=== PATIENT | female | born 1965 | race Caucasian/White ===

== ENCOUNTER → 2020-01-20 08:54 | Outpatient (BNVA) | payer MEDICARE, SELFPAY | PROVIDERS: Family Provider Internal Medicine; PCP Internal Medicine; Visit Provider Anesthesiology Pain Medicine | DX: M96.1 Postlaminectomy syndrome, not elsewhere classified (principal); M54.5 Low back pain; Z79.891 Long term (current) use of opiate analgesic | CPT/HCPCS: 64483; 64484; J1040; J2001; J3490 ==

== ENCOUNTER → 2020-02-03 09:48 | Outpatient (BNVA) | payer MEDICARE, SELFPAY | PROVIDERS: Family Provider Internal Medicine; PCP Internal Medicine; Visit Provider Anesthesiology Pain Medicine | DX: M54.5 Low back pain (principal); M54.9 Dorsalgia, unspecified; M96.1 Postlaminectomy syndrome, not elsewhere classified; M54.2 Cervicalgia; Z79.891 Long term (current) use of opiate analgesic | CPT/HCPCS: 99214 ==

== ENCOUNTER 2020-02-10 08:45 | Outpatient (CLI) | payer MEDICARE, SELFPAY ==
--- NOTE | 2020-02-10 09:00 | IR_ITS ---
WS: [id number] CERVICAL AND LUMBAR MYELOGRAMs HISTORY: Neck pain COMPARISON: 11/21/2017 FLUOROSCOPY TIME: 1.1 minutes. Procedure, risks and complications were explained to the patient. Risks including bleeding, infection , headaches, allergic reaction and seizures. Consent has been obtained. With the patient in prone position the skin over the lumbar region is cleansed with ChloraPrep and an esthetized with lidocaine. 22-gauge spinal needle is inserted into the thecal sac at the appropriate level determined by fluoroscopy. Omnipaque 300; 12 ml is injected slowly under fluoroscopy with no co mplications. Needle bevel is perpendicular to the longitudinal fibers of the dura. Stylet is reinsert ed prior to removal of the needle. Patient tolerated the procedure well. Patient will proceed to CT f or further evaluation. Good injection into the thecal sac. Posterior lumbar fusion from L4 to S1 bilaterally. No fractures. Disc spacer at L4-5 is unchanged. Large laminectomy defects are present at the L4-5 level. No fractur es are identified. Incomplete bone grafting material at the L4-5 level. There is very mild narrowing of the thecal sac at the L3-4 disc level. With flexion and extension no instability. Extensive anterior cervical fusion with interbody spacers from C3 through C7. Complete fusion across the disc spaces at C3-4, C4-5 and C5-6. The C6-7 disc space is poorly visualized radiographically. Po sterior alignment remains normal. During flexion C2 is anteriorly by 3.4 mm. IR/IR myelogram spine cervic/lumb IMPRESSION: 1. Uncomplicated cervical and lumbar myelograms. 2. Anterior cervical fusion is intact from C3 to C7 with complete ankylosis ac ross the disc spaces C3-4, C4-5 and C5-6. 3. Mild flexion instability of C2. 4. Prior posterior lumbar fusion from L4 to S1 with large L4-5 laminectomy def ects. No complications. 5. No lumbar spine instability.
[2020-02-10] MEDS: iohexol 300 mg/mL 50 mL Btl INTRATHECA (10:13)
--- NOTE | 2020-02-10 11:00 | CT_ITS ---
WS: [id number] CT CERVICAL MYELOGRAM HISTORY: Neck pain Technique: All CT scans at [facility] use at least one of these dose optimization techniq ues: automated exposure control; mA and/or kV adjustment per patient size (includes targeted exams wh ere dose is matched to clinical indication); or iterative reconstruction. DLP: 1469.42 mGycm COMPARISON: 06/25/2016 and 08/10/2013 Good opacification of thecal sac with contrast. Prior anterior cervical fusion extends from C3 through C7. Complete fusion across the C3-4, C4-5 and C5-6 disc levels. Incomplete fusion at C6-7. Moderate disc space narrowing at C7-T1 with endplate ost eophytes. Craniocervical junction is normal. The entire central canal mildly narrowed. C1-C2: Mild facet arthropathy with RIGHT foraminal osteophytes and only mild RIGHT foraminal narrowin g. C2-C3: Mild osteophytic ridging without stenosis. C3-C4: Mild osteophytic ridging without stenosis. C4-C5: Mild osteophytic ridging without stenosis. C5-C6: Mild osteophytic ridging without stenosis. C6-C7: Mild osteophytic ridging. Very mild narrowing of the LEFT foramen. No significant disc protrusion at C7-T1 identified. There is a very small RIGHT paracentral disc prot rusion. Lung apices are clear. Paraspinal soft tissues are negative. CT/CT cervical spine w con [id number] IMPRESSION: 1. Prior anterior cervical fusion from C3 through C7 is intact with no evidenc e for loosening or fracture. 2. Complete fusion across the C3-4, C4-5 and C5-6 disc spacers with incomplete fusion at the C6-7 level. 3. No significant stenosis centrally or focal disc protrusions with cord conta ct.
--- NOTE | 2020-02-10 11:30 | CT_ITS ---
WS: [id number] CT MYELOGRAM LUMBAR SPINE HISTORY: Low back pain TECHNIQUE: Contiguous 2.5 mm axial imaging performed from T12 through the mid sacral level. Bone and soft tissue windows reviewed. Sagittal and coronal reformats are submitted and reviewed. DLP: 1804.[address] scans at [facility] use at least one of these dose optimization techniques: automat ed exposure control; mA and/or kV adjustment per patient size (includes targeted exams where dose is matched to clinical indication); or iterative reconstruction. COMPARISON: 07/06/2019 Status post prior posterior lumbar fusion from L4 to S1. Vertical rods and pedicle screws appear to b e intact. No lucency or acute fracture. Large laminectomy defects are noted from L3 to L5. Moderate d isc space narrowing at L4-5 with interbody spacer. No fractures. L1-L2: L2-L3: Mild asymmetric disc bulging, asymmetric to the LEFT but no contact on the exiting nerve roots . L3-L4: Moderate diffuse disc bulging which is slightly asymmetric to the RIGHT. Ligamentum flavum hyp ertrophy and facet arthropathy. Very mild encroachment and narrowing of the central canal with disc c ontact on the L3 nerve root in the RIGHT foramen. L4-L5: Large posterior laminectomy defect. Thecal sac is widely patent with mild clumping of the nerv e roots in the periphery. No foraminal stenosis. L5-S1: Large posterior laminectomy defects with mild clumping of the nerve roots. Broad-based disc bu lging centrally. Very slight contact on the posterior L5 nerve root in the foramen but no displacemen t. Mild bilateral foraminal narrowing. Visualized sacrum is normal. No bone destruction. Moderate atherosclerosis within the visualized abdominal aorta. CT/CT lumbar spine w con [id number] IMPRESSION: 1. Status post posterior lumbar fusion from L3 to S1 bilaterally with no hardw are fracture or evidence for loosening. 2. Bilateral large laminectomy defects are noted from L3 to L5. 3. Mild disc protrusion is new with mild contact on the RIGHT L3 nerve root. M ild narrowing of the RIGHT L3-4 foramen. 4. Mild bilateral foraminal narrowing at L5-S1 with no change. 5. Mild arachnoiditis.
== END 2020-02-10 08:46 | disposition home or self-care (01) ==
LOC: RADWPI 08:51
PROVIDERS: Family Provider Internal Medicine; PCP Internal Medicine; Visit Provider Licensed Practical Nurse
DX: M54.2 Cervicalgia (principal); Z98.1 Arthrodesis status; M43.27 Fusion of spine, lumbosacral region; M51.26 Other intervertebral disc displacement, lumbar region; G03.9 Meningitis, unspecified; M48.07 Spinal stenosis, lumbosacral region; M43.22 Fusion of spine, cervical region
CPT/HCPCS: 62305; 72040; 72120; 72126; 72132; Q9967

== ENCOUNTER → 2020-03-04 13:30 | Outpatient (BNVA) | payer MEDICARE, SELFPAY | PROVIDERS: Family Provider Internal Medicine; PCP Internal Medicine; Visit Provider Anesthesiology Pain Medicine | DX: M54.41 Lumbago with sciatica, right side (principal); M54.9 Dorsalgia, unspecified; M96.1 Postlaminectomy syndrome, not elsewhere classified; M54.2 Cervicalgia; Z79.891 Long term (current) use of opiate analgesic | CPT/HCPCS: 64483; 64484; 99214; J1040; J2001; J3490 ==

== ENCOUNTER 2020-03-10 11:48 | Outpatient (CLI) | payer MEDICARE, SELFPAY ==
--- NOTE | 2020-03-10 11:56 | MM_ITS ---
WS: [id number] BILATERAL DIGITAL SCREENING MAMMOGRAPHY WITH CAD CLINICAL INFORMATION: SCREENING HISTORY: Screening mammogram. No current complaints. COMPARISON: June 19, 2010 TECHNIQUE: Bilateral CC and MLO views. FINDINGS: Scattered fibroglandular densities bilaterally. No suspicious focal mass, asymmetry, calcifications, or architectural distortion. No evidence of malignancy. Stable dense parenchymal tissue subareolar bi laterally. MM/[place] [id number] IMPRESSION: BI-RADS: 2-Benign FOLLOW UP: 1 Year Follow-up Recommend return to annual screening mammography.
== END 2020-03-10 11:49 | disposition home or self-care (01) ==
LOC: RADSHAW 11:54
PROVIDERS: PCP Internal Medicine; Visit Provider Internal Medicine
DX: Z12.31 Encounter for screening mammogram for malignant neoplasm of breast (principal)
CPT/HCPCS: 77067

== ENCOUNTER → 2020-03-17 13:42 | Outpatient (BNVA) | payer MEDICARE, SELFPAY | PROVIDERS: Family Provider Internal Medicine; PCP Internal Medicine; Visit Provider Anesthesiology Pain Medicine | DX: M54.41 Lumbago with sciatica, right side (principal); M54.9 Dorsalgia, unspecified; M54.2 Cervicalgia; M96.1 Postlaminectomy syndrome, not elsewhere classified | CPT/HCPCS: 99213 ==

== ENCOUNTER → 2020-03-28 13:50 | Outpatient (BNVA) | payer MEDICARE, SELFPAY | PROVIDERS: Family Provider Internal Medicine; PCP Internal Medicine; Visit Provider Anesthesiology Pain Medicine | DX: M54.41 Lumbago with sciatica, right side (principal); M96.1 Postlaminectomy syndrome, not elsewhere classified; M54.9 Dorsalgia, unspecified | CPT/HCPCS: 64483; 64484; J1040; J3490 ==

== ENCOUNTER → 2020-05-13 09:37 | Outpatient (BNVA) | payer MEDICARE, SELFPAY | PROVIDERS: Family Provider Internal Medicine; PCP Internal Medicine; Visit Provider Anesthesiology Pain Medicine | DX: M54.41 Lumbago with sciatica, right side (principal); M54.9 Dorsalgia, unspecified; M96.1 Postlaminectomy syndrome, not elsewhere classified; M54.2 Cervicalgia; Z79.891 Long term (current) use of opiate analgesic | CPT/HCPCS: 99213 ==

== ENCOUNTER → 2020-06-06 10:27 | Outpatient (BNVA) | payer MEDICARE, SELFPAY | PROVIDERS: Family Provider Internal Medicine; PCP Internal Medicine; Visit Provider Licensed Practical Nurse | DX: M96.1 Postlaminectomy syndrome, not elsewhere classified (principal) | CPT/HCPCS: 99213 ==

== ENCOUNTER 2020-06-17 13:27 | Outpatient (CLI) | payer MEDICARE, SELFPAY ==
--- NOTE | 2020-06-17 13:43 | MR_ITS ---
WS: [id number] MRI LUMBAR SPINE WITH AND WITHOUT CONTRAST. HISTORY: LOW BACK PAIN COMPARISON: 02/10/2020 CT lumbar spine and prior MRI 09/18/2017 TECHNIQUE: Sagittal and axial multisequence imaging is submitted. Sagittal and axial T1 fat sat seque nces post-ProHance 17 cc IV. Prior fusion hardware in the cervical spine. Mild straightening of the normal lumbar alignment. Pedicle screws and vertical rods extend from L4 to S1 bilaterally. Mild disc desiccation at L4-5 and L5-S1 with a disc spacer at L4-5. No marrow edema or acute fracture. The remaining discs are well maintained. Conus terminates normally at L2. L1-L2: No stenosis. Very mild facet arthritis. L2-L3: No stenosis. Mild facet joint arthritis. L3-L4: Mild annular disc bulging. Very shallow RIGHT foraminal soft tissue protrusion. No contact on the nerve root. Minimal narrowing of the foramen. L4-L5: Widely patent thecal sac with a large posterior laminectomy defect. Nerve roots are becoming c lumped within the thecal sac. There is very mild encroachment into the foramen by osteophytes. No sev ere stenosis. L5-S1: Large posterior laminectomy defect. No stenosis. Clumping of the nerve roots in the periphery of the thecal sac. No stenosis or recurrent disc herniation. On the postcontrast imaging there is no discitis or osteomyelitis. On the postcontrast imaging there is enhancement in the RIGHT L3-4 foramen surrounding the area of the described disc protrusion. There is no enhancement of the disc protrusion. No disc contact on the nerve root. Additional mild enhance ment in the foramen and surrounding the facet joints of L3-4, L4-5 and L5-S1 MR/MR lumbar spine wo/w con [id number] IMPRESSION: 1. Status post posterior lumbar fusion from L4 to S1. No complications are teresita dent. 2. Very tiny new RIGHT foraminal disc protrusion at L3-4 with no significant c ontact on the nerve root. 3. Mild enhancement surrounding the facet joints of L3-4 through L5-S1. 4. Arachnoiditis.
--- NOTE | 2020-06-17 16:00 | XR_ITS ---
WS: [id number] LATERAL LUMBAR SPINE: 3 view. Lateral radiographs are performed in upright neutral, flexion and extension to the patient's toleranc e. HISTORY: Low back pain COMPARISON: 09/08/2018 Prior posterior lumbar fusion with vertical rods and pedicle screws from L4 to S1. Hardware is intact . No lucency around the screws. Mild increase in the lumbar lordosis. Mild narrowing of the disc spaces at L4-5 and L5-S1. With flexi on and extension there is very little movement of the vertebral bodies. No instability. Mild atherosclerosis aorta. XR/XR lumbar spine f/e only [id number] IMPRESSION: 1. Prior L4-S1 lumbar fusion is stable. 2. No lumbar spine instability.
== END 2020-06-17 13:28 | disposition home or self-care (01) ==
LOC: RADWPI 13:33
PROVIDERS: Family Provider Internal Medicine; PCP Internal Medicine; Visit Provider Licensed Practical Nurse
DX: M43.26 Fusion of spine, lumbar region (principal); G03.9 Meningitis, unspecified; M43.27 Fusion of spine, lumbosacral region; M51.26 Other intervertebral disc displacement, lumbar region
CPT/HCPCS: 72120; 72158; A9579

== ENCOUNTER → 2020-06-22 08:47 | Outpatient (BNVA) | payer MEDICARE, SELFPAY | PROVIDERS: Family Provider Internal Medicine; PCP Internal Medicine; Visit Provider Licensed Practical Nurse | DX: M96.1 Postlaminectomy syndrome, not elsewhere classified (principal) | CPT/HCPCS: 99214 ==

== ENCOUNTER → 2020-07-07 10:48 | Outpatient (BNVA) | payer MEDICARE, SELFPAY | PROVIDERS: Family Provider Internal Medicine; PCP Internal Medicine; Visit Provider Anesthesiology Pain Medicine | DX: G89.29 Other chronic pain (principal); M54.9 Dorsalgia, unspecified; M96.1 Postlaminectomy syndrome, not elsewhere classified; M54.2 Cervicalgia; M79.609 Pain in unspecified limb; Z79.891 Long term (current) use of opiate analgesic | CPT/HCPCS: 99213; 99214 ==

== ENCOUNTER → 2020-07-11 13:54 | Outpatient (BNVA) | payer MEDICARE, SELFPAY | PROVIDERS: Family Provider Internal Medicine; PCP Internal Medicine; Visit Provider Anesthesiology Pain Medicine | DX: M47.816 Spondylosis without myelopathy or radiculopathy, lumbar region (principal); M54.9 Dorsalgia, unspecified; Z79.891 Long term (current) use of opiate analgesic | CPT/HCPCS: 64493; 64494; 64495; J1040; J3490 ==

== ENCOUNTER → 2020-08-08 09:12 | Outpatient (BNVA) | payer MEDICARE, SELFPAY | PROVIDERS: Family Provider Internal Medicine; PCP Internal Medicine; Visit Provider Anesthesiology Pain Medicine | DX: M54.41 Lumbago with sciatica, right side (principal); M79.604 Pain in right leg; M96.1 Postlaminectomy syndrome, not elsewhere classified; M54.9 Dorsalgia, unspecified; M54.2 Cervicalgia; Z79.891 Long term (current) use of opiate analgesic | CPT/HCPCS: 99213; 99214 ==

== ENCOUNTER → 2020-09-05 09:20 | Outpatient (BNVA) | payer MEDICARE, SELFPAY | PROVIDERS: Family Provider Internal Medicine; PCP Internal Medicine; Visit Provider Anesthesiology Pain Medicine | DX: M54.41 Lumbago with sciatica, right side (principal); M54.9 Dorsalgia, unspecified; M96.1 Postlaminectomy syndrome, not elsewhere classified; M54.2 Cervicalgia; Z79.891 Long term (current) use of opiate analgesic | CPT/HCPCS: 99213 ==

== ENCOUNTER → 2020-10-13 09:14 | Outpatient (BNVA) | payer MEDICARE, SELFPAY | PROVIDERS: Family Provider Internal Medicine; PCP Internal Medicine; Visit Provider Anesthesiology Pain Medicine | DX: M96.1 Postlaminectomy syndrome, not elsewhere classified (principal); M54.9 Dorsalgia, unspecified; M54.2 Cervicalgia; R51.9 Headache, unspecified; Z79.891 Long term (current) use of opiate analgesic | CPT/HCPCS: 99214 ==

== ENCOUNTER → 2020-11-23 08:14 | Outpatient (BNVA) | payer MEDICARE, SELFPAY | PROVIDERS: Family Provider Internal Medicine; PCP Internal Medicine; Visit Provider Anesthesiology Pain Medicine | DX: G89.29 Other chronic pain (principal); M54.41 Lumbago with sciatica, right side; M96.1 Postlaminectomy syndrome, not elsewhere classified; M54.9 Dorsalgia, unspecified; M25.561 Pain in right knee; M54.2 Cervicalgia; Z79.891 Long term (current) use of opiate analgesic | CPT/HCPCS: 20610; 99214; J1030; J3490 ==

== ENCOUNTER → 2020-11-28 13:53 | Outpatient (BNVA) | payer MEDICARE, SELFPAY | PROVIDERS: Family Provider Internal Medicine; PCP Internal Medicine; Visit Provider Anesthesiology Pain Medicine | DX: M54.16 Radiculopathy, lumbar region (principal); M96.1 Postlaminectomy syndrome, not elsewhere classified; M54.9 Dorsalgia, unspecified; Z79.891 Long term (current) use of opiate analgesic | CPT/HCPCS: 64483; 64484; J1030; J1100; J3490 ==

== ENCOUNTER → 2020-12-22 10:15 | Outpatient (BNVA) | payer MEDICARE, SELFPAY | PROVIDERS: Family Provider Internal Medicine; PCP Internal Medicine; Visit Provider Anesthesiology Pain Medicine | DX: M54.9 Dorsalgia, unspecified (principal); M96.1 Postlaminectomy syndrome, not elsewhere classified; M19.90 Unspecified osteoarthritis, unspecified site; M54.2 Cervicalgia; M25.561 Pain in right knee; Z79.891 Long term (current) use of opiate analgesic | CPT/HCPCS: 99215 ==

== ENCOUNTER → 2021-01-23 08:04 | Outpatient (BNVA) | payer MEDICARE, SELFPAY | PROVIDERS: Family Provider Internal Medicine; PCP Internal Medicine; Referring Provider Anesthesiology Pain Medicine; Visit Provider Specialist | DX: M25.562 Pain in left knee (principal); M25.561 Pain in right knee | CPT/HCPCS: 73560; 73565 ==

== ENCOUNTER 2021-02-03 07:21 | Outpatient (RCR) | payer MEDICARE, SELFPAY | END 2021-02-20 23:59 | disposition home or self-care (01) | LOC: SPT 07:21 | PROVIDERS: Family Provider Internal Medicine; PCP Internal Medicine; Referring Provider Specialist; Visit Provider Specialist | DX: M17.11 Unilateral primary osteoarthritis, right knee (principal) | CPT/HCPCS: 97110; 97161 ==

== ENCOUNTER 2021-02-17 17:01 | Emergency (ER) | payer MEDICARE, SELFPAY ==
[2021-02-17 17:27] VITALS: BP 162/97; PULSE 63; RESP 18; TEMP 36.6; O2SAT 97; BMI 27.4
--- NOTE | 2021-02-17 17:38 | XRR_ITS ---
PROCEDURE INFORMATION: Exam: XR Chest Exam date and time: 02/17/2021 6:05 PM Age: 55 years old Clinical indication: Prior surgery; Surgery type: Spine; Patient HX: Palpatations xtoday, ex smoker TECHNIQUE: Imaging protocol: XR of the chest. Views: 1 view. COMPARISON: CR Chest 1 [place] [id number] 08/08/2018 4:51 AM FINDINGS: Lungs: Visualized portions of the lungs are clear. Pleural spaces: Unremarkable. No pleural effusion. No pneumothorax. Heart/Mediastinum: Heart is within normal limits of size. Bones/joints: There are postsurgical changes in the cervical spine unchanged from previous. XR/XR chest 1V portable [id number] IMPRESSION: No acute infiltrate.
[2021-02-17 18:22] LABS: Basophils % 0.8 %; Eosinophils # 0.1 10^3/uL (0.0-0.8); Eosinophils % 2.5 %; Hematocrit 40.9 % (37.0-47.0); Hemoglobin 13.5 g/dL (11.5-15.3); Lymphocytes # 2.1 10^3/uL (0.8-4.8); Lymphocytes % 39.5 %; Mean Corpuscular Hemoglobin 30.1 pg (28.0-34.0); Mean Corpuscular Volume 91.1 fL (81-99); Mean Platelet Volume 10.9 fL (7.4-10.4); Monocytes # 0.6 10^3/uL (0.2-0.9); Monocytes % 10.6 %; Neutrophils # 2.45 10^3/uL (1.8-7.7); Neutrophils % 46.4 %; Nucleated Red Blood Cells % 0 %; Platelet Count 323 10^3/cmm (130-400); Red Blood Count 4.49 10^6/uL (4.1-5.3); Red Cell Distribution Width 12.9 % (12.1-15.1); White Blood Count 5.3 10^3/uL (4.0-10.0)
[2021-02-17 18:57] LABS: Troponin(5th) Baseline 6 ng/L (0-10)
[2021-02-17 19:07] LABS: Alanine Aminotransferase 10 U/L (0-33); Albumin Level 4.1 g/dL (3.5-5.2); Alkaline Phosphatase 53 IU/L (35-105); Anion Gap 13.1 (5-19); Aspartate Amino Transferase 17 U/L (0-32); Blood Urea Nitrogen 10 mg/dL (6-20); Carbon Dioxide 27 mmol/L (22-29); Chloride 99 mmol/L (98-107); Globulin 2.3 g/dL (1.3-4.6); Glomerular Filtration Rate 87.5 mL/min (90-130); Glucose 94 mg/dL (65-115); NT Pro B Type Natriuretic Pept 168 pg/mL (0-125); Osmolality Calculated 279 mOsm/kg (285-295); Potassium 4.1 mmol/L (3.5-5.1); Sodium 135 mmol/L (136-145); Thyroid Stimulating Hormone 0.89 uIU/mL (0.27-4.20); Total Bilirubin 0.3 mg/dL (0.15-1.2); Total Protein 6.4 g/dL (6.6-8.7)
[2021-02-17 19:12] VITALS: BP 143/99; PULSE 51; RESP 21; O2SAT 99
--- NOTE | 2021-02-17 19:26 | W.ED.ARRPALP ---
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 She states that this started about 2 hours ago. She has had an episode of this in the past and was evaluated in the emergency department and at that time was told she had atrial fibrillation. She was then discharged to follow-up with a guard dance hall but she spontaneously cardioverted. She is not on any medications for A. fib. She complains of generalized weakness. No chest pain, no difficulty breathing. complaint: palpitations Onset (ago): hour(s) (2) Duration: constant Severity: moderate Context: occurred during rest Associated symptoms: Deny anxiety, cough, diaphoresis, muscle cramps, nausea, paresthesias, pre-syncope, sense of impending doom, short of breath, syncope or vomiting Review of Systems General: Reports: 10 or more systems reviewed and unremarkable except in HPI and below Const: Denies: diaphoresis Card: Denies: syncope or pre-syncope GI: Denies: nausea or vomiting Musc: Denies: muscle cramps Psych: Denies: anxiety PFSH ED PFSH: Medical History Cervical post-laminectomy syndrome 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 History of decompression of ulnar nerve (~2009) History of lumbar spinal fusion History of lumbar surgery (04/14/15) Dr. Espinosa, Right L5-S1 laminotomy/foraminotomy/partial facetectomy, reexploration. Family History Mother Heart disease Hypertension Kidney disease Sister Hypertension Social History Smoking and tobacco status: former smoker Second hand smoke exposure: No Alcohol intake: never Household members: spouse Marital status: Current occupational status: disabled History of recent travel: No Physical Exam Const: COMMON NORMALS: no acute distress, average body habitus, patient oriented x3, no limitations, healthy appearing, alert and well nourished HENMT: COMMON NORMALS: normocephalic, atraumatic and moist oral mucous membranes HEAD & SCALP: normocephalic and atraumatic Neck/C-Spine: COMMON NORMALS: no meningeal signs and no JVD Chest: COMMONS NORMALS: normal inspection of the chest and normal palpation of entire chest wall Resp: COMMON NORMALS: normal respiratory effort, No retractions, No use of accessory muscles, clear to auscultation bilaterally and percussion normal AUSCULTATION: clear to auscultation bilaterally PERCUSSION: percussion normal Cardio: COMMON NORMALS: no JVD, regular rate, regular rhythm, S1 normal heart sound present, S2 normal heart sound present, No gallops present (Cardio), No clicks present (Cardio), No murmurs present (Cardio), No rub (Cardio) and Peripheral pulses 2+ throughout RATE: regular rate RHYTHM: regular rhythm HEART SOUNDS: S1 normal heart sound present and S2 normal heart sound present PERIPHERAL PULSES: Peripheral pulses 2+ throughout GI: COMMON NORMALS: Normal to inspection, nondistended, normoactive bowel sounds present, Soft to palpation, non-tender, No hepatosplenomegaly present, no masses and no bruits PALPATION: Yes Soft to palpation and Yes No hepatosplenomegaly present Extremity: COMMON NORMALS: normal to inspection, full ROM, capillary refill normal, no calf tenderness and no pedal edema Neuro: COMMON NORMALS: patient oriented x3 SENSORIUM/ORIENTATION: Yes alert MENINGEAL SIGNS: Yes no meningeal signs Course Reevaluation(s): Reevaluation #1: Discussed her lab and imaging findings with her. Negative for acute findings. Explained that she may benefit from a Holter or an event monitor. We will set her up for 1. She voiced understanding and is in agreement with this plan. She will not be discharged home with any new medications. Time: 19:26 Vital Signs: Vital signs: Vital Signs Temperature 97.8 F 02/17/21 17:27 Pulse Rate 51 L 02/17/21 19:37 Respiratory Rate 20 H 02/17/21 19:37 Blood Pressure 160/95 02/17/21 19:37 Pulse Oximetry 96 02/17/21 19:37 MDM - Arrhythmia/Palpitations MDM Narrative: Medical decision making narrative: 55-year-old female patient who presents to the emergency department with palpitations. Evaluation in the emergency department is unremarkable. She is discharged home with orders for an event monitor. She is to follow-up with her primary care provider. Lab Data: Labs: Lab Results 02/17/21 02/17/21 02/17/21 Range/Units 18:07 18:07 18:07 WBC 5.3 (4.0-10.0) 10^3/ uL RBC 4.49 (4.1-5.3) 10^6/u L Hgb 13.5 (11.5-15.3) g/dL Hct 40.9 (37.0-47.0) % MCV 91.1 (81-99) fL MCH 30.1 (28.0-34.0) pg MCHC 33.0 (30.0-36.0) g/dL RDW 12.9 (12.1-15.1) % Plt Count 323 (130-400) 10^3/c mm MPV 10.9 H (7.4-10.4) fL Neut % (Auto) 46.4 % Lymph % (Auto) 39.5 % Saline % (Auto) 10.6 % Eos % (Auto) 2.5 % Baso % (Auto) 0.8 % Neut # (Auto) 2.45 (1.8-7.7) 10^3/u L Lymph # (Auto) 2.1 (0.8-4.8) 10^3/u L Saline # (Auto) 0.6 (0.2-0.9) 10^3/u L Eos # (Auto) 0.1 (0.0-0.8) 10^3/u L Baso # (Auto) 0.0 (0.0-0.1) 10^3/u L Nucleated RBC % (a uto) 0 % Nucleated RBCs # 0.0 /100WBC Sodium 135 L (136-145) mmol/L Potassium 4.1 (3.5-5.1) mmol/L Chloride 99 (98-107) mmol/L Carbon Dioxide 27 (22-29) mmol/L Anion Gap 13.1 (5-19) BUN 10 (6-20) mg/dL Creatinine 0.7 (0.5-0.9) mg/dL GFR Calculation 87.5 L (90-130) mL/min Glucose 94 (65-115) mg/dL Calculated Osmolal ity 279 L (285-295) mOsm/k g Calcium 9.0 (8.5-10.5) mg/dL Total Bilirubin 0.3 (0.15-1.2) mg/dL AST 17 (0-32) U/L ALT 10 (0-33) U/L Alkaline Phosphata se 53 (35-105) IU/L Troponin T Baselin e 6 (0-10) ng/L NT-Pro-B Natriuret Pep 168 H (0-125) pg/mL Total Protein 6.4 L (6.6-8.7) g/dL Albumin 4.1 (3.5-5.2) g/dL Globulin 2.3 (1.3-4.6) g/dL TSH 0.89 (0.27-4.20) uIU/ mL Imaging Data^: CXR: Attestation: I personally reviewed and interpreted this imaging study as follows: Radiologist's impression: [address] [id number] ReportSigned Patient: [facility] [place] #: [id number]: 1965Acct#:[id number]/Sex: 55 / FADM Date: 02/17/21Loc: ERRoom/Bed:Attending Dr: Ordering Provider/Ordering MD: Vinh Hussein MD, [facility] [place] Date of Service: 02/17/21 Procedure(s): XR chest 1V portable [id number] Accession Number(s): [id number] Report Number: [id number] PROCEDURE INFORMATION: Exam: XR Chest Exam date and time: 02/17/2021 6:05 PM Age: 55 years old Clinical indication: Prior surgery; Surgery type: Spine; Patient HX: Palpatations xtoday, ex smoker TECHNIQUE: Imaging protocol: XR of the chest. Views: 1 view. COMPARISON: CR Chest 1 [place] [id number] 08/08/2018 4:51 AM FINDINGS: Lungs: Visualized portions of the lungs are clear. Pleural spaces: Unremarkable. No pleural effusion. No pneumothorax. Heart/Mediastinum: Heart is within normal limits of size. Bones/joints: There are postsurgical changes in the cervical spine unchanged from previous. XR/XR chest 1V portable [id number] IMPRESSION: No acute infiltrate. Dictated By:Mykel Rubin By:Mykel Rubin Date/Time:02/17/211846DD/ 44 EKG Data^: EKG 1: Attestation: I personally reviewed and interpreted this EKG as follows: EKG interpretation date: 02/17/21 EKG interpretation time: 18:16 Prior EKG tracings: not available for review Interpretation: Sinus bradycardia. Heart rate [address] changes. Other EKG comments: Chest X-Ray 02/17/21 17:38 IMPRESSION: No acute infiltrate. Discharge Plan Discharge Patient Disposition: Home Clinical Impression: Palpitations Condition: Stable Prescriptions: Continued lisinopril 5 mg tablet 5 mg PO DAILY@0900 RF: 0 albuterol sulfate 90 mcg/actuation aerosol powdr breath activated 2 inh INHALATION Q6H PRN (Reason: Shortness Of Breath) RF: 0 citalopram [Celexa] 20 mg tablet 20 mg PO DAILY@0900 RF: 0 atorvastatin 20 mg tablet 20 mg PO DAILY@2200 RF: 0 methylprednisolone acetate [Depo-Medrol] 40 mg/mL suspension 40 mg INTRA-ZANA ONCE Qty: 1 RF: 0 magnesium oxide 500 mg tablet 500 mg PO DAILY@0900 RF: 0 gabapentin 600 mg tablet 600 mg PO Q6H PRN (Reason: chronic pain) 30 Days Qty: 120 RF: 0 furosemide 40 mg Tablet 40 mg PO DAILY PRN (Reason: Weight Gain) RF: 0 ibuprofen 200 mg Tablet 200 - 400 mg PO Q6H PRN (Reason: Pain) RF: 0 Symbicort 2 puff inhalation BID RF: 0 potassium 1 tab PO DAILY PRN (Reason: WITH LASIX) RF: 0 meloxicam 15 mg tablet 15 mg PO DAILY@0900 RF: 0 Discharge Orders: Discharge ED (Routine); Ordered 02/17/21 Ordered By: Vinh Hussein Referrals: Matias Nunez DO [Primary Care Provider] - 1-3 days Discharge Diet: Usual diet Discharge Activity: Increase activity as tolerated Patient Instructions: Palpitations (ED) Activity Restrictions/Additional Instructions: Return for any new or worsening symptoms. Follow-up with your primary care provider within 3 days. You will be contacted by case management to schedule you for an event monitor to monitor your heart rate when you are feeling this way. Continue home medications. Coding Level of Care Code ED Disk Recordist for Barber Henning
[2021-02-17 19:37] VITALS: BP 160/95; PULSE 51; RESP 20; O2SAT 96
--- NOTE | 2021-02-17 23:38 | ECG_ITS ---
[facility] Test Date: 2021-02-17 Pat Name: Janel Mesa Department: Room: Gender: Female Child Life Assistant: : 1965 Requested By: Vinh Hussein I Order Number: [id number] Cruz MD: Christine Bhatia M.D. Measurements Intervals [place] Rate: 49 P: 67 WV: 149 QRS: 69 QRSD: 86 T: 55 QT: 416 QTc: 379 Interpretive Statements SINUS BRADYCARDIA SEPTAL MYOCARDIAL INFARCTION , OF INDETERMINATE AGE [40+ ms Q WAVE IN V1/V2] Compared to ECG 08/08/2018 10:18:31 Myocardial infarct finding now present Sinus rhythm no longer present Electronically Signed On 02-18-2021 9:51:30 CDT by Christine Bhatia M.D. [id number]
--- NOTE | 2021-02-21 15:26 | DCPLANNER ---
district sales manager had message to schedule an out patient 21 day event monitor for patient. district sales manager faxed signed order for a 21 day event monitor to [facility]. Clinic will call patient with appointment information. district sales manager will call patient for appointment information.
--- NOTE | 2021-03-02 08:21 | DCPLANNER ---
Patient has a follow up appointment scheduled for , March 02, 2021 at 11:00 with [facility] for a 21 day event monitor. Clinic will call patient with appointment information.
--- NOTE | 2021-03-03 10:50 | DCPLANNER ---
Patient had a follow up appointment for patient with [facility] on 03.02.21 for a 21 day event monitor - patient did attend appointment.
== END 2021-02-17 19:37 | disposition home or self-care (01) ==
PROVIDERS: Emergency Provider Family Medicine; PCP Internal Medicine
DX: R00.2 Palpitations (principal); Z87.891 Personal history of nicotine dependence
CPT/HCPCS: 71045; 80053; 83880; 84443; 84484; 85025; 93005; 99283

== ENCOUNTER 2021-02-21 06:00 | Outpatient (RCR) | payer MEDICARE, SELFPAY | END 2021-03-07 14:14 | disposition home or self-care (01) | LOC: SPT 06:00 | PROVIDERS: Family Provider Internal Medicine; PCP Internal Medicine; Referring Provider Specialist; Visit Provider Specialist | DX: M17.11 Unilateral primary osteoarthritis, right knee (principal) | CPT/HCPCS: 97110 ==

== ENCOUNTER 2021-02-26 11:16 | Emergency (ER) | payer MEDICARE, SELFPAY ==
--- NOTE | 2021-02-26 11:20 | ECG_ITS ---
[facility] Test Date: 2021-02-26 Pat Name: Janel Mesa Department: Room: Gender: Female Magnetic Resonance Technologist: : 1965 Requested By: Amol Ward Order Number: [id number] Cruz MD: Petar Baird M.D. Measurements Intervals [place] Rate: 52 P: 35 IN: 142 QRS: 60 QRSD: 85 T: 40 QT: 420 QTc: 391 Interpretive Statements SINUS BRADYCARDIA SEPTAL MYOCARDIAL INFARCTION [40+ ms Q WAVE IN V1/V2], PROBABLY OLD WARNING: DATA QUALITY MAY AFFECT INTERPRETATION Compared to ECG 02/17/2021 18:16:39 No significant changes Electronically Signed On 02-26-2021 22:14:00 CDT by Petar Baird M.D. [id number] f
--- NOTE | 2021-02-26 11:20 | XRR_ITS ---
PROCEDURE INFORMATION: Exam: XR Chest Exam date and time: 02/26/2021 11:31 AM Age: 55 years old Clinical indication: Cough TECHNIQUE: Imaging protocol: XR of the chest. Views: 1 view. COMPARISON: CR (CHEST, ) 02/17/2021 6:05 PM FINDINGS: Lungs: Hyperinflation, without acute airspace disease. Pleural spaces: No pleural effusion. Heart/Mediastinum: No cardiomegaly. Bones/joints: Cervical spine fusion. When correlating with the previous study, no significant interval changes are present. XR/XR chest 1V portable [id number] IMPRESSION: Hyperinflation, without acute airspace or pleural disease.
--- NOTE | 2021-02-26 11:25 | ED_ITS ---
HPI - General Adult General: Chief complaint: Chest Pain Stated complaint: WEAKNESS; CHEST PAIN Time Seen by Provider: 02/26/21 11:18 History of Present Illness: HPI narrative: This patient is a 55-year-old female who presents to the emergency department complaint of dizziness and not feeling well. [facility] and she had a low heart rate in the 40s and was complained of dizziness. EMS reports that they gave patient 0.5 mg of atropine and then increased her rate to around the mid 60s. Subsequently the heart rate did reduce back down to the middle 50s the patient's dizziness resolved. Patient states that she has been on gabapentin 600 mg 3 times daily for a long time but subsequently was switched to 600 mg every 6 hours few months ago. Patient states 40 of Lasix and lisinopril. Patient was here 1 week ago in the emergency department for evaluation for palpitations and at that time had a negative evaluation At that time did discuss at length with patient about her low heart rate and she was going to be set up for an event monitor as an outpatient with cardiology. Patient states that has not been set up yet. Patient denies any significant chest pain at this time. Will do medical evaluation treat as needed Onset (ago): week(s) Severity: similar to prior episodes Pain Consistency: constant Associated symptoms: Reports palpitations; Deny chest pain, dyspnea, headache(s), nausea, rash or vomiting Review of Systems General: Reports: 10 or more systems reviewed and unremarkable except in HPI and below Const: Denies: fever(s), chills, body aches or fatigue Eyes: Denies: change in vision or blurry vision ENMT: Denies: throat pain, hoarseness or mouth pain Card: Reports: palpitations; Denies: chest pain, irregular heart rhythm, edema, swelling of feet/ankles or lightheadedness Resp: Denies: dyspnea, productive cough, non-productive cough, wheezing or pain on inspiration GI: Denies: abdominal pain, nausea or vomiting : Denies: flank pain, difficulty voiding, dysuria, urinary frequency, urinary urgency or urinary hesitancy Musc: Denies: neck pain, back pain, extremity pain, extremity swelling, joint pain, joint swelling, joint redness, joint warmth or limited range of motion Skin/Breast: Denies: rash, pruritus, erythema or skin tenderness Neuro: Reports: dizziness; Denies: headache(s), numbness in extremities or weakness in extremities Psych: Denies: anxiety or depression PFSH ED PFSH: Medical History Cervical post-laminectomy 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 History of decompression of ulnar nerve (~2009) History of lumbar spinal fusion History of lumbar surgery (04/14/15) Dr. Espinosa, Right L5-S1 laminotomy/foraminotomy/partial facetectomy, reexploration. Family History Mother Heart disease Hypertension Kidney disease Sister Hypertension Social History Smoking and tobacco status: former smoker Second hand smoke exposure: No Alcohol intake: never Household members: spouse Marital status: Current occupational status: disabled History of recent travel: No Physical Exam Const: COMMON NORMALS: no acute distress, average body habitus, patient oriented x3, no limitations, healthy appearing, alert and well nourished HENMT: COMMON NORMALS: normocephalic, atraumatic, hearing grossly normal bilaterally, external ears normal, EAC's normal, TM's normal bilaterally, Normal external nose present, Normal nasal mucous membranes and turbinates present, moist oral mucous membranes, oropharynx normal, dentition normal and gingiva normal HEAD & SCALP: normocephalic and atraumatic NOSE: Normal external nose present and Normal nasal mucous membranes and turbinates present EXTERNAL EAR: Yes external ears normal EXTERNAL AUDITORY CANAL: EAC's normal TYMPANIC MEMBRANE: TM's normal bilaterally Neck/C-Spine: COMMON NORMALS: full ROM, no lymphadenopathy, supple, no meningeal signs, no JVD, Thyroid normal and No carotid bruits THYROID: Thyroid normal Chest: COMMONS NORMALS: normal inspection of the chest, normal palpation of entire chest wall, normal inspection of the breasts and normal palpation of the breasts Breast/axilla inspection: Yes normal inspection of the breasts BREAST/AXILLA PALPATION: Yes normal palpation of the breasts Resp: COMMON NORMALS: normal respiratory effort, No retractions, No use of accessory muscles, clear to auscultation bilaterally and percussion normal AUSCULTATION: clear to auscultation bilaterally PERCUSSION: percussion normal Cardio: COMMON NORMALS: no JVD, regular rhythm, S1 normal heart sound present, S2 normal heart sound present, No gallops present (Cardio), No clicks present (Cardio), No murmurs present (Cardio), No rub (Cardio) and Peripheral pulses 2+ throughout RATE: bradycardic RHYTHM: regular rhythm HEART SOUNDS: S1 normal heart sound present and S2 normal heart sound present PERIPHERAL PULSES: Peripheral pulses 2+ throughout GI: COMMON NORMALS: Normal to inspection, nondistended, normoactive bowel sounds present, Soft to palpation, non-tender, No hepatosplenomegaly present, no masses and no bruits PALPATION: Yes Soft to palpation and Yes No hepatosplenomegaly present : COMMON NORMALS: Yes no CVA tenderness, Yes normal external appearance, Yes normal appearance of the vagina, Yes normal appearance of the cervix, Yes normal bimanual exam, Yes No adnexal tenderness and Yes no masses BLADDER/KIDNEY EXAM: Yes no CVA tenderness BIMANUAL EXAM - VAGINA & UTERUS: Yes normal bimanual exam Back/Pelvis: COMMON NORMALS: no CVA tenderness, thoracic and lumbar spine normal to inspection, no thoracic nor lumbar tenderness, thoraco-lumbar ROM normal and straight leg raise negative bilaterally Extremity: COMMON NORMALS: normal to inspection, full ROM, capillary refill normal, no joint enlargement, no clubbing, cyanosis or edema, no calf tenderness and no pedal edema Neuro: COMMON NORMALS: patient oriented x3 SENSORIUM/ORIENTATION: Yes alert MENINGEAL SIGNS: Yes no meningeal signs Course Reevaluation(s): Reevaluation #1: Patient doing well with no complaints. Patient ambulates to the bathroom without difficulty with no complaints of dizziness. Patient's heart rate has been running around 50 during observation. Still waiting on labs we will continue to monitor patient Time: 13:02 Consultations: Consultation #1: I did discuss at length with Dr. Baird. He states he will follow the patient up as an outpatient. He record request that the patient be scheduled for an outpatient exercise stress test. And an outpatient Holter monitor. He will see patient in the clinic. Patient is to schedule an appointment. We will have case management make arrangements for testing. Time: 13:23 Vital Signs: Vital signs: Vital Signs Temperature 98.4 F 02/26/21 11:27 Pulse Rate 48 L 02/26/21 13:17 Respiratory Rate 18 02/26/21 13:17 Blood Pressure 123/68 02/26/21 13:17 Pulse Oximetry 99 02/26/21 13:17 MDM - General Adult MDM Narrative: Medical decision making narrative: This patient is a 55-year-old female who presents to the emergency department complaint of dizziness and not feeling well. EMS [facility] and she had a low heart rate in the 40s and was complained of dizziness. EMS reports that they gave patient 0.5 mg of atropine and then increased her rate to around the mid 60s. Subsequently the heart rate did reduce back down to the middle 50s the patient's dizziness resolved. Patient states that she has been on gabapentin 600 mg 3 times daily for a long time but subsequently was switched to 600 mg every 6 hours few months ago. Patient states 40 of Lasix and lisinopril. Patient was here 1 week ago in the emergency department for evaluation for palpitations and at that time had a negative evaluation DrAminata At that time did discuss at length with patient about her low heart rate and she was going to be set up for an event monitor as an outpatient with cardiology. Patient states that has not been set up yet. Patient denies any significant chest pain at this time. Patient doing well with no complaints. Patient ambulates to the bathroom without difficulty with no complaints of dizziness. Patient's heart rate has been running around 50 during observation. Still waiting on labs we will continue to monitor patient I did discuss at length with Dr. Baird. He states he will follow the patient up as an outpatient. He record request that the patient be scheduled for an outpatient exercise stress test. And an outpatient Holter monitor. He will see patient in the clinic. Patient is to schedule an appointment. We will have case management make arrangements for testing. Medical Records: Attestation: I reviewed the patient's medical records. Lab Data: Attestation: I reviewed the patient's lab results. Labs: Lab Results 02/26/21 02/26/2121 Range/Units 11:36 11:36 11:36 WBC 4.8 (4.0-10.0) 10^3/ uL RBC 4.32 (4.1-5.3) 10^6/u L Hgb 13.1 (11.5-15.3) g/dL Hct 41.1 (37.0-47.0) % MCV 95.1 (81-99) fL MCH 30.3 (28.0-34.0) pg MCHC 31.9 (30.0-36.0) g/dL RDW 13.0 (12.1-15.1) % Plt Count 235 (130-400) 10^3/c mm MPV 12.1 H (7.4-10.4) fL Neut % (Auto) 54.2 % Lymph % (Auto) 35.7 % [place] % (Auto) 7.9 % Eos % (Auto) 1.0 % Baso % (Auto) 1.0 % Neut # (Auto) 2.61 (1.8-7.7) 10^3/u L Lymph # (Auto) 1.7 (0.8-4.8) 10^3/u L [place] # (Auto) 0.4 (0.2-0.9) 10^3/u L Eos # (Auto) 0.1 (0.0-0.8) 10^3/u L Baso # (Auto) 0.1 (0.0-0.1) 10^3/u L Nucleated RBC % (a uto) 0 % Nucleated RBCs # 0.0 /100WBC PT 12.80 (12.1-14.9) SECO NDS INR 0.93 (0.8-1.2) APTT 27.8 (23.9-36.7) SECO NDS Sodium 134 L (136-145) mmol/L Potassium 3.8 (3.5-5.1) mmol/L Chloride 96 L (98-107) mmol/L Carbon Dioxide 23 (22-29) mmol/L Anion Gap 18.8 (5-19) BUN 9 (6-20) mg/dL Creatinine 0.7 (0.5-0.9) mg/dL GFR Calculation 87.5 L (90-130) mL/min Glucose 93 (65-115) mg/dL Calculated Osmolal ity 276 L (285-295) mOsm/k g Calcium 8.7 (8.5-10.5) mg/dL Total Bilirubin 0.3 (0.15-1.2) mg/dL AST 14 (0-32) U/L ALT 11 (0-33) U/L Alkaline Phosphata se 61 (35-105) IU/L Troponin T Baselin e (0-10) ng/L NT-Pro-B Natriuret Pep 140 H (0-125) pg/mL Total Protein 6.9 (6.6-8.7) g/dL Albumin 4.6 (3.5-5.2) g/dL Globulin 2.3 (1.3-4.6) g/dL Urine Color (Yellow) Urine Appearance (CLEAR) Urine pH (5-7) Ur Specific Gravit y (1.005-1.030) Urine Protein (Negative) Urine Glucose (UA) (Normal) Urine Ketones (Negative) Urine Blood (Negative) Urine Nitrate (Negative) Urine Bilirubin (Negative) Urine Urobilinogen (Negative) mg/dL Ur Leukocyte Estella ase (Negative) 02/26/21 02/26/21 Range/Units 11:36 13:05 WBC (4.0-10.0) 10^3/ uL RBC (4.1-5.3) 10^6/u L Hgb (11.5-15.3) g/dL Hct (37.0-47.0) % MCV (81-99) fL MCH (28.0-34.0) pg MCHC (30.0-36.0) g/dL RDW (12.1-15.1) % Plt Count (130-400) 10^3/c mm MPV (7.4-10.4) fL Neut % (Auto) % Lymph % (Auto) % [place] % (Auto) % Eos % (Auto) % Baso % (Auto) % Neut # (Auto) (1.8-7.7) 10^3/u L Lymph # (Auto) (0.8-4.8) 10^3/u L [place] # (Auto) (0.2-0.9) 10^3/u L Eos # (Auto) (0.0-0.8) 10^3/u L Baso # (Auto) (0.0-0.1) 10^3/u L Nucleated RBC % (a uto) % Nucleated RBCs # /100WBC PT (12.1-14.9) SECO NDS INR (0.8-1.2) APTT (23.9-36.7) SECO NDS Sodium (136-145) mmol/L Potassium (3.5-5.1) mmol/L Chloride (98-107) mmol/L Carbon Dioxide (22-29) mmol/L Anion Gap (5-19) BUN (6-20) mg/dL Creatinine (0.5-0.9) mg/dL GFR Calculation (90-130) mL/min Glucose (65-115) mg/dL Calculated Osmolal ity (285-295) mOsm/k g Calcium (8.5-10.5) mg/dL Total Bilirubin (0.15-1.2) mg/dL AST (0-32) U/L ALT (0-33) U/L Alkaline Phosphata se (35-105) IU/L Troponin T Baselin e 6 (0-10) ng/L NT-Pro-B Natriuret Pep (0-125) pg/mL Total Protein (6.6-8.7) g/dL Albumin (3.5-5.2) g/dL Globulin (1.3-4.6) g/dL Urine Color Colorless (Yellow) Urine Appearance Clear (CLEAR) Urine pH 5 (5-7) Ur Specific Gravit y 1.005 (1.005-1.030) Urine Protein Neg (Negative) Urine Glucose (UA) Norm (Normal) Urine Ketones Negative (Negative) Urine Blood Neg (Negative) Urine Nitrate Negative (Negative) Urine Bilirubin Neg (Negative) Urine Urobilinogen Norm (Negative) mg/dL Ur Leukocyte Estella ase Negative (Negative) Imaging Data^: CXR: Attestation: I personally reviewed and interpreted this imaging study as follows: Radiologist's impression: IMPRESSION: Hyperinflation, without acute airspace or pleural disease. EKG Data^: EKG 1: Attestation: I personally reviewed and interpreted this EKG as follows: EKG interpretation date: 02/26/21 EKG interpretation time: 11:40 Prior EKG tracings: available for review Interpretation: Sinus bradycardia with nonspecific EKG changes heart rate 52. Computer generated interpretation: Chest X-Ray 02/26/21 11:20 IMPRESSION: Hyperinflation, without acute airspace or pleural disease. Discharge Plan Discharge Patient Disposition: Home Clinical Impression: Bradycardia, sinus, Dizziness Condition: Stable Prescriptions: No Action lisinopril 5 mg tablet 5 mg PO DAILY@0900 RF: 0 albuterol sulfate 90 mcg/actuation aerosol powdr breath activated 2 inh INHALATION Q6H PRN (Reason: Shortness Of Breath) RF: 0 citalopram [Celexa] 20 mg tablet 20 mg PO DAILY@0900 RF: 0 atorvastatin 20 mg tablet 20 mg PO DAILY@2200 RF: 0 magnesium oxide 500 mg tablet 500 mg PO DAILY@0900 RF: 0 gabapentin 600 mg tablet 600 mg PO Q6H PRN (Reason: chronic pain) 30 Days Qty: 120 RF: 0 furosemide 40 mg Tablet 40 mg PO DAILY PRN (Reason: Weight Gain) RF: 0 ibuprofen 200 mg Tablet 200 - 400 mg PO Q6H PRN (Reason: Pain) RF: 0 Symbicort 2 puff inhalation BID RF: 0 potassium 1 tab PO DAILY PRN (Reason: WITH LASIX) RF: 0 meloxicam 15 mg tablet 15 mg PO DAILY@0900 RF: 0 Discharge Orders: Discharge ED (Routine); Ordered 02/26/21 Ordered By: Amol Ward Referrals: Matias Nunez DO [Primary Care Provider] - Petar Baird M.D [Physician] - Discharge Diet: Advance as tolerated Discharge Activity: Increase activity as tolerated Patient Instructions: Opioid Safety Activity Restrictions/Additional Instructions: Be careful going from lying to sitting to standing position. Understanding run the risk for falls if you get profoundly dizzy. Follow-up with cardiology Dr. Baird as an outpatient. We will have case management schedule an exercise stress test to make arrangements for you to get your Holter monitor as instructed. Reduce your gabapentin from 600 mg 4 times a day down to 3 times a day. This medication can cause low blood pressure and bradycardic heart rhythm. If symptoms fail to improve or worsen return to the emergency department. Coding Level of Care Code ED Property Administrator for Barber Fwd Exam Comprehensive
[2021-02-26 11:27] VITALS: BP 131/74; PULSE 60; RESP 18; TEMP 36.9; O2SAT 99; BMI 26.9
[2021-02-26 11:54] LABS: Basophils # 0.1 10^3/uL (0.0-0.1); Eosinophils # 0.1 10^3/uL (0.0-0.8); Hematocrit 41.1 % (37.0-47.0); Hemoglobin 13.1 g/dL (11.5-15.3); Lymphocytes # 1.7 10^3/uL (0.8-4.8); Lymphocytes % 35.7 %; Mean Corpuscular HGB Conc 31.9 g/dL (30.0-36.0); Mean Corpuscular Hemoglobin 30.3 pg (28.0-34.0); Mean Corpuscular Volume 95.1 fL (81-99); Mean Platelet Volume 12.1 fL (7.4-10.4); Monocytes # 0.4 10^3/uL (0.2-0.9); Monocytes % 7.9 %; Neutrophils # 2.61 10^3/uL (1.8-7.7); Neutrophils % 54.2 %; Nucleated Red Blood Cells % 0 %; Platelet Count 235 10^3/cmm (130-400); Red Blood Count 4.32 10^6/uL (4.1-5.3); White Blood Count 4.8 10^3/uL (4.0-10.0)
[2021-02-26 11:57] LABS: INR 0.93 (0.8-1.2)
[2021-02-26 11:58] LABS: Partial Thromboplastin Time 27.8 SECONDS (23.9-36.7)
[2021-02-26 12:04] LABS: Troponin(5th) Baseline 6 ng/L (0-10)
[2021-02-26 12:12] LABS: Alanine Aminotransferase 11 U/L (0-33); Albumin Level 4.6 g/dL (3.5-5.2); Alkaline Phosphatase 61 IU/L (35-105); Anion Gap 18.8 (5-19); Aspartate Amino Transferase 14 U/L (0-32); Blood Urea Nitrogen 9 mg/dL (6-20); Calcium 8.7 mg/dL (8.5-10.5); Carbon Dioxide 23 mmol/L (22-29); Chloride 96 mmol/L (98-107); Globulin 2.3 g/dL (1.3-4.6); Glomerular Filtration Rate 87.5 mL/min (90-130); Glucose 93 mg/dL (65-115); NT Pro B Type Natriuretic Pept 140 pg/mL (0-125); Osmolality Calculated 276 mOsm/kg (285-295); Potassium 3.8 mmol/L (3.5-5.1); Sodium 134 mmol/L (136-145); Total Bilirubin 0.3 mg/dL (0.15-1.2); Total Protein 6.9 g/dL (6.6-8.7)
[2021-02-26 13:09] LABS: Add Urine Microscopic? NO; Charge for UA Resulting for Rev
[2021-02-26 13:16] LABS: Bilirubin Urine Neg (Negative); Blood Urine Neg (Negative); Glucose Urine UA Norm (Normal); Ketones Urine Negative (Negative); Leukocyte Esterase Urine Negative (Negative); Nitrate Urine Negative (Negative); Protein Urine Neg (Negative); Specific Gravity, Urine 1.005 (1.005-1.030); Urine Appearance Clear (CLEAR); Urine Color Colorless (Yellow); Urobilinogen Urine Norm (Negative); pH Urine 5 (5-7)
[2021-02-26 13:17] VITALS: BP 123/68; PULSE 48; RESP 18; O2SAT 99
--- NOTE | 2021-02-26 13:21 | ECG_ITS ---
[facility] Test Date: 2021-02-26 Pat Name: Janel Mesa Department: Room: Gender: Female Call Worker: : 1965 Requested By: Amol Ward Order Number: [id number] Arroyo MD: Petar Baird M.D. Measurements Intervals [place] Rate: 52 P: 35 IA: 142 QRS: 60 QRSD: 85 T: 40 QT: 420 QTc: 391 Interpretive Statements SINUS BRADYCARDIA SEPTAL MYOCARDIAL INFARCTION [40+ ms Q WAVE IN V1/V2], PROBABLY OLD Compared to ECG 02/17/2021 18:16:39 No significant changes Electronically Signed On 02-26-2021 22:15:31 CDT by Petar Baird M.D. [id number] f
[2021-02-26 13:44] LABS: Amphetamines Screen Urine Negative (Negative); Barbiturates Screen Urine Negative (Negative); Benzodiazepines Screen Urine Negative (Negative); Cocaine Screen Urine Negative (Negative); Opiate Screen Urine Positive (Negative); PCP Screen Urine Negative (Negative); THC Screen Urine Positive (Negative)
[2021-02-26 13:45] VITALS: BP 104/63; PULSE 49; RESP 18; O2SAT 99
--- NOTE | 2021-02-26 13:52 | PC.NURSE ---
1 liter of fluids given by ems
--- NOTE | 2021-03-01 14:02 | DCPLANNER ---
building rental manager had message to schedule an out patient stress test and a holter monitor. building rental manager faxed signed order to centralized scheduling for the out patient stress test. building rental manager faxed signed order [facility] for the 48 hour halter monitor. building rental manager will call for appointment information.
--- NOTE | 2021-03-03 10:54 | DCPLANNER ---
insurance agency sales manager worked with patient on a previous visit, and had ordered a 21 day event monitor for patient. Patient had an appointment for that on 03.02.21 at [facility] and attended that appointment. At this visit, the ER physician had ordered a 48 hour halter monitor, after seeing patient had an appointment for the 21 day event monitor, physician wanted to cancel the halter monitor. insurance agency sales manager called [facility] and cancelled the 48 hour halter monitor.
--- NOTE | 2021-03-09 11:44 | DCPLANNER ---
Patient has a follow up appointment scheduled for Saturday, February at 1:00 for an outpatient stress test.
--- NOTE | 2021-04-20 07:21 | DCPLANNER ---
Patient had an outpatient stress test scheduled for 03.20.21 - patient did attend.
== END 2021-02-26 13:55 | disposition home or self-care (01) ==
PROVIDERS: Emergency Provider Emergency Medicine; PCP Internal Medicine
DX: R42 Dizziness and giddiness (principal); R00.1 Bradycardia, unspecified; Z79.899 Other long term (current) drug therapy
CPT/HCPCS: 71045; 80053; 80306; 81003; 83880; 84484; 85025; 85610; 85730; 93005; 99283

== ENCOUNTER 2021-02-27 16:21 | Outpatient (CLI) | payer MEDICARE, SELFPAY ==
--- NOTE | 2021-02-27 16:45 | MR_ITS ---
WS: [id number] MRI RIGHT KNEE HISTORY: M17.11 - Unilateral primary osteoarthritis, right knee COMPARISON: Radiograph 01/23/2021 Anterior cruciate ligament: Intact. Posterior cruciate ligament: Intact. Medial collateral ligament: Intact. Posterior lateral corner structures: Intact. Medial menisci: Intact. Normal signal, size and shape. Lateral meniscus: Intact. Normal signal, size and shape. Extensor mechanism: Distal quadriceps tendon and patellar tendons are intact. Fluid and soft tissue: Very small suprapatellar joint effusion. No Lassiter's cyst. Osseous and articular structures: Patellofemoral compartment: Normal. Medial compartment: Very minimal narrowing of the medial compartment. There are small superficial def ects along the weightbearing surface of the femoral condyle and tibial plateau. No subchondral edema. There is a small subchondral cyst at the base of the tibial spine. Lateral compartment: Very mild superficial fissuring of the cartilage. Full thickness cartilaginous d efect with subchondral edema involving the posterior, nonweightbearing surface lateral femoral condyl e. MR/MR knee RT wo con* [id number] IMPRESSION: 1. Mild medial compartment narrowing with small superficial cartilaginous defe cts and fissuring. No subchondral edema. 2. No meniscal tear. 3. Very small joint effusion. 4. Focal osteochondral defect, nonweightbearing surface posterior lateral femo ral condyle.
== END 2021-02-27 16:22 | disposition home or self-care (01) ==
LOC: RADSHAW 16:23
PROVIDERS: PCP Internal Medicine; Visit Provider Specialist
DX: M17.11 Unilateral primary osteoarthritis, right knee (principal); M25.461 Effusion, right knee
CPT/HCPCS: 73721

== ENCOUNTER 2021-03-20 07:23 | Outpatient (CLI) | payer MEDICARE, SELFPAY ==
--- NOTE | 2021-03-20 07:31 | ECG_ITS ---
[facility] Test Date: 2021-03-20 Pat Name: Janel Mesa Department: Room: Gender: Female Lock Installer: Sheila Tellez : 1965 Requested By: Matias Zelaya Order Number: [id number] Cruz MD: Petar Baird M.D. Interpretive Statements NAME OF STUDY: TREADMILL STRESS TEST INDICATION: [Chest Pain, ] EXERCISE DATA: The patient was exercised by Willem protocol. Baseline heart rate was 61 beats per minute. Baseline blood pressure was 111/69 millimeters of mercury. Target heart rate was 141 beats per minute. Maximum heart rate achieved was 147, which was 104% of the target heart rate. Maximum blood pressure was 208/73 millimeters of mercury. Total exercise time was 9 minutes and 19 seconds. Maximum METs achieved was 13.5, maximum VO2 was 47.3. The reason for ending the test was completion of the protocol. The patient complained of shortness of breath during the stress test, which then resolved at the end of the test. ELECTROCARDIOGRAM: BASELINE: Showed sinus rhythm, normal axis, no significant ST-T changes at the baseline noted. [] EXERCISE: At the peak exercise level, [] No significant ST-T changes suggestive of ischemia noted. [] RECOVERY: During the recovery period, heart rate dropped appropriately. No significant ST-T changes in the recovery suggestive of ischemia noted. [] CONCLUSION: 1. Exercise capacity excellent. 2. Heart rate response was appropriate. 3. Blood pressure response was appropriate. 4. Symptoms not suggestive of ischemia. 5. Stress test was not suggestive of ischemia. Electronically Signed On 04-18-2021 15:24:03 CDT by Petar Baird M.D. [id number]
[2021-03-20 07:32] VITALS: BMI 26.9
[2021-03-20 07:50] VITALS: BP 168/68; PULSE 90
== END 2021-03-20 07:24 | disposition home or self-care (01) ==
LOC: CDL 07:27
PROVIDERS: PCP Internal Medicine; Visit Provider Emergency Medicine
DX: R07.9 Chest pain, unspecified (principal)
CPT/HCPCS: 93017

== ENCOUNTER 2021-05-01 08:48 | Outpatient (CLI) | payer MEDICARE, SELFPAY ==
--- NOTE | 2021-05-01 09:01 | IR_ITS ---
WS: [id number] LUMBAR MYELOGRAM HISTORY: DEGENERATIVE DISC DISEASE, LUMBAR COMPARISON: None available. FLUOROSCOPY TIME: 0.6 minutes. Procedure, risks and complications were explained to the patient. Risks including bleeding, infection , headaches, allergic reaction and seizures. Consent has been obtained. With the patient in prone position the skin over the lumbar region is cleansed with ChloraPrep and an esthetized with lidocaine. 22-gauge spinal needle is inserted into the thecal sac at the appropriate level determined by fluoroscopy. Omnipaque 240; 12 ml is injected slowly under fluoroscopy with no co mplications. Needle bevel is perpendicular to the longitudinal fibers of the dura. Stylet is reinsert ed prior to removal of the needle. Patient tolerated the procedure well. Patient will proceed to CT f or further evaluation. Posterior lumbar fusion from L4 to S1. Hardware is intact. No lucency around the pedicle screws. Thec al sac is widely patent with very slight narrowing at L3-4. Large posterior laminectomy defects at L4 and L5. No fractures. Mild atherosclerosis aorta. IR/[place] [id number] IMPRESSION: 1. Uncomplicated lumbar myelogram. Please refer to following report of the lum bar spine CT. 2. Prior posterior fusion from L4 to S1 is intact. No loosening or fracture. 3. Very mild narrowing at the thecal sac at L3-4.
--- NOTE | 2021-05-01 09:01 | CT_ITS ---
WS: [id number] CT MYELOGRAM LUMBAR SPINE HISTORY: DEGENERATIVE DISC DISEASE, LUMBAR TECHNIQUE: Contiguous 2.5 mm axial imaging performed from T12 through the mid sacral level. Bone and soft tissue windows reviewed. Sagittal and coronal reformats are submitted and reviewed. DLP: 1970.[address] scans at [facility] use at least one of these dose optimization techniques: automat ed exposure control; mA and/or kV adjustment per patient size (includes targeted exams where dose is matched to clinical indication); or iterative reconstruction. COMPARISON: 02/10/2020, MRI 06/17/2020. Good opacification of the thecal sac. Posterior lumbar fusion extends from L4 to S1 bilaterally. Inte rbody spacer at L4-5 with mild disc space narrowing. Hardware is intact. No loosening around the hard robb. No fractures. L1-L2: Normal. L2-L3: Mild facet joint arthritis. No disc protrusions. L3-L4: Moderate annular disc bulging contacting the ventral thecal sac with mild deformity. Mild liga mentum flavum hypertrophy and facet arthritis. Mild central and LEFT foraminal stenosis. Moderate christiano nosis with increased soft tissue in the RIGHT foramen. Suspect there is probably a disc protrusion in the RIGHT foramen contacting the L3 nerve root. Similar to the MRI. L4-L5: Mild annular disc bulging. Mild bilateral foraminal stenosis. Large posterior laminectomy defe ct. L5-S1: Broad-based disc bulging contacting the ventral thecal sac. There is a shallow LEFT paracentra l disc protrusion but no displacement of the S1 nerve root. Mild foraminal stenosis. Large posterior laminectomy defect. Atherosclerosis aorta. RIGHT adnexal cyst measures 4.1 x 3.0 cm. This can be further evaluated by ult abel if clinically thought necessary. CT/CT lumbar spine w con [id number] IMPRESSION: 1. Status post posterior lumbar fusion from L4 to S1 bilaterally with no compl ications. 2. Increased soft tissue in the RIGHT foramen at L3-4 with at least moderate s tenosis. Suspect a focal disc protrusion contacting the L3 nerve root. Very sim ilar to the MRI of 06/17/2020. 3. LEFT paracentral disc protrusion at L5-S1 with no contact on the nerve root s. 4. Mild central LEFT foraminal stenosis at L3-4.
[2021-05-01] MEDS: iohexol 240 mg/mL 50 mL Btl INTRATHECA (09:56)
== END 2021-05-01 08:49 | disposition home or self-care (01) ==
PROVIDERS: PCP Internal Medicine; Visit Provider General Practice
DX: M51.36 Other intervertebral disc degeneration, lumbar region (principal); M43.27 Fusion of spine, lumbosacral region
CPT/HCPCS: 62304; 72132; Q9966

== ENCOUNTER 2021-06-29 14:06 | Outpatient (CLI) | payer MEDICARE, SELFPAY ==
--- NOTE | 2021-06-29 14:12 | MM_ITS ---
WS: [id number] BILATERAL DIGITAL SCREENING MAMMOGRAPHY WITH CAD CLINICAL INFORMATION: SCREENING HISTORY: Screening mammogram. No current complaints. COMPARISON: March 10, 2020 TECHNIQUE: Bilateral CC and MLO views. FINDINGS: Scattered fibroglandular densities bilaterally. No suspicious focal mass, asymmetry, calcifications, or architectural distortion. No evidence of malignancy. MM/[place] [id number] IMPRESSION: BI-RADS: 1-Negative FOLLOW UP: 1 Year Follow-up Recommend return to annual screening mammography.
--- NOTE | 2021-06-29 14:46 | XR_ITS ---
WS: [id number] DEXA (DUAL ENERGY X-RAY ABSORPTIOMETRY) Bone mineral density was performed using a [employer] machine. HISTORY: POST MENOPAUSAL COMPARISON: None available. Left forearm BMD: 0.887 g/cm2. T score: 0.1 Z score: 0.4 Total hip BMD: Left: 1.062 g/cm2. T score: 0.4 Z score: 0.9 Right: 1.074 g/cm2. T score: 0.5 Z score: 1.0 10 year probability of a major osteoporotic fracture is 5%. XR/XR DEXA axial skeleton* [id number] IMPRESSION: NORMAL BONE MINERAL DENSITY based upon the WHO classification for females.
== END 2021-06-29 14:07 | disposition home or self-care (01) ==
PROVIDERS: PCP Internal Medicine; Visit Provider Physician Assistant
DX: Z12.31 Encounter for screening mammogram for malignant neoplasm of breast (principal); Z78.0 Asymptomatic menopausal state
CPT/HCPCS: 77067; 77080

== ENCOUNTER 2021-11-21 13:34 | Observation (INO) | payer MEDICARE, SELFPAY ==
[2021-11-21] VITALS (10 sets, daily range): BP systolic 90–143; BP diastolic 56–94; PULSE 62–93; RESP 16–22; TEMP 36.4–37.3; O2SAT 95–100; BMI 27.4
--- NOTE | 2021-11-21 14:09 | CT_ITS ---
WS: [id number] CT ABDOMEN PELVIS TECHNIQUE: Contrast-enhanced CT of the abdomen and pelvis with coronal and sagittal reformatted image s. CLINICAL INFORMATION: abd pain COMPARISON: CT abdomen pelvis 9 DLP: 1337.[address] scans at [facility] use at least one of these dose optimization techniques: automated e xposure control; mA and/or kV adjustment per patient size (includes targeted exams where dose is matc hed to clinical indication); or iterative reconstruction. FINDINGS: Recent colonoscopy with polypectomies. No evidence of free air or perforation. Mild induration and th ickening involving the colon more prominent at the hepatic flexure suspicious for mild colitis post colonoscopy. Distended transverse colon with air-fluid levels. Small amount of free fluid in the pelv is. Sigmoid diverticulosis. No evidence of acute diverticulitis. Additional area of mild wall thicken ing and mucosal enhancement in the LEFT lower quadrant descending colon likely in the areas of prior polypectomies No evidence of small bowel obstruction. Diffuse fatty infiltration of the liver. Normal gallbladder. Normal portal vein and splenic vein. Normal spleen. Submucosal enhancement involving the stomach and duodenal compatible with gastroduodenitis. Small esophageal hiatal hernia. Lung bases are well aerate d. Celiac and SMA are patent. Normal spleen. Normal pancreatic parenchymal enhancement. Adrenal glands are normal. Normal renal parenchymal enhanc ement. No hydronephrosis. Normal caliber abdominal aorta. Mild aortic calcification. Postoperative ch anges pedicle screw fixation L4-S1 with interbody fusion grafts L4-L5. Associated laminectomy defects . Peripheral enhancing LEFT ovarian cyst measuring 3.5 x 3.3 x 3.6 p.m. AP by transverse by craniocauda l. This can be followed up with ultrasound. Tiny fat-containing abdominal hernia. CT/CT abdomen pelvis w con* [id number] IMPRESSION: 1. No evidence of free air or perforation. 2. Small amount of free fluid in the pelvis. Prominent LEFT ovarian cyst with peripheral enhancement measuring 3.5 x 3.3 x 3.6 p.m. AP by transverse by crani ocaudal. Recommend follow-up with ultrasound. 3. A few areas of circumferential thickening and submucosal enhancement suspic ious for colitis involving the hepatic flexure and LEFT descending colon. 4. Mild adynamic ileus involving the transverse colon with air-fluid levels. 5. Sigmoid diverticulosis. No evidence of acute diverticulitis. 6. Small esophageal hiatal hernia with gastroduodenitis. Preliminary discussed with Dr. Borrero at 3:30 PM
--- NOTE | 2021-11-21 14:09 | XRR_ITS ---
PROCEDURE INFORMATION: Exam: XR Chest Exam date and time: 11/21/2021 2:09 PM Age: 55 years old Clinical indication: Cough and dyspnea; Additional info: Dyspnea/cough TECHNIQUE: Imaging protocol: XR of the chest. Views: 1 view. COMPARISON: CR XR chest 1V portable [id number] 02/26/2021 11:24 AM FINDINGS: Lungs: Unremarkable. No consolidation. Pleural spaces: Unremarkable. No pleural effusion. No pneumothorax. Heart/Mediastinum: Unremarkable. No cardiomegaly. Bones/joints: Postsurgical hardware is seen in the cervical spine. Other findings: Similar findings seen comparing to prior XR/XR chest 1V portable [id number] IMPRESSION: 1. No acute findings. 2. Stable surgical hardware cervical spine
--- NOTE | 2021-11-21 14:10 | ECG_ITS ---
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 Measurements Intervals [place] Rate: 65 P: 74 PA: 138 QRS: 80 QRSD: 80 T: 70 QT: 367 QTc: 383 Interpretive Statements SINUS RHYTHM LOW QRS VOLTAGE IN PRECORDIAL LEADS [QRS DEFLECTION < 1.0 mV IN CHEST LEADS] ANTEROSEPTAL MYOCARDIAL INFARCTION , OF INDETERMINATE AGE [40+ ms Q WAVE IN V1-V4] Compared to ECG 02/26/2021 11:40:52 Low QRS voltage now present Sinus bradycardia no longer present Myocardial infarct finding still present Electronically Signed On 11-22-2021 5:37:03 DIRECTOR OF EMAIL MARKETING by Christine Bhatia M.D. [id number]
[2021-11-21 14:25] LABS: Basophils % 0.3 %; Eosinophils % 0.4 %; Hematocrit 48.9 % (37.0-47.0); Hemoglobin 15.6 g/dL (11.5-15.3); Lymphocytes # 1.1 10^3/uL (0.8-4.8); Lymphocytes % 11.7 %; Mean Corpuscular HGB Conc 31.9 g/dL (30.0-36.0); Mean Corpuscular Hemoglobin 29.5 pg (28.0-34.0); Mean Corpuscular Volume 92.4 fl (81-99); Mean Platelet Volume 10.8 fL (7.4-10.4); Monocytes # 0.3 10^3/uL (0.2-0.9); Monocytes % 2.6 %; Neutrophils # 8.08 10^3/uL (1.8-7.7); Neutrophils % 84.8 %; Nucleated Red Blood Cells % 0 %; Platelet Count 266 10^3/cmm (130-400); Red Blood Count 5.29 10^6/uL (4.1-5.3); Red Cell Distribution Width 13.9 % (12.1-15.1); White Blood Count 9.5 10^3/uL (4.0-10.0)
--- NOTE | 2021-11-21 14:28 | W.ED.ABDPA2 ---
HPI - Abdominal Pain General: Chief Complaint: Abdominal Pain Stated Complaint: Stomach pain, feeling of passing out Time Seen by Provider: 11/21/21 13:53 Source: patient Mode of arrival: ambulatory Limitations: no limitations History of Present Illness: 55-year-old female presents to the emergency room with complaints of abdominal pain. Patient has severe abdominal pain that began overnight. Yesterday she had an EGD had a large polyp removed. Initially she seemed to be doing well then began to develop nausea and vomiting and has progressively worsening abdominal discomfort and contacted Dr. Orona directed her here. She is not had any significant hematochezia.Complaining of left lower quadrant abdominal pain. She had multiple polyps removed during the colonoscopy. According to Dr. Lamar notes that she had been using large amounts of NSAIDs. MD elicited complaint: abdominal pain Pertinent past history: other (colonosocpy yesterday w polypectomy) Onset (ago): hour(s) Pain Consistency: constant Location: LLQ Severity: severe Quality: cramping Radiation: RUQ, LLQ, RLQ and epigastric Exacerbating factors: eating, movement and other (Exam) Relieving factors: rest (Remaining still in position) Associated Symptoms: Reports bloating, GI cramping, dyspepsia, nausea, poor appetite and vomiting; Denies anorexia, belching, change in bowel habits, change in stool character, chills, coffee ground emesis, constipation, diarrhea, dysuria, excessive flatus, fever(s), heartburn, hematochezia, hematuria, hematemesis, fecal incontinence, loose stools and melena Review of Systems Const: Denies: fever(s) or chills ENMT: Denies: throat pain, ear or mastoid pain, nasal discharge or nasal congestion Card: Denies: chest pain, edema, dyspnea on exertion or orthopnea Resp: Denies: dyspnea, productive cough or non-productive cough GI: Reports: nausea, vomiting, bloating and GI cramping; Denies: hematemesis, coffee ground emesis, heartburn, diarrhea, constipation, belching, excessive flatus, fecal incontinence, change in bowel habits, change in stool character, hematochezia or melena : Denies: dysuria or hematuria Skin/Breast: Denies: rash or pruritus PFSH ED PFSH: Medical History Cervical post-laminectomy syndrome Chronic pain Colon polyps COPD (chronic obstructive pulmonary disease) Depression Diverticulosis GERD (gastroesophageal reflux disease) Hiatal hernia Hyperlipidemia 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 History of decompression of ulnar nerve (~2009) bilateral History of hysterectomy History of lumbar spinal fusion History of lumbar surgery (04/14/15) Dr. Espinosa, Right L5-S1 laminotomy/foraminotomy/partial facetectomy, reexploration. History of tubal ligation Family History Mother Heart disease Hypertension Kidney disease Sister Hypertension Social History Smoking and tobacco status: former smoker Second hand smoke exposure: No Alcohol intake: never Household members: spouse Marital status: Current occupational status: disabled History of recent travel: No Physical Exam Const: GENERAL APPEARANCE: cooperative ORIENTATION/CONSCIOUSNESS: Yes awake, Yes oriented to person, Yes oriented to place and Yes oriented to time HENMT: COMMON NORMALS: normocephalic, atraumatic and hearing grossly normal bilaterally HEAD & SCALP: normocephalic and atraumatic Neck/C-Spine: COMMON NORMALS: no JVD Resp: COMMON NORMALS: normal respiratory effort, No retractions, No use of accessory muscles and clear to auscultation bilaterally AUSCULTATION: clear to auscultation bilaterally Cardio: COMMON NORMALS: no JVD, regular rate, regular rhythm and No murmurs present (Cardio) RATE: regular rate RHYTHM: regular rhythm GI: COMMON NORMALS: No hepatosplenomegaly present INSPECTION: Yes abdominal distension (Mild) AUSCULTATION: Yes Hypoactive bowel sounds present PALPATION: Yes Tenderness to palpation present (GI) Details: LLQ, Yes Guarding due to palpation present (GI) and Yes No hepatosplenomegaly present : COMMON NORMALS: Yes no CVA tenderness BLADDER/KIDNEY EXAM: Yes no CVA tenderness Back/Pelvis: COMMON NORMALS: no CVA tenderness Extremity: COMMON NORMALS: normal to inspection, capillary refill normal, no clubbing, cyanosis or edema, no calf tenderness and no pedal edema Neuro: SENSORIUM/ORIENTATION: Yes oriented to person, Yes oriented to place and Yes oriented to time Skin: COMMON NORMALS: no rashes or lesions noted GENERAL SKIN EXAM: no rashes or lesions noted Course Vital Signs: Vital signs: Vital Signs Temperature 98.1 F 11/22/21 07:41 Pulse Rate 61 11/22/21 09:15 Respiratory Rate 16 11/22/21 09:15 Blood Pressure 110/63 11/22/21 07:41 Pulse Oximetry 96 11/22/21 09:15 MDM - Abdominal Pain Medical Decision Making Patient given IV fluids and pain medications after initial evaluation. Dr. Manning did instruct the patient come the emergency room Dr. Borrero came and seen patient and has written orders is planning to admit the patient for her abdominal pain and further evaluation. CT did not show any perforation. He is started on Zosyn. Medical Records I reviewed the patient's medical records. Lab Data I reviewed the patient's lab results. : 11/22/21 04:52 11/22/21 04:52 Labs/Radiology: Radiology Impressions Abdomen/Pelvis CT 11/21/21 14:09 IMPRESSION: 1. No evidence of free air or perforation. 2. Small amount of free fluid in the pelvis. Prominent LEFT ovarian cyst with peripheral enhancement measuring 3.5 x 3.3 x 3.6 p.m. AP by transverse by craniocaudal. Recommend follow-up with ultrasound. 3. A few areas of circumferential thickening and submucosal enhancement suspicious for colitis involving the hepatic flexure and LEFT descending colon. 4. Mild adynamic ileus involving the transverse colon with air-fluid levels. 5. Sigmoid diverticulosis. No evidence of acute diverticulitis. 6. Small esophageal hiatal hernia with gastroduodenitis. Preliminary discussed with Dr. Borrero at 3:30 PM Chest X-Ray 11/21/21 14:09 IMPRESSION: 1. No acute findings. 2. Stable surgical hardware cervical spine Laboratory Results WBC 9.5 10^3/uL (4.0-10.0) 11/21/21 14:14 RBC 5.29 10^6/uL (4.1-5.3) 11/21/21 14:14 Hgb 15.6 g/dL (11.5-15.3) H 11/21/21 14:14 Hct 48.9 % (37.0-47.0) H 11/21/21 14:14 MCV 92.4 fl (81-99) 11/21/21 14:14 MCH 29.5 pg (28.0-34.0) 11/21/21 14:14 MCHC 31.9 g/dL (30.0-36.0) 11/21/21 14:14 RDW 13.9 % (12.1-15.1) 11/21/21 14:14 Plt Count 266 10^3/cmm (130-400) 11/21/21 14:14 MPV 10.8 fL (7.4-10.4) H 11/21/21 14:14 Neut % (Auto) 84.8 % 11/21/21 14:14 Lymph % (Auto) 11.7 % 11/21/21 14:14 Howell % (Auto) 2.6 % 11/21/21 14:14 Eos % (Auto) 0.4 % 11/21/21 14:14 Baso % (Auto) 0.3 % 11/21/21 14:14 Neut # (Auto) 8.08 10^3/uL (1.8-7.7) H 11/21/21 14:14 Lymph # (Auto) 1.1 10^3/uL (0.8-4.8) 11/21/21 14:14 Howell # (Auto) 0.3 10^3/uL (0.2-0.9) 11/21/21 14:14 Eos # (Auto) 0.0 10^3/uL (0.0-0.8) 11/21/21 14:14 Baso # (Auto) 0.0 10^3/uL (0.0-0.1) 11/21/21 14:14 Nucleated RBC % (auto) 0 % 11/21/21 14:14 Nucleated RBCs # 0.0 /100WBC 11/21/21 14:14 Sodium 132 mmol/L (136-145) L 11/21/21 14:14 Potassium 4.3 mmol/L (3.5-5.1) 11/21/21 14:14 Chloride 94 mmol/L (98-107) L 11/21/21 14:14 Carbon Dioxide 27 mmol/L (22-29) 11/21/21 14:14 Anion Gap 15.3 (5-19) 11/21/21 14:14 BUN 12 mg/dL (6-20) 11/21/21 14:14 Creatinine 0.7 mg/dL (0.5-0.9) 11/21/21 14:14 GFR Calculation 87.5 mL/min (90-130) L 11/21/21 14:14 Glucose 121 mg/dL (65-115) H 11/21/21 14:14 Calculated Osmolality 275 mOsm/kg (285-295) L 11/21/21 14:14 Lactic Acid 1.6 mmol/L (0.5-2.2) 11/21/21 14:14 Calcium 8.9 mg/dL (8.5-10.5) 11/21/21 14:14 Magnesium 1.9 mg/dL (1.7-2.3) 11/21/21 14:14 Total Bilirubin 0.9 mg/dL (0.15-1.2) 11/21/21 14:14 AST 16 U/L (0-32) 11/21/21 14:14 ALT 20 U/L (0-33) 11/21/21 14:14 Alkaline Phosphatase 75 IU/L (35-105) 11/21/21 14:14 Total Protein 6.9 g/dL (6.6-8.7) 11/21/21 14:14 Albumin 4.4 g/dL (3.5-5.2) 11/21/21 14:14 Globulin 2.5 g/dL (1.3-4.6) 11/21/21 14:14 Lipase 24 U/L (13-60) 11/21/21 14:14 Discharge Plan Discharge Patient Disposition: Admitted As Inpatient Admit Provider: Shahram Borrero Clinical Impression: Left lower quadrant abdominal pain, NSAID long-term use Condition: Stable Discharge Orders: Discharge Order (Routine); Ordered 11/22/21 Ordered By: Shahram Borrero Coding Level of Care Code 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
[2021-11-21 14:37] LABS: Lactic Sepsis W/Reflex 1.6 mmol/L (0.5-2.2)
[2021-11-21 14:45] LABS: Alanine Aminotransferase 20 U/L (0-33); Albumin Level 4.4 g/dL (3.5-5.2); Alkaline Phosphatase 75 IU/L (35-105); Anion Gap 15.3 (5-19); Aspartate Amino Transferase 16 U/L (0-32); Blood Urea Nitrogen 12 mg/dL (6-20); Calcium 8.9 mg/dL (8.5-10.5); Carbon Dioxide 27 mmol/L (22-29); Chloride 94 mmol/L (98-107); Globulin 2.5 g/dL (1.3-4.6); Glomerular Filtration Rate 87.5 mL/min (90-130); Glucose 121 mg/dL (65-115); Lipase 24 U/L (13-60); Magnesium 1.9 mg/dL (1.7-2.3); Osmolality Calculated 275 mOsm/kg (285-295); Potassium 4.3 mmol/L (3.5-5.1); Sodium 132 mmol/L (136-145); Total Bilirubin 0.9 mg/dL (0.15-1.2); Total Protein 6.9 g/dL (6.6-8.7)
[2021-11-21] MEDS: iohexol 300 mg/mL 100 mL Btl IV (15:24)
[2021-11-21] MEDS: ondansetron 2 mg/ML SDV 2 mL 4 MG IVP (15:36)
[2021-11-21] MEDS: morphine 4 mg/mL SDV 1 mL 6 MG IVP (15:36)
[2021-11-21] MEDS: piperacillin-tazobactam 3.375 GM in sodium chloride 0.9% (plus) 50 ML IV ×2 (15:41→20:57)
--- NOTE | 2021-11-21 15:45 | PM.HP ---
Providers/Chief Complaint Primary Care Provider: Matias Nunez DO Chief Complaint: Stomach pain, feeling of passing out History of Present Illness Janel Mesa is a 55 year old female who underwent her first colonoscopy yesterday morning after having a positive Cologuard test and possible evidence of hematochezia. She was found to have 10 polyps in her colon, some of which in the descending colon were very sizable. Quite a bit of cautery had to be used to get these removed. The pathology is still pending. The patient was asymptomatic immediately following her colonoscopy. She says last night she was just feeling like she was having some gas pains. She ate a hamburger after her colonoscopy yesterday. This morning she said she was having a little bit more discomfort in the left lower quadrant of the abdomen. As the day progressed she said the pain was also in her epigastrium. She called her daughter over the her house and her daughter told me that she was laying on the floor in pain. The patient says she had laid down because she was in pain felt like I was going to pass out. I instructed them to come the emergency room. A CAT scan was performed which did not show any evidence of perforation, which is what I was mainly concerned about. The patient is a chronic pain patient, and said that she thought she could probably go home as long as we got her discomfort under control. I talked her into staying in the hospital overnight for observation and to make sure there were no worsening changes. Review of Systems General: Reports: 10 or more systems reviewed and unremarkable except in HPI and below Const: Denies: fever(s) GI: Reports: abdominal pain Medications/Allergies Home Medications Medication Instructions Recorded Confirmed Last Taken Type albuterol sulfate 90 mcg/actuation 2 inh INHALATION Q6H PRN 12/07/19 04/06/21 Unknown History breath activated powder inhaler atorvastatin 20 mg tablet 20 mg PO DAILY@2200 12/07/19 04/06/21 02/25/21 History citalopram 20 mg tablet (Celexa) 20 mg PO DAILY@0900 12/07/19 04/06/21 02/26/21 History lisinopril 5 mg tablet 5 mg PO DAILY@0900 12/07/19 04/06/21 02/26/21 History gabapentin 600 mg tablet 600 mg PO Q6H PRN 30 Days #120 tab 12/22/20 04/06/21 02/17/21 14:00 Rx magnesium oxide 500 mg tablet 500 mg PO DAILY@0900 12/22/20 04/06/21 02/26/21 History Symbicort 2 puff INHALATION BID 02/17/21 04/06/21 02/26/21 History furosemide 40 mg tablet 40 mg PO DAILY PRN 02/17/21 04/06/21 02/16/21 History ibuprofen 200 mg tablet 200 - 400 mg PO Q6H PRN 02/17/21 04/06/21 02/17/21 History meloxicam 15 mg tablet 15 mg PO DAILY@0900 02/17/21 04/06/21 02/25/21 History potassium 1 tab PO DAILY PRN 02/17/21 04/06/21 02/16/21 History Allergies Allergy/AdvReac Type Severity Reaction Status Date / Time No Known Allergies Allergy Verified 04/06/21 12:41 PFSH Acute PFSH: Medical History (Updated 11/21/21 @ 15:58 by Shahram Borrero MD) Cervical post-laminectomy syndrome Chronic pain Colon polyps COPD (chronic obstructive pulmonary disease) Depression Diverticulosis GERD (gastroesophageal reflux disease) Hiatal hernia 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 History of decompression of ulnar nerve (~2009) bilateral History of hysterectomy History of lumbar spinal fusion History of lumbar surgery (04/14/15) Dr. Espinosa, Right L5-S1 laminotomy/foraminotomy/partial facetectomy, reexploration. History of tubal ligation Family History Mother Heart disease Hypertension Kidney disease Sister Hypertension Social History Smoking and tobacco status: former smoker Second hand smoke exposure: No Alcohol intake: never Household members: spouse Marital status: Current occupational status: disabled History of recent travel: No Vitals/I&O/Wt Last Vital Signs Temp 97.5 F L 11/21/21 13:54 Pulse 77 11/21/21 15:43 Resp 22 H 11/21/21 15:43 BP 108/56 11/21/21 15:43 Pulse Ox 95 11/21/21 15:43 Weight last 48 hrs Weight 150 lb Physical Exam Narrative: The patient was encountered in her room in the emergency department. She is laying on her side and appears to not feel well but seems to be able the move around fairly easily. The pupils are equal. No carotid bruits are heard. The lungs are clear anteriorly. The heart is regular. The abdomen reveals bowel sounds and is soft but she has some mild/moderate tenderness in the left lower quadrant as well as in the epigastrium. The extremities reveal no edema. Neurologically the patient is grossly intact. Data : 11/21/21 14:14 11/21/21 14:14 Micro: Microbiology 11/21/21 14:14 Blood Culture - Preliminary Blood SPECIMEN COLLECTED CT Abd/Pel: Radiologist's impression: CT scan abdomen/pelvis three one 2021 IMPRESSION: ? 1.? No evidence of free air or perforation. 2.? Small amount of free fluid in the pelvis. Prominent LEFT ovarian cyst with peripheral enhancement measuring 3.5 x 3.3 x 3.6 p.m. AP by transverse by craniocaudal. Recommend follow-up with ultrasound. 3.? A few areas of circumferential thickening and submucosal enhancement suspicious for colitis involving the hepatic flexure and LEFT descending colon. 4.? Mild adynamic ileus involving the transverse colon with air-fluid levels. 5.? Sigmoid diverticulosis. No evidence of acute diverticulitis. 6.? Small esophageal hiatal hernia with gastroduodenitis. A&P Assessment and plan (1) Left lower quadrant abdominal pain: The patient just underwent multiple polypectomies yesterday during her first colonoscopy. Some of the polyps were quite sizable and quite a bit of electric current had been used to get these removed. Her CAT scan was reviewed with Dr. Cabrera in radiology. While the scan does not show any evidence of perforation, there may be some evidence of colitis or perhaps just changes from polypectomies. She also seems the have some possible evidence of gastritis/duodenitis. She does take NSAIDs on a regular basis for her chronic pain. I told the patient that I would like to watch her overnight just make sure things do not worsen, as this is somewhat unusual following colonoscopy even with polypectomies. She is a chronic pain patient so that makes things perhaps a little more difficult to interpret. She will be brought in for observation for pain management and laboratory studies and exam will be repeated tomorrow morning. In the interim, I am going keep her on a proton pump inhibitor twice daily and some antibiotics empirically in the event she is developing colitis or any infectious issue following her polypectomies. Status: Acute (2) Epigastric abdominal pain: The patient is a longtime NSAID user. I will plan on her probably being discharged on an oral H2 shaheen or perhaps even a proton pump inhibitor. Status: Acute (3) NSAID long-term use: See above. Status: Acute Attestations Medical Necessity Statement*: Based on my medical assessment, presenting symptoms and consideration of the scope of surgical therapy, I expect this patient will require treatment in the hospital for a period of time spanning less than 2 midnights, and is therefore being placed in observation status. 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
[2021-11-21] MEDS: HYDROmorphone 1 mg/mL INJ 1 mL IVP (17:57)
[2021-11-21 18:29] LABS: Add Urine Microscopic? NO; Charge for UA Resulting for Rev
--- NOTE | 2021-11-21 18:30 | PC.NURSE ---
Patient arrived on floor at 1710. Admission and assessment done. Patient oriented to room. Urine sample sent. Pain medications given. Belongings accounted for. Will continue to monitor and give report to night nurse.
[2021-11-21 18:32] LABS: Bilirubin Urine Neg (Negative); Blood Urine Neg (Negative); Glucose Urine UA Norm (Normal); Ketones Urine Negative (Negative); Leukocyte Esterase Urine Negative (Negative); Nitrate Urine Negative (Negative); Protein Urine Neg (Negative); Urine Appearance Clear (CLEAR); Urine Color Yellow (Yellow); Urobilinogen Urine Neg (Negative); pH Urine 7 (5-7)
[2021-11-21] MEDS: dextrose 5%-sod chloride 0.9% 1,000 ML 100 ML IV (18:44)
[2021-11-21] MEDS: pantoprazole 40 mg SDV IVP (20:53)
[2021-11-21] MEDS: metroNIDAZOLE 500 MG Tablet PO (20:53)
[2021-11-21] MEDS: HYDROcodone-acetaminophen 5-325 mg Tablet PO (20:54)
[2021-11-21] MEDS: gabapentin 300 mg Capsule 600 MG PO (20:56)
[2021-11-22 00:32] VITALS: BP 100/66; PULSE 70; RESP 17; O2SAT 96
[2021-11-22] MEDS: ketorolac 30 mg/mL INJ IVP (00:50)
[2021-11-22 04:00] VITALS: BP 98/70; PULSE 70; RESP 18; TEMP 36.7; O2SAT 94
[2021-11-22] MEDS: piperacillin-tazobactam 3.375 GM in sodium chloride 0.9% (plus) 50 ML IV (05:13)
[2021-11-22 05:18] LABS: Hematocrit 39.4 % (37.0-47.0); Hemoglobin 12.5 g/dL (11.5-15.3); Mean Corpuscular HGB Conc 31.7 g/dL (30.0-36.0); Mean Corpuscular Hemoglobin 29.8 pg (28.0-34.0); Mean Corpuscular Volume 93.8 fl (81-99); Mean Platelet Volume 11.4 fL (7.4-10.4); Platelet Count 222 10^3/cmm (130-400); White Blood Count 13.8 10^3/uL (4.0-10.0)
[2021-11-22] MEDS: gabapentin 300 mg Capsule 600 MG PO (05:18)
[2021-11-22] MEDS: HYDROcodone-acetaminophen 5-325 mg Tablet PO (05:18)
[2021-11-22 05:44] LABS: Slide Review Slide Review Perform
[2021-11-22 05:45] LABS: Absolute Neutrophil 12.3 10^3/cmm (1.4-6.5); Absolute Segmented Neutrophil 9.7 10/cmm (1.6-7.1); Band Neutrophils Absolute 2.6 10^3/cmm (0.0-1.2); Eosinophils 0 %; Lymphocytes 7 %; Monocytes Absolute 0.6 10^3/cmm (0.1-0.6); Platelet Estimate Normal (Normal); Segmented Neutrophils 70 %; Total Cells Counted 100 (0-100)
[2021-11-22 05:50] LABS: Blood Urea Nitrogen 10 mg/dL (6-20); Calcium 8.7 mg/dL (8.5-10.5); Carbon Dioxide 23 mmol/L (22-29); Chloride 100 mmol/L (98-107); Glomerular Filtration Rate 129.1 mL/min (90-130); Glucose 132 mg/dL (65-115); Osmolality Calculated 279 mOsm/kg (285-295); Sodium 134 mmol/L (136-145)
[2021-11-22] MEDS: dextrose 5%-sod chloride 0.9% 1,000 ML 100 ML IV (05:50)
[2021-11-22 05:52] LABS: Anion Gap 14.9 (5-19); Potassium 3.9 mmol/L (3.5-5.1)
[2021-11-22 06:00] VITALS: PULSE 63
--- NOTE | 2021-11-22 06:49 | P.PN_ITS ---
Subjective Subjective: The patient says she is feeling much better today. She is passing flatus. She would like a go home. Vitals/I&O/Wt Last Vital Signs Temp 98.0 F 11/22/21 04:00 Pulse 63 11/22/21 06:00 Resp 18 11/22/21 04:00 BP 98/70 11/22/21 04:00 Pulse Ox 94 11/22/21 04:00 11/21/21 11/21/21 11/22/21 14:59 22:59 06:59 Intake Total 50 / 1300 1250 / 1300 Output Total 320 / 1270 950 / 1270 Balance -270 / 30 300 / 30 Weight last 48 hrs Weight 150 lb Weight 150 lb Physical Exam Narrative: Bowel sounds are present. The patient still has some mild scattered tenderness about the abdomen but it does seem quite a bit improved over yesterday. Data : 11/22/21 04:52 11/22/21 04:52 Micro: Microbiology 11/21/21 16:04 Blood Culture - Preliminary Blood SPECIMEN COLLECTED 11/21/21 14:14 Blood Culture - Preliminary Blood SPECIMEN COLLECTED A&P Assessment and plan (1) Left lower quadrant abdominal pain: Much improved this morning. I am awaiting some laboratory studies but if everything looks okay then I told the patient I am okay with her going home. I am planning on leaving her on some antibiotics at home for a week. Status: Acute (2) Epigastric abdominal pain: The patient is a longtime NSAID user. Awaiting H pylori antibody. I will plan on her probably being discharged on an oral H2 shaheen or perhaps even a proton pump inhibitor. Status: Acute (3) NSAID long-term use: See above. Status: Acute Attestations Medical Necessity Statement*: The patient remains in observation status. She will likely go home later this morning. 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
--- NOTE | 2021-11-22 07:39 | PM.DCS ---
Discharge Providers Date of Admission: 11/21/21 15:44 Date of Discharge: November 22, 2021 Attending Provider at Admission: Shahram Borrero MD Attending Provider at Discharge: Shahram Borrero MD Primary Care Provider: Matias Nunez DO Diagnoses at Discharge Discharge Diagnosis (1) Left lower quadrant abdominal pain: Status: Acute (2) Epigastric abdominal pain: Status: Acute (3) NSAID long-term use: Status: Acute Reason for Visit Reason for Visit: Stomach pain, feeling of passing out Hospital Course Hospital Course This is a 55-year-old white female who underwent colonoscopy the day prior to presentation. Approximately 10 colon polyps were removed at the time of her procedure (cecum, proximal transverse colon, descending colon, sigmoid colon, rectum). The following day the patient was having some sharp abdominal pains and was instructed to come to the emergency room. A CAT scan showed no evidence of colonic perforation but there was some evidence of possible gastroduodenitis and possible colitis. The patient was brought in the hospital for observation and was empirically put on antibiotics. By the following morning the patient was feeling much better and was anxious to go home. Her white blood cell count was actually mildly elevated at the time but she was afebrile. Her exam was much improved. The decision was made to send her home on oral ciprofloxacin and metronidazole. In addition, she will be started on omeprazole for possible gastroduodenitis/long-term NSAID use. A H. pylori antibody was pending at the time of discharge. She already has an appointment to follow-up with me in my office next week regarding the pathology from all of her polyps. Physical Exam Narrative: On the day of discharge the patient's abdomen had bowel sounds. Some mild scattered tenderness remained but she was much improved from the exam the previous day. Discharge Data Studies Completed and Pending Completed Studies During Hospitalization Category Date Time Status CT abdomen pelvis w con* [id number] Stat Cat Scan 11/21/21 14:09 Completed XR chest 1V portable [id number] Stat Exams 11/21/21 14:09 Completed Pending at discharge Category Date Time Status Arterial Blood Gas Full Stat Lab 11/21/21 16:25 Received Blood Culture Stat Lab 11/21/21 16:04 Results H. Pylori IgG Antibody Routine Lab 11/22/21 06:29 Ordered Radiology Impressions Abdomen/Pelvis CT 11/21/21 14:09 IMPRESSION: 1. No evidence of free air or perforation. 2. Small amount of free fluid in the pelvis. Prominent LEFT ovarian cyst with peripheral enhancement measuring 3.5 x 3.3 x 3.6 p.m. AP by transverse by craniocaudal. Recommend follow-up with ultrasound. 3. A few areas of circumferential thickening and submucosal enhancement suspicious for colitis involving the hepatic flexure and LEFT descending colon. 4. Mild adynamic ileus involving the transverse colon with air-fluid levels. 5. Sigmoid diverticulosis. No evidence of acute diverticulitis. 6. Small esophageal hiatal hernia with gastroduodenitis. Preliminary discussed with Dr. Borrero at 3:30 PM Chest X-Ray 11/21/21 14:09 IMPRESSION: 1. No acute findings. 2. Stable surgical hardware cervical spine Laboratory Results WBC 13.8 10^3/uL (4.0-10.0) H 11/22/21 04:52 RBC 4.20 10^6/uL (4.1-5.3) 11/22/21 04:52 Hgb 12.5 g/dL (11.5-15.3) 11/22/21 04:52 Hct 39.4 % (37.0-47.0) 11/22/21 04:52 MCV 93.8 fl (81-99) 11/22/21 04:52 MCH 29.8 pg (28.0-34.0) 11/22/21 04:52 MCHC 31.7 g/dL (30.0-36.0) 11/22/21 04:52 RDW 14.0 % (12.1-15.1) 11/22/21 04:52 Plt Count 222 10^3/cmm (130-400) 11/22/21 04:52 MPV 11.4 fL (7.4-10.4) H 11/22/21 04:52 Neut % (Auto) 84.8 % 11/21/21 14:14 Lymph % (Auto) Not Reportable 11/22/21 04:52 [place] % (Auto) Not Reportable 11/22/21 04:52 Eos % (Auto) 0.4 % 11/21/21 14:14 Baso % (Auto) 0.3 % 11/21/21 14:14 Neut # (Auto) 8.08 10^3/uL (1.8-7.7) H 11/21/21 14:14 Lymph # (Auto) Not Reportable 11/22/21 04:52 [place] # (Auto) Not Reportable 11/22/21 04:52 Eos # (Auto) 0.0 10^3/uL (0.0-0.8) 11/21/21 14:14 Baso # (Auto) 0.0 10^3/uL (0.0-0.1) 11/21/21 14:14 Nucleated RBC % (auto) 0 % 11/21/21 14:14 Total Counted 100 (0-100) 11/22/21 04:52 Atypical Lymphs % 0.0 % (0-5) 11/22/21 04:52 Absolute Neutrophils 12.3 10^3/cmm (1.4-6.5) H 11/22/21 04:52 Segmented Neutrophils 70 % 11/22/21 04:52 Abs Segm Neuts (Man) 9.7 10/cmm (1.6-7.1) H 11/22/21 04:52 Band Neutrophils 19.0 % 11/22/21 04:52 Abs Band Neuts (Man) 2.6 10^3/cmm (0.0-1.2) H 11/22/21 04:52 Absolute Lymphocytes 1.0 10^3/cmm (1.2-3.4) L 11/22/21 04:52 Lymphocytes (Manual) 7 % 11/22/21 04:52 Monocytes (Manual) 4.0 % 11/22/21 04:52 Absolute Monocytes 0.6 10^3/cmm (0.1-0.6) 11/22/21 04:52 Eosinophils (Manual) 0 % 11/22/21 04:52 Absolute Eosinophils 0.0 10^3/cmm (0.0-0.7) 11/22/21 04:52 Basophils (Manual) 0.0 % 11/22/21 04:52 Absolute Basophils 0.0 10^3/cmm (0.0-0.2) 11/22/21 04:52 Nucleated RBCs # 0.0 /100WBC 11/21/21 14:14 Platelet Estimate Normal (Normal) 11/22/21 04:52 Sodium 134 mmol/L (136-145) L 11/22/21 04:52 Potassium 3.9 mmol/L (3.5-5.1) 11/22/21 04:52 Chloride 100 mmol/L (98-107) 11/22/21 04:52 Carbon Dioxide 23 mmol/L (22-29) 11/22/21 04:52 Anion Gap 14.9 (5-19) 11/22/21 04:52 BUN 10 mg/dL (6-20) 11/22/21 04:52 Creatinine 0.5 mg/dL (0.5-0.9) 11/22/21 04:52 GFR Calculation 129.1 mL/min (90-130) 11/22/21 04:52 Glucose 132 mg/dL (65-115) H 11/22/21 04:52 Calculated Osmolality 279 mOsm/kg (285-295) L 11/22/21 04:52 Lactic Acid 1.6 mmol/L (0.5-2.2) 11/21/21 14:14 Calcium 8.7 mg/dL (8.5-10.5) 11/22/21 04:52 Magnesium 1.9 mg/dL (1.7-2.3) 11/21/21 14:14 Total Bilirubin 0.9 mg/dL (0.15-1.2) 11/21/21 14:14 AST 16 U/L (0-32) 11/21/21 14:14 ALT 20 U/L (0-33) 11/21/21 14:14 Alkaline Phosphatase 75 IU/L (35-105) 11/21/21 14:14 Total Protein 6.9 g/dL (6.6-8.7) 11/21/21 14:14 Albumin 4.4 g/dL (3.5-5.2) 11/21/21 14:14 Globulin 2.5 g/dL (1.3-4.6) 11/21/21 14:14 Lipase 24 U/L (13-60) 11/21/21 14:14 Urine Color Yellow (Yellow) 11/21/21 18:25 Urine Appearance Clear (CLEAR) 11/21/21 18:25 Urine pH 7 (5-7) 11/21/21 18:25 Ur Specific [place] 1.010 (1.005-1.030) 11/21/21 18:25 Urine Protein Neg (Negative) 11/21/21 18:25 Urine Glucose (UA) Norm (Normal) 11/21/21 18:25 Urine Ketones Negative (Negative) 11/21/21 18:25 Urine Blood Neg (Negative) 11/21/21 18:25 Urine Nitrate Negative (Negative) 11/21/21 18:25 Urine Bilirubin Neg (Negative) 11/21/21 18:25 Urine Urobilinogen Neg mg/dL (Negative) 11/21/21 18:25 Ur Leukocyte Esterase Negative (Negative) 11/21/21 18:25 Vitals Last Vital Signs Temp 98.0 F 11/22/21 04:00 Pulse 63 11/22/21 06:00 Resp 18 11/22/21 04:00 BP 98/70 11/22/21 04:00 Pulse Ox 94 11/22/21 04:00 Discharge Plan Discharge Patient Disposition: Home Condition: Stable Prescriptions: New metronidazole 500 mg Tablet 500 mg PO TID Qty: 30 0RF omeprazole 20 mg capsule,delayed release(DR/EC) 20 mg PO DAILY Qty: 30 1RF ciprofloxacin HCl 500 mg Tablet 500 mg PO BID@0900,2100 Qty: 20 0RF Continued lisinopril 5 mg tablet 5 mg PO DAILY@0900 0RF albuterol sulfate 90 mcg/actuation aerosol powdr breath activated 2 inh INHALATION Q6H PRN (Reason: Shortness Of Breath) 0RF citalopram [Celexa] 20 mg tablet 20 mg PO DAILY@0900 0RF atorvastatin 20 mg tablet 20 mg PO DAILY@2200 0RF magnesium oxide 500 mg tablet 500 mg PO DAILY@0900 0RF gabapentin 600 mg tablet 600 mg PO Q6H PRN (Reason: chronic pain) 30 Days Qty: 120 0RF furosemide 40 mg Tablet 40 mg PO DAILY PRN (Reason: Weight Gain) 0RF potassium 99 mg Tablet 99 mg PO DAILY PRN (Reason: with Lasix) Qty: 0 0RF ibuprofen 200 mg Tablet 200 - 400 mg PO Q6H PRN (Reason: Pain) 0RF budesonide-formoterol [Symbicort] 160-4.5 mcg/actuation Hfa Aerosol Inhaler 2 puff INHALATION BID Qty: 0 0RF baclofen 10 mg Tablet 10 mg PO BID 0RF Discharge Orders: Discharge Order (Routine); Ordered 11/22/21 Ordered By: Shahram Borrero Referrals: Matias Nunez DO [Primary Care Provider] - Discharge Diet: Advance as tolerated Discharge Activity: Increase activity as tolerated Patient Instructions: Opioid Safety Activity Restrictions/Additional Instructions: Follow-up with Dr. Borrero next week as arranged. Discharge Attestations Time Spent in Discharge Care*: less than 30 min Quality Metrics Clinical Quality Measures [ No reported AMI, CVA or VTE this stay] Coding Level of Care Code Acute Chg [facility] note Diagnoses Left lower quadrant abdominal pain R10.32 Epigastric abdominal pain R10.13 NSAID long-term use Z79.1
[2021-11-22 07:41] VITALS: BP 110/63; PULSE 61; RESP 16; TEMP 36.7; O2SAT 96
[2021-11-22 08:04] VITALS: PULSE 61; RESP 16; O2SAT 96
[2021-11-22] MEDS: ciprofloxacin 500 mg Tablet PO (08:04)
[2021-11-22] MEDS: meloxicam 7.5 mg tablet 15 MG PO (08:04)
[2021-11-22] MEDS: lisinopril 5 mg Tablet PO (08:04)
[2021-11-22] MEDS: citalopram 20 mg Tablet PO (08:04)
[2021-11-22] MEDS: pantoprazole 40 mg SDV IVP (08:04)
[2021-11-22] MEDS: metroNIDAZOLE 500 MG Tablet PO (08:05)
[2021-11-22 09:03] LABS: ABG PCO2 43.5 mmHg (35-45); Alveolar-Arterial Oxygen Gradi 5.2 mmHg (5-10); Arterial Blood Gas Hematocrit 45.4 % (37-47); Base Excess ABG 1.4 mmol/L (-2.0-2.0); Blood Gas Allen Test Pos; Blood Gas Sample Site Radial, left; Blood Gas Sample Type Arterial; HCO3 ABG 26.7 mmol/L (22-26); Ionized Calcium Level - ABG 1.2 mmol/L (1.1-1.4); Oxygen Device ROOM AIR; Oxygen Saturation ABG 89.8; PO2 ABG 56.5 mmHg (80.0-100.0); Potassium Level - ABG 4.2 mmol/L (3.5-5.0); Total Hemoglobin 14.8 g/dL (12-16)
[2021-11-22 09:15] VITALS: PULSE 61; RESP 16; O2SAT 96
[2021-11-24 08:02] LABS: H. Pylori IgG Antibody Negative (Negative)
== END 2021-11-22 09:16 | disposition home or self-care (01) ==
LOC: ER 14:29 → MEDSURG 16:25
PROVIDERS: Admitting Provider Surgery; Emergency Provider Family Medicine; PCP Internal Medicine; Visit Provider Surgery
DX: R10.32 Left lower quadrant pain (principal); R10.13 Epigastric pain; Z79.1 Long term (current) use of non-steroidal anti-inflammatories (NSAID); J44.9 Chronic obstructive pulmonary disease, unspecified; F32.9 Major depressive disorder, single episode, unspecified; K21.9 Gastro-esophageal reflux disease without esophagitis; E78.5 Hyperlipidemia, unspecified; Z79.891 Long term (current) use of opiate analgesic; Z98.1 Arthrodesis status; Z87.891 Personal history of nicotine dependence
CPT/HCPCS: 36415; 36600; 71045; 74177; 80048; 80051; 80053; 81003; 82330; 82805; 83605; 83690; 83735; 85007; 85025; 86677; 87040; 87077; 87205; 93005; 94640; 96365; 96366; 96367; 96375; 99285; C9113; G0378; J1170; J1885; J2270; J2405; J2543; Q9967

== ENCOUNTER → 2022-03-29 13:37 | Outpatient (BNVA) | payer MEDICARE, SELFPAY | PROVIDERS: PCP Internal Medicine; Referring Provider Nurse Practitioner; Visit Provider Physician Assistant | DX: M54.50 Low back pain, unspecified (principal); M79.605 Pain in left leg; Z98.1 Arthrodesis status | CPT/HCPCS: 72110; 99203; 99204 ==

== ENCOUNTER 2022-05-08 07:53 | Outpatient (CLI) | payer MEDICARE, SELFPAY ==
--- NOTE | 2022-05-08 08:09 | MR_ITS ---
WS: [id number] MRI LUMBAR SPINE NONCONTRAST TECHNIQUE: Sagittal T1, T2 and STIR imaging. Axial T1 and T2 imaging. CLINICAL INFORMATION: LEFT SIDED WEAKNESS COMPARISON: CT May 01, 2021 and MRI June 17, 2020 FINDINGS: Mild lumbar curve. No acute compression. Slight retrolisthesis L3 on L4. Pedicle screw fixation L4-S1 with interconnecting rods. Interbody fusion L4-L5. L1-L2: Normal. L2-L3: No significant disc bulging. Spinal canal and foramen are patent. L3-L4: Slight retrolisthesis. Mild disc bulging with moderate central canal stenosis. Moderate facet arthropathy ligamentum flavum hypertrophy. Impingement subarticular recess bilaterally. Moderate bila teral foraminal narrowing. This is progressed compared to the prior MRI June 17, [address] L4-L5: Pedicle screw fixation. Laminectomy defects. Mild RIGHT bony foraminal narrowing. Spinal canal and foramen are patent. Mild facet arthropathy. L5-S1: Pedicle screw fixation. Laminectomy defects. Spinal canal and foramen are patent. Visualized pelvic bony structures: Normal. Paravertebral soft tissues: Normal. MR/MR lumbar spine wo con* [id number] IMPRESSION: 1. Mild lumbar curve. No acute compression. Slight retrolisthesis L3 on L4. 2. Pedicle screw fixation L4-S1 with interbody fusion L4-L5. 3. Disc desiccation L3-L4 has significantly progressed since the prior study w ith moderate central canal stenosis and slight retrolisthesis. Impingement tung ersing L4 nerve roots bilaterally with moderate bilateral foraminal narrowing. 4. Mild RIGHT bony L4-L5 foraminal narrowing.
== END 2022-05-08 07:54 | disposition home or self-care (01) ==
LOC: RAD 07:54
PROVIDERS: PCP Internal Medicine; Visit Provider Internal Medicine
DX: R53.1 Weakness (principal); M48.061 Spinal stenosis, lumbar region without neurogenic claudication
CPT/HCPCS: 72148

== ENCOUNTER → 2022-05-17 08:08 | Outpatient (BNVA) | payer MEDICARE, SELFPAY | PROVIDERS: PCP Internal Medicine; Visit Provider Physician Assistant | DX: M54.50 Low back pain, unspecified (principal); M79.605 Pain in left leg | CPT/HCPCS: 99214 ==

== ENCOUNTER → 2022-06-21 12:02 | Outpatient (BNVA) | payer MEDICARE, SELFPAY | PROVIDERS: PCP Internal Medicine; Visit Provider Internal Medicine | DX: Z01.818 Encounter for other preprocedural examination (principal); I10 Essential (primary) hypertension; Z87.891 Personal history of nicotine dependence | CPT/HCPCS: 99213; 99214 ==

== ENCOUNTER 2022-07-11 08:43 | Inpatient (IN) | payer MEDICARE, SELFPAY ==
[2022-07-02 11:04] VITALS: BMI 29.8
[2022-07-11] VITALS (18 sets, daily range): BP systolic 96–147; BP diastolic 58–94; PULSE 65–102; RESP 16–20; TEMP 36.4–36.6; O2SAT 92–97; BMI 29.8
--- NOTE | 2022-07-11 | SCC_ITS ---
Procedure done: 1.? L3 - pelvis posterolateral fusion 2. L3 to S1 instrumentation 3. lumbo pelvic instrumentation 4. Open SI joint fusion (11254) Right 5. Open SI joint fusion (08209) Left 6. L3/4 laminectomy with partial facetectomies 7. Removal of hardware deep from spine 8. computer navigation/ stereotactic for spine 9. Bone marrow aspirate from right iliac crest 10. use of autograft 11. use of allograft 1 second of fluoroscopic guidance, for a cumulative dose of 33.8 mGy, was provided to Dr. Ramachandran by the radiology department. C-arm images of the lumbar spine were saved for the patient's permanent record. [facility]
--- NOTE | 2022-07-11 | XR_ITS ---
WS: [id number] Lumbar spine, C-arm fluoroscopy, 07/11/2022 Clinical Data: L3-pelvis instrumentation Comparison: Lumbar spine, 03/29/2022 Findings: Dr. Ramachandran performed a lumbosacral fusion with bilateral pedicle screws L3-L5 and oblique screws fusi ng both SI joints. XR/XR lumbar spine 2-3V* [id number] Impression: Lumbosacral fusion.
[2022-07-11 08:17] LABS: Basophils % 0.5 %; Eosinophils # 0.1 10^3/uL (0.0-0.8); Eosinophils % 1.8 %; Hemoglobin 13.3 g/dL (11.5-15.3); Lymphocytes % 35.2 %; Mean Corpuscular HGB Conc 32.4 g/dL (30.0-36.0); Mean Corpuscular Hemoglobin 29.8 pg (28.0-34.0); Mean Corpuscular Volume 91.9 fl (81-99); Mean Platelet Volume 12.3 fL (7.4-10.4); Monocytes # 0.5 10^3/uL (0.2-0.9); Monocytes % 8.2 %; Neutrophils # 3.02 10^3/uL (1.8-7.7); Neutrophils % 53.9 %; Nucleated Red Blood Cells % 0 %; Platelet Count 68 10^3/cmm (130-400); Red Blood Count 4.46 10^6/uL (4.1-5.3); Red Cell Distribution Width 14.3 % (12.1-15.1); White Blood Count 5.6 10^3/uL (4.0-10.0)
--- NOTE | 2022-07-11 08:21 | ANES.PREANE2 ---
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, sacroiliac joint arthritis Operation Date: 07/11/22 08:30 Proposed Procedures p revision L3 to pelvis fusion [id number]/m54.50(Not Applicable) - Jose Ramachandran, DO Familial anesthetic complications: None Was Beta Michelle taken within 24 hours: N/A Was Clonidine taken within 24 hours: N/A Last intake: Intake Last Liquid Date 07/10/22 Last Liquid Time 23:00 Last Solid Date 07/10/22 Last Solid Time 20:00 Social No alcohol and No tobacco quit smoking Exam alert, oriented x 3, clear to auscultation bilaterally and regular rate & rhythm Airway Mallampati: Class III Dentition: partials Pulmonary Chronic Obstructive Pulmonary Disease CV/HEM Atrial Fibrillation (? hx of a fib), Arrythmia (bradycardia) and Hypertension GI Gastroesophageal Reflux Disease Metabolic Hyperlipidemia Anesthetic Plan ASA status: 3 Anesthesia: General Risk of > 500 ml blood loss (7ml/kg in children): Yes, adequate IV access and fluids planned Medications/Allergies Home Medications Medication Instructions Recorded Confirmed Last Taken Type albuterol sulfate 90 mcg/actuation 2 inh inhalation Q6H PRN Shortness 12/07/19 07/11/22 07/11/22 History breath activated powder inhaler Of Breath atorvastatin 20 mg tablet 20 mg PO DAILY@2200 12/07/19 07/11/22 07/10/22 History citalopram 20 mg tablet (Celexa) 20 mg PO DAILY@0900 12/07/19 07/11/22 07/10/22 History lisinopril 5 mg tablet 5 mg PO DAILY@0900 12/07/19 07/11/22 07/10/22 History budesonide-formoterol HFA 160 2 puff inhalation BID ##0 02/17/21 07/11/22 07/11/22 History mcg-4.5 mcg/actuation aerosol inhaler (Symbicort) furosemide 40 mg tablet 40 mg PO DAILY PRN Weight Gain 02/17/21 07/11/22 02/16/21 History ibuprofen 200 mg tablet 200 - 400 mg PO Q6H PRN Pain 02/17/21 07/11/22 02/17/21 History potassium 99 mg tablet 99 mg PO DAILY PRN with Lasix ##0 02/17/21 07/02/22 02/16/21 History omeprazole 20 mg capsule,delayed 20 mg PO DAILY #30 caps 11/22/21 07/11/22 07/10/22 Rx release baclofen 10 mg tablet 10 mg PO BID PRN Muscle Spasm 06/21/22 07/11/22 Unknown History gabapentin 600 mg tablet 900 mg PO Q6H PRN chronic pain 07/02/22 07/11/22 07/10/22 History Allergies Allergy/AdvReac Type Severity Reaction Status Date / Time No Known Allergies Allergy Verified 07/02/22 10:56 PFSH Anesthesia Medical History Cervical post-laminectomy syndrome Chronic pain Colon polyps COPD (chronic obstructive pulmonary disease) Depression Diverticulosis GERD (gastroesophageal reflux disease) Hiatal hernia Hyperlipidemia retirement (current) use of opiate analgesic Lumbar post-laminectomy syndrome Surgical History History of appendectomy History of x 4 History of carpal tunnel release R x 2 History of cervical spinal surgery (~2009) ACF x 3 History of decompression of median nerve (04/20/13) open release of the median nerve at the wrist on the right, reexploration. History of decompression of ulnar nerve (~2009) bilateral History of hysterectomy History of lumbar spinal fusion History of lumbar surgery (04/14/15) Dr. Espinosa, Right L5-S1 laminotomy/foraminotomy/partial facetectomy, reexploration. History of tubal ligation Family History Mother Heart disease Hypertension Kidney disease Sister Hypertension Social History Smoking and tobacco status: former smoker Second hand smoke exposure: No Alcohol intake: never Household members: spouse Marital status: Current occupational status: disabled History of recent travel: No Data Anesthesia : 07/11/22 08:02 07/11/22 08:02 Short CBC 07/11/22 Range/Units 08:02 WBC 5.6 (4.0-10.0) 10^3/uL Hgb 13.3 (11.5-15.3) g/dL Hct 41.0 (37.0-47.0) % MCV 91.9 (81-99) fl Plt Count 68 L (130-400) 10^3/cmm Neut % (Auto) 53.9 % Neut # (Auto) 3.02 (1.8-7.7) 10^3/uL Cardiac Studies: Cardiac Event Monitor 03/03/21
--- NOTE | 2022-07-11 08:45 | PM.HP ---
Providers/Chief Complaint Primary Care Provider: Matias Nunez DO Chief Complaint: lumbar fusion History of Present Illness Janel Mesa is a 56 year old female ow back pain. She presents today with MRI results of the lumbar spine.? Tinges to report low back and thigh pain as well as pain down into her buttock and groin on both sides.? She tries to stay active with physical therapy but is been very difficult due to the level of pain that she experiences.? Is been to pain clinic injections in the past with minimal relief. Review of Systems Const: Denies: fatigue Card: Denies: chest pain, palpitations, irregular heart rhythm, edema, swelling of feet/ankles, lightheadedness, pre-syncope, dyspnea on exertion, orthopnea or leg pain with exertion Resp: Denies: dyspnea, productive cough or non-productive cough Musc: Denies: neck pain or back pain Neuro: Denies: headache(s) or dizziness Psych: Denies: anxiety, depression, suicidal ideation or homicidal ideation [place]/Lymph: Reports: easy bruising; Denies: easy bleeding Medications/Allergies Home Medications Medication Instructions Recorded Confirmed Last Taken Type albuterol sulfate 90 mcg/actuation 2 inh inhalation Q6H PRN Shortness 12/07/19 07/11/22 07/11/22 History breath activated powder inhaler Of Breath atorvastatin 20 mg tablet 20 mg PO DAILY@2200 12/07/19 07/11/22 07/10/22 History citalopram 20 mg tablet (Celexa) 20 mg PO DAILY@0900 12/07/19 07/11/22 07/10/22 History lisinopril 5 mg tablet 5 mg PO DAILY@0912/07/19 07/11/22 07/10/22 History budesonide-formoterol HFA 160 2 puff inhalation BID ##0 02/17/21 07/11/22 07/11/22 History mcg-4.5 mcg/actuation aerosol inhaler (Symbicort) furosemide 40 mg tablet 40 mg PO DAILY PRN Weight Gain 02/17/21 07/11/22 02/16/21 History ibuprofen 200 mg tablet 200 - 400 mg PO Q6H PRN Pain 02/17/21 07/11/22 02/17/21 History potassium 99 mg tablet 99 mg PO DAILY PRN with Lasix ##0 02/17/21 07/02/22 02/16/21 History omeprazole 20 mg capsule,delayed 20 mg PO DAILY #30 caps 11/22/21 07/11/22 07/10/22 Rx release baclofen 10 mg tablet 10 mg PO BID PRN Muscle Spasm 06/21/22 07/11/22 Unknown History gabapentin 600 mg tablet 900 mg PO Q6H PRN chronic pain 07/02/22 07/11/22 07/10/22 History Allergies Allergy/AdvReac Type Severity Reaction Status Date / Time No Known Allergies Allergy Verified 07/02/22 10:56 PFSH Acute PFSH: Medical History Cervical post-laminectomy syndrome Chronic pain Colon polyps COPD (chronic obstructive pulmonary disease) Depression Diverticulosis GERD (gastroesophageal reflux disease) Hiatal hernia 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 History of decompression of ulnar nerve (~2009) bilateral History of hysterectomy History of lumbar spinal fusion History of lumbar surgery (04/14/15) Dr. Espinosa, Right L5-S1 laminotomy/foraminotomy/partial facetectomy, reexploration. History of tubal ligation Family History Mother Heart disease Hypertension Kidney disease Sister Hypertension Social History Smoking and tobacco status: former smoker Second hand smoke exposure: No Alcohol intake: never Household members: spouse Marital status: Current occupational status: disabled History of recent travel: No Vitals/I&O/Wt Last Vital Signs O2 Del Method 07/11/22 07:45 Physical Exam Narrative: CONSTITUTIONAL: The patient is a normal appearing [] in no apparent distress. GENERAL: Patient in no acute distress. CARDIAC: Regular rate and rhythm. CHEST: Normal inspiratory effort, normal respiratory rate. ABDOMEN: Soft and nontender. SKIN: Clear, warm and intact. NEURO?PSYCH: The patient is alert and oriented to person, place and time. Sensorv /SILT Motor StrengthShoulder abduction C5 5/5Wrist extension C6 5/5Elbow extension C7 5/5Hand Dry Drug Worker C8 5/5Finger abduction T15/5 Radial/ Ulnar/ Median n intact LowerSensory (SILT)Motor StrengthHin flexion L2/3Ant/inner thigh 5/5Hip adduction L2/3 5/5Knee extension L4 Lat thigh, 5/5Toe dorsiflexion L5 5/5Ankle dorsiflexion L5/ [id number] flexion S1 5/5 DTRBleeps 2+Triceps 2+Brachioradialis 2+Patellar 2+Achilles 2+ MUSCULOSKELETAL: [] UPPEREXTREMITIES: The patient had full active ROM in fingers, wrist, elbow, and shoulder. The patient demonstrated ability to fully flex/extend/abduct/adduct fingers, make ok sign, cross 2nd/3rd digits, extend 1st digit fully.. Radial pulse 2+, CR<2 seconds. LOWER EXTREMITIES: Pt has full, active ROM of toes, ankle, knee, and hip. Dorsalis pedis/posterior tibialis pulses 2+, CR<2 seconds. SPINE: Skin warm, dry, intact. Data : 07/11/22 08:02 07/11/22 08:02 A&P Assessment and plan (1) Lumbar stenosis with neurogenic claudication: L3 to pelvis fusion Attestations Medical Necessity Statement*: failed conservative treatment Coding Level of Care Code Acute Quality Improvement Coordinator for [facility] Fwd Diagnoses Lumbar stenosis with neurogenic claudication M48.062
[2022-07-11] MEDS: sodium chloride 0.9% 1,000 ML 30 ML IV (09:00)
[2022-07-11] MEDS: ceFAZolin 2,000 MG in sodium chloride 0.9% (plus) 50 ML 100 MG IV ×2 (09:40→17:27)
--- NOTE | 2022-07-11 11:09 | SUR.OPER ---
1021 family updated of surgical status 1109 family updated of surgical status
[2022-07-11] MEDS: heparin, porcine 1,000 unit/mL INJ 10 mL 10000 UNIT XX (11:48)
[2022-07-11] MEDS: vancomycin 1,000 MG SDV 1000 MG XX (11:49)
[2022-07-11 12:25] LABS: Anion Gap 12.8 (5-19); Blood Urea Nitrogen 10 mg/dL (6-20); Calcium 8.4 mg/dL (8.5-10.5); Carbon Dioxide 26 mmol/L (22-29); Chloride 101 mmol/L (98-107); Glomerular Filtration Rate 74.7 mL/min (90-130); Glucose 109 mg/dL (65-115); Osmolality Calculated 282 mOsm/kg (285-295); Potassium 3.8 mmol/L (3.5-5.1); Sodium 136 mmol/L (136-145)
--- NOTE | 2022-07-11 12:57 | SUR.PHASEI ---
1256 Bilat SCDs placed on pump.
[2022-07-11] MEDS: fentaNYL 50 mcg/mL INJ 2mL IVP (13:04)
--- NOTE | 2022-07-11 13:54 | ANE.PACU2 ---
Inpatient post-anesthesia follow up: Airway intact: Yes Vital signs: Temperature 97.5 F Pulse Rate 97 Respiratory Rate 18 Blood Pressure 135/90 Pulse Oximetry 96 Oxygen Delivery Me thod Nasal Cannula Oxygen Flow Rate 3 Fraction of Inspir ed Oxygen Hydration adequate: Yes Nausea and vomiting: No Pain level: 1 Mental status: Baseline
[2022-07-11] MEDS: baclofen 10 mg Tablet PO ×2 (13:58→20:47)
--- NOTE | 2022-07-11 14:34 | SUR.EXTENDED ---
patients hemovac drain output of 100ml sanguinous drainage. no clots noted. patient is awake and alert, on 2L with sats at 94%. patient states her pain is ok at this time. scds on . patient at bedside.
[2022-07-11] MEDS: ketorolac 30 mg/mL INJ IVP ×2 (15:00→22:10)
--- NOTE | 2022-07-11 15:10 | P.OP_ITS ---
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 L3 - pelvis posterolateral fusion 2. L3 to S1 instrumentation 3. lumbo pelvic instrumentation 4. Open SI joint fusion (59806) Right 5. Open SI joint fusion (75307) Left 6. L3/4 laminectomy with partial facetectomies 7. Removal of hardware deep from spine 8. computer navigation/ stereotactic for spine 9. Bone marrow aspirate from right iliac crest 10. use of autograft 11. use of allograft Surgeon: Jose Ramachandran Pupil Personnel Services Director: Jose Eduardo Auguste Estimated blood loss (mL): 300 Procedure: 1.? L3 - pelvis posterolateral fusion 2. L3 to S1 instrumentation 3. lumbo pelvic instrumentation 4. Open SI joint fusion (27454) Right 5. Open SI joint fusion (15834) Left 6. L3/4 laminectomy with partial facetectomies 7. Removal of hardware deep from spine 8. computer navigation/ stereotactic for spine 9. Bone marrow aspirate from right iliac crest 10. use of autograft 11. use of allograft Patient is brought to the operative suite.? After undergoing anesthesia, the patient had neuro monitoring attached.? Patient was then placed in the prone position on the Michael table.? All areas of impingement were well-padded.? Patient was then prepped and draped in the normal sterile fashion.? Skin incision was then made over theL3 to S1.? This was done including the patient's previous incision. Subperiosteal dissection was made out to the transverse processes of L3 down to L5.? And also exposing the sacral ala over the L5/S1 facet.? The SI joints were also exposed.? The hardware from L4-S1 was identified. The screws were removed this was done by removing the screw caps the rods and then unscrewed the screws. The pedicle feeler was used to ensure the screws were in the prone position. And then the screws from [employer] were used to replace the previous screws. Once the screws were placed. The S1 screw on the left the head snapped off however there was a already a fusion so which is left's broken screw in in order to facilitate less damage and taking it out. Next attention was brought to obtaining the bone marrow aspirate.? The [employer] bone marrow aspirate kit was used to aspirate bone marrow aspirate.? This was done by using the sharp probe to open up the bone.? Aspiration was performed and then the blunt probe was then used to dissect down to through the bone tunnel.? An aspirating well drawn back a millimeter approximately 20 cc of bone marrow aspirate was used.? Admixed with the allograft and autograft bone that will be used. Is brought to placing the fiducial for the computer navigation.? The computer navigation fiducial was hooked up to 2 pins were placed into the right iliac crest.? These 2 pins were later moved at the end of the case.? The C-arm was brought in and spun around the patient and then the information was linked to the computer in order to facilitate placing the screws. Next attention was brought to placing the sacral ala iliac screws.? These were done bilaterally.? The right side was done first.? The gearshift was placed using computer navigation.? And then the pedicle feeler was inserted in order to facilitate that there were no breaches.? This was also placed in order to facilitate marking where the screw was going to go.? Because Next the attention was brought to placing the open sacral iliac joint fusion.? The exposure was done over the sacroiliac joint.? Using the gearshift probe the SI joint was identified and a K wire was placed into the sacroiliac joint.? Tissue protectors were passed around the sacroiliac joint pain and then a drill was placed into the sacroiliac joint going in the parallel fashion into the SI joint.? Next a allograft cage was placed into the SI joint.? This was done superior to the plan.? The same process was repeated inferior to the pin.? Next attention was placed to placing the right sacral ala iliac screw using computer navigation this is a 80 mm 9.5 mm Canterbury screw. Next attention was brought to the left side.he gearshift was placed using computer navigation.? And then the pedicle feeler was inserted in order to facilitate that there were no breaches.? This was also placed in order to facilitate marking where the screw was going to go.? Because Next the attention was brought to placing the open sacral iliac joint fusion.? The exposure was done over the sacroiliac joint.? Using the gearshift probe the SI joint was identified and a K wire was placed into the sacroiliac joint.? Tissue protectors were passed around the sacroiliac joint pain and then a drill was placed into the sacroiliac joint going in the parallel fashion into the SI joint.? Next a allograft cage was placed into the SI joint.? This was done superior to the plan.? The same process was repeated inferior to the pin.? Next attention was placed to placing the right sacral ala iliac screw using computer navigation this is a 80 mm 9.5 mm Canterbury screw. A total of 4 cages were placed into the bilateral sacral iliac joints. Next attention was brought to placing the pedicle screws.? The technique for placing the pedicle screws was to use a drill followed by the gearshift probe.? Followed by the ball probe to feel the superior inferior medial lateral dugan of the pedicles.? Then placement of the screws.? Was done at each pedicle.? Screws were placed at L3 bilaterally. Next attention was brought to performing the laminectomy ofL3.? This was done using the high-speed bur Kerrisons and curettes.? Once the lamina was removed and then attention was brought to performing a partial facetectomy on the contralateral side.? This was done again using the high-speed bur curettes and Kerrisons.? The ligamentum flavum was taken down bilaterally from L3 to L4.? Attention was then brought to the facet on the ipsilateral side.? The facet was taken down.? The L4 nerve was decompressed as it passed around the L4 pedicle bilateral.? The laminectomy was done for purposes of decompressing the nerve ? The L3 nerve was identified as it traversed through the L3/4 foramen bilateral.? Attention was then brought to attaching the rods to the screws placed in the L3 down to S1 bilaterally and attaching onto the sacral ala iliac screw bilaterally.? Caps were torqued into position. Locking the construct in place. Wound was copiously irrigated and then attention was brought to decorticating the facets and transverse processes laterally.? Bone that was taken down from the lamina was used along with osteoamp fibers and sponges were packed into the lateral gutters along the facet joints.? This was done bilaterally. Wound was then closed in a layered fashion starting with the thoracolumbar fascia.? 0-vicryl was used the sub cutaneous tissue was closed with 2-0 vicryl and skin with 4-0 monocryl.? Glue was then used to seal the skin and a steril dressing was applied.? Patient was then placed in the supine position. The endotracheal tube was removed and patient was transferred to the PACU in stable condition.
--- NOTE | 2022-07-11 15:43 | SUR.EXTENDED ---
patient transported to room 257. report called to pablo. patient awake and alert, on 2l with sats at 96%. patient has hemovac drain in place, abd binder in place. dressing to low back dry and intact. scd in place. pt present on transport. patient transferred self from [facility] to floor bed, tolerated well.
[2022-07-11] MEDS: lactated ringers 1,000 ML 90 ML IV (16:12)
[2022-07-11] MEDS: docusate sodium 100 mg Capsule PO (17:28)
[2022-07-11] MEDS: HYDROcodone-acetaminophen 5-325 mg Tablet PO ×2 (17:28→20:46)
[2022-07-11] MEDS: atorvastatin 40 mg Tablet 20 MG PO (20:47)
[2022-07-11] MEDS: gabapentin 300 mg Capsule 900 MG PO (20:50)
[2022-07-12] VITALS: BP 150/71; PULSE 62; RESP 16; TEMP 36.7; O2SAT 98
[2022-07-12] MEDS: ceFAZolin 2,000 MG in sodium chloride 0.9% (plus) 50 ML 100 MG IV ×2 (01:46→09:16)
[2022-07-12] MEDS: lactated ringers 1,000 ML 90 ML IV (01:51)
[2022-07-12] MEDS: HYDROcodone-acetaminophen 5-325 mg Tablet PO ×2 (01:51→09:16)
[2022-07-12 03:25] VITALS: BP 133/76; PULSE 60; RESP 17; TEMP 36.8; O2SAT 98
--- NOTE | 2022-07-12 07:07 | P.PN_ITS ---
Subjective Subjective: POD 1 Patient resting in a chair. No apparent distress. C/O of spasming pain in her back and legs. Vitals/I&O/Wt Last Vital Signs Temp 98.3 F 07/12/22 03:25 Pulse 60 07/12/22 03:25 Resp 17 07/12/22 03:25 BP 133/76 07/12/22 03:25 Pulse Ox 98 07/12/22 03:25 O2 Del Method 07/12/22 03:25 O2 Flow Rate 2 07/11/22 20:00 07/11/22 07/12/22 07/12/22 22:59 06:59 14:59 Intake Total 50 / 100 1418.5 / 1518.5 Output Total 350 / 1550 275 / 1825 Balance -300 / -1450 1143.5 / -306.5 Weight last 48 hrs Weight 163 lb Physical Exam Narrative: Patient presents alert and oriented x3 with a good general appearance normal mood and affect. Normal coordination normal stability. Mild tenderness around the incisional site with the incision appear to be C/D. No signs of erythema or drainage. No signs of infection. Patient denies any fevers or chills. 4/5 motor strength both lower extremities with negative straight leg raise bilaterally. Calves are supple no medial thigh tenderness. Pulses are 2+ at the dorsalis pedis and posterior tibial region. Good capillary refill throughout normal sensation light touch both lower extremities. Urinary Catheter Management: Costa Latex Free: Cath Placed During This Visit: yes, but has since been removed by the nurse Reason for Continuing Indwelling Catheter: Perioperative Use in Selected Surgeries Urinary Catheter Date of Insertion: 07/11/22 Urinary Catheter Time of Insertion: 09:50 Date Urinary Catheter Removed: 07/11/22 Time Urinary Catheter Discontinued: 18:02 Data : 07/11/22 08:02 07/11/22 09:57 A&P Assessment and plan (1) Status post lumbar spinal fusion: We will repeat CBC. Encourage incentive spirometry for pulmonary toilet. Physical therapy to work with mobilization. Based on the output to the Hemovac drain will take to gravity. Hold discharge until medically stable. (2) Thrombocytopenia: Attestations Medical Necessity Statement*: Home possibly tomorrow when more medically stable and better pain control. Coding Level of Care Code Acute Primary [employer] Principal for Chg Fwd Diagnoses Status post lumbar spinal fusion Z98.1 Thrombocytopenia D69.6
[2022-07-12 07:59] VITALS: PULSE 71; RESP 17; O2SAT 92
[2022-07-12 08:11] LABS: Basophils % 0.1 %; Eosinophils % 0.1 %; Hematocrit 39.8 % (37.0-47.0); Hemoglobin 12.5 g/dL (11.5-15.3); Lymphocytes # 1.5 10^3/uL (0.8-4.8); Lymphocytes % 19.2 %; Mean Corpuscular HGB Conc 31.4 g/dL (30.0-36.0); Mean Corpuscular Hemoglobin 29.6 pg (28.0-34.0); Mean Corpuscular Volume 94.3 fl (81-99); Mean Platelet Volume 11.9 fL (7.4-10.4); Monocytes # 0.5 10^3/uL (0.2-0.9); Monocytes % 6.9 %; Neutrophils # 5.54 10^3/uL (1.8-7.7); Neutrophils % 73.3 %; Nucleated Red Blood Cells % 0 %; Platelet Count 186 10^3/cmm (130-400); Red Blood Count 4.22 10^6/uL (4.1-5.3); Red Cell Distribution Width 14.7 % (12.1-15.1); White Blood Count 7.6 10^3/uL (4.0-10.0)
[2022-07-12] MEDS: lisinopril 5 mg Tablet PO (09:16)
[2022-07-12] MEDS: pantoprazole DR 40 mg Tablet PO (09:16)
[2022-07-12] MEDS: citalopram 20 mg Tablet PO (09:17)
[2022-07-12] MEDS: docusate sodium 100 mg Capsule PO (09:17)
[2022-07-12] MEDS: gabapentin 300 mg Capsule 900 MG PO (09:23)
--- NOTE | 2022-07-12 10:15 | PM.PN ---
Subjective Subjective: Sitting up in the chair and pacing the room ready to be discharged home reports improvement of her leg pain mild back pain. She states the spasms give her most of her pain she has been taking baclofen without relief. Vitals/I&O/Wt Last Vital Signs Temp 98.3 F 07/12/22 03:25 Pulse 71 07/12/22 07:59 Resp 17 07/12/22 07:59 BP 133/76 07/12/22 03:25 Pulse Ox 92 07/12/22 07:59 O2 Del Method 07/12/22 07:59 O2 Flow Rate 2 07/11/22 20:00 07/11/22 07/12/22 07/12/22 22:59 06:59 14:59 Intake Total 50 / 100 1418.5 / 1518.5 Output Total 350 / 1550 275 / 1825 Balance -300 / -1450 1143.5 / -306.5 Weight last 48 hrs Weight 163 lb Physical Exam Narrative: Patient presents alert and oriented x3 with a good general appearance normal mood and affect. Normal coordination normal stability. Mild tenderness around the incisional site with the incision appear to be healing nicely. No signs of erythema or drainage. No signs of infection. Patient denies any fevers or chills. 5/5 motor strength both lower extremities with negative straight leg raise bilaterally. Calves are supple no medial thigh tenderness. Pulses are 2+ at the dorsalis pedis and posterior tibial region. Good capillary refill throughout normal sensation light touch both lower extremities. Urinary Catheter Management: Costa Latex Free: Cath Placed During This Visit: yes, but has since been removed by the nurse Reason for Continuing Indwelling Catheter: Perioperative Use in Selected Surgeries Urinary Catheter Date of Insertion: 07/11/22 Urinary Catheter Time of Insertion: 09:50 Date Urinary Catheter Removed: 07/11/22 Time Urinary Catheter Discontinued: 18:02 Data : 07/12/22 07:30 07/11/22 09:57 A&P Assessment and plan (1) Status post lumbar spinal fusion: Reviewed the lab which her platelets were back to normal level therefore the concern that the last CBC was air and reporting 68,000 platelets. We will discontinue the Hemovac drain will encourage her to continue walking program. We will discontinue the baclofen we will switch her to Flexeril 10 mg 1 tablet 8 every 8 hours as needed spasms and she will continue with the hydrocodone fives. We will see her back in the office in 1 week's time she will call if she is having problems. Attestations Medical Necessity Statement*: Discharge home today Coding Level of Care Code Acute Police Officer for Barber Henning Diagnoses Status post lumbar spinal fusion Z98.1
--- NOTE | 2022-07-12 12:11 | PC.NURSE ---
Discharge Note Patient was discharged to home and accompined by family. The hemovac was removed and a dressing was applied. Any and all questions were answered. Patient verblized understanding of the instructions.
[2022-07-12 12:16] VITALS: BP 127/84; PULSE 57; RESP 16; TEMP 36.8; O2SAT 99
--- NOTE | 2022-07-16 07:13 | P.DS_ITS ---
Discharge Providers Date of Admission: 07/11/22 08:43 Date of Discharge: July 13, 2022 Attending Provider at Admission: Jose Ramachandran DO Attending Provider at Discharge: Jose Ramachandran DO Primary Care Provider: Matias Nunez DO Diagnoses at Discharge Discharge Diagnosis (1) Status post lumbar spinal fusion: Status: Acute Reason for Visit Reason for Visit: lumbar fusion Hospital Course Hospital Course uneventful Physical Exam Urinary Catheter Management: Costa Latex Free: Cath Placed During This Visit: yes, but has since been removed by the nurse Reason for Continuing Indwelling Catheter: Perioperative Use in Selected Surgeries Urinary Catheter Date of Insertion: 07/11/22 Urinary Catheter Time of Insertion: 09:50 Date Urinary Catheter Removed: 07/11/22 Time Urinary Catheter Discontinued: 18:02 Discharge Data Studies Completed and Pending Completed Studies During Hospitalization Category Date Time Status XR lumbar spine 2-3V* 63940 Routine Exams 07/11/22 Completed Radiology Impressions Lumbar Spine X-Ray 07/11/22 00:00 Impression: Lumbosacral fusion. Laboratory Results WBC 7.6 10^3/uL (4.0-10.0) 07/12/22 07:30 RBC 4.22 10^6/uL (4.1-5.3) 07/12/22 07:30 Hgb 12.5 g/dL (11.5-15.3) 07/12/22 07:30 Hct 39.8 % (37.0-47.0) 07/12/22 07:30 MCV 94.3 fl (81-99) 07/12/22 07:30 MCH 29.6 pg (28.0-34.0) 07/12/22 07:30 MCHC 31.4 g/dL (30.0-36.0) 07/12/22 07:30 RDW 14.7 % (12.1-15.1) 07/12/22 07:30 Plt Count 186 10^3/cmm (130-400) D 07/12/22 07:30 MPV 11.9 fL (7.4-10.4) H 07/12/22 07:30 Neut % (Auto) 73.3 % 07/12/22 07:30 Lymph % (Auto) 19.2 % 07/12/22 07:30 Ida % (Auto) 6.9 % 07/12/22 07:30 Eos % (Auto) 0.1 % 07/12/22 07:30 Baso % (Auto) 0.1 % 07/12/22 07:30 Neut # (Auto) 5.54 10^3/uL (1.8-7.7) 07/12/22 07:30 Lymph # (Auto) 1.5 10^3/uL (0.8-4.8) 07/12/22 07:30 Ida # (Auto) 0.5 10^3/uL (0.2-0.9) 07/12/22 07:30 Eos # (Auto) 0.0 10^3/uL (0.0-0.8) 07/12/22 07:30 Baso # (Auto) 0.0 10^3/uL (0.0-0.1) 07/12/22 07:30 Nucleated RBC % (auto) 0 % 07/12/22 07:30 Nucleated RBCs # 0.0 /100WBC 07/12/22 07:30 Sodium 136 mmol/L (136-145) 07/11/22 09:57 Potassium 3.8 mmol/L (3.5-5.1) 07/11/22 09:57 Chloride 101 mmol/L (98-107) 07/11/22 09:57 Carbon Dioxide 26 mmol/L (22-29) 07/11/22 09:57 Anion Gap 12.8 (5-19) 07/11/22 09:57 BUN 10 mg/dL (6-20) 07/11/22 09:57 Creatinine 0.8 mg/dL (0.5-0.9) 07/11/22 09:57 GFR Calculation 74.7 mL/min (90-130) L 07/11/22 09:57 Glucose 109 mg/dL (65-115) 07/11/22 09:57 Calculated Osmolality 282 mOsm/kg (285-295) L 07/11/22 09:57 Calcium 8.4 mg/dL (8.5-10.5) L 07/11/22 09:57 Blood Type AB Positive 07/11/22 08:02 Rho(D) Type Positive 07/11/22 08:02 Antibody Screen Negative 07/11/22 08:02 Vitals Last Vital Signs Temp 98.3 F 07/12/22 12:16 Pulse 57 L 07/12/22 12:16 Resp 16 07/12/22 12:16 BP 127/84 07/12/22 12:16 Pulse Ox 99 07/12/22 12:16 O2 Del Method 07/12/22 07:59 O2 Flow Rate 2 07/11/22 20:00 Discharge Plan Discharge Patient Disposition: Home Condition: Stable Prescriptions: New hydrocodone-acetaminophen 5-325 mg Tablet 1 - 2 tab PO Q4H PRN (Reason: Postop pain) Qty: 40 0RF cyclobenzaprine 10 mg tablet 10 mg PO TID PRN (Reason: muscle spasm) Qty: 30 0RF Continued lisinopril 5 mg tablet 5 mg PO DAILY@0900 albuterol sulfate 90 mcg/actuation aerosol powdr breath activated 2 inh INHALATION Q6H PRN (Reason: Shortness Of Breath) citalopram [Celexa] 20 mg tablet 20 mg PO DAILY@0900 atorvastatin 20 mg tablet 20 mg PO DAILY@2200 furosemide 40 mg Tablet 40 mg PO DAILY PRN (Reason: Weight Gain) potassium 99 mg Tablet 99 mg PO DAILY PRN (Reason: with Lasix) Qty: 0 ibuprofen 200 mg Tablet 200 - 400 mg PO Q6H PRN (Reason: Pain) budesonide-formoterol [Symbicort] 160-4.5 mcg/actuation Hfa Aerosol Inhaler 2 puff INHALATION BID Qty: 0 omeprazole 20 mg capsule,delayed release(DR/EC) 20 mg PO DAILY Qty: 30 1RF gabapentin 600 mg tablet 900 mg PO Q6H PRN (Reason: chronic pain) Discontinued baclofen 10 mg tablet 10 mg PO BID PRN (Reason: Muscle Spasm) No Action (DME) Bone Growth Stimulator E0748 See Rx Instructions .Route .MEDSUPPLY Qty: 1 0RF Rx Instructions: As directed Discharge Orders: Discharge Order (Routine); Ordered 07/12/22 Ordered By: Jose Eduardo Auguste Referrals: Jose Ramachandran DO [Physician] - 07/19/22 2:00 pm Matias Nunez DO [Primary Care Provider] - 07/23/22 1:45 pm Discharge Diet: Advance as tolerated Discharge Activity: Limit activity as instructed Patient Instructions: Hydrocodone/Acetaminophen (By mouth), Cyclobenzaprine (By mouth), Thrombocytopenia (DC), Lumbar Spinal Fusion (DC), Opioid Safety Activity Restrictions/Additional Instructions: Thank you for choosing [facility] for your care! The following is a list of instructions, from your provider, to follow upon your di scharge to ensure you have the optimal recovery from your recent injury or surgery. Follow-up care is a moore part of your treatment and safety. Be sure to make and go to all appointments and call your doctor if you are having problems. If you do not already have a follow-up appointment made, call Dr. Ramachandran's] office in the next 1-3 days to make follow up appointment for 1 weeks at [phone]. It is also a good idea to know your test results and keep a list of the medicines you take. Medications will be prescribed for you at your provider's discretion. These medications are to be used as instructed; if they are taken more often that prescribed they will not be refilled early and in most cases will not be refilled at all. > When a refill is needed, you should contact junior franco 2-3 business days before your prescription runs out. Medications will NOT be refilled by accounts payable professional providers after hours! > Many pain medications contain Tylenol (Acetaminophen). Do not consume more than 4,000 mg of Tylenol per day in total with any combination of medications. > Pain medications can cause constipation. Please use an over the counter stool softener as directed, while taking pain medications. Consult your local pharmacist with questions or recommendations on stool softeners. If constipation persists, contact our office or your primary care provider. > While under our care, you are not to receive pain medications or other controlled substances from any other provider unless our office is notified and approves. Any attempts to do so will result in refusal to prescribe any further pain medications and possible dismissal from our practice. ? Walking is essential for the healing process after surgery. We would like you to slowly advance your walking. This should be done on relatively flat clear ground (inside or out) or can be done on a treadmill. Remember this goal does not have to happen all at once, slowly increase your distance and duration. This can be broken into more more than one walk per day as tolerated. Patients who walk as directed after surgery rarely require Physical Therapy. In the unlikely event this issue arises your provider will direct hospital staff to make the appropriate arrangements. ? No lifting over 5 pounds {a gallon of milk) or bending/twisting until further notice. Each of these activities places an unnecessary amount of stress onto the body and can impede the delicate healing process. > Instead of bending at the waist, keep your back straight and bend at the knees. > Instead of twisting your torso, keep your back straight and turn your entire body with your feet. ? You may sleep in any position which makes you comfortable. Many patients find comfort sleeping in a reclining chair. It is not abnormal to have difficulty sleeping for the first several weeks following your surgery. We recommend trying Benadry! or Tylenol PM as directed to help with your sleeping difficulties. Both medications are over the counter and available without prescription. ? NO SMOKING!!! Smoking dramatically increases the probability of developing postoperative wound infections. ? Common complaints after lumbar and/or thoracic spine surgery include, but are not limited to: numbness and/or tingling in the legs, pain around the incision and surrounding tissues, muscle spasms, or stiffness of the middle to low back. Contact our office if these symptoms persist or if an acute change occurs. ? No driving for the first 3-5days, and not while taking narcotics until seen at your follow-up appointment and cleared. There are no restrictions for riding on short trips, however if you take a longer trip, arrangements should be made to make regular stops to get out of the vehicle and stretch . ? Swelling is an unfortunate event that will take place with any surgery and is the primary source of your postoperative discomfort. While walking and regular approved activities helps control inflammation, there are additional steps you can take to minimize swelling. > Place ice over the surgical site and surrounding tissue for twenty minutes, followed by applying a low/medium heat (heating pad) for an additional twenty minutes every 1-2 hours as needed for painrelief. > You may use of over the counter anti-inflammatory medications (Ibuprofen, Motrin, Aleve, Advil, etc) as directed on the package label. These types of medicines will significantly reduce the amount of discomfort you experience after surgery from swelling. It should be noted that if you have and allergy to any of these medications, or a history of ulcers or kidney disease you should consult you primary care provider prior to starting these medications. Discharge Attestations Time Spent in Discharge Care*: less than 30 min Quality Metrics Clinical Quality Measures [ No reported AMI, CVA or VTE this stay] Coding Level of Care Code Acute Chg FW DC note Diagnoses Status post lumbar spinal fusion Z98.1
== END 2022-07-12 11:54 | disposition home or self-care (01) | DRG 460 ==
LOC: MEDSURG 07-12 00:14
PROVIDERS: Anesthesiology; Physician Assistant; Admitting Provider Orthopaedic Surgery; PCP Internal Medicine; Visit Provider Orthopaedic Surgery
PROC: 0SG1071 Fusion of 2 or more Lumbar Vertebral Joints with Autologous Tissue Substitute, Posterior Approach, Posterior Column, Open Approach (ICD-10-PCS; principal; 2022-07-11 08:20)
DX: M48.062 Spinal stenosis, lumbar region with neurogenic claudication (principal); M96.1 Postlaminectomy syndrome, not elsewhere classified; G89.29 Other chronic pain; J44.9 Chronic obstructive pulmonary disease, unspecified; F32.A Depression, unspecified; K21.9 Gastro-esophageal reflux disease without esophagitis; E78.5 Hyperlipidemia, unspecified; Z79.891 Long term (current) use of opiate analgesic; Z98.1 Arthrodesis status; Z87.891 Personal history of nicotine dependence; M46.1 Sacroiliitis, not elsewhere classified; D69.6 Thrombocytopenia, unspecified
CPT/HCPCS: 36415; 51702; 72100; 76000; 80048; 85025; 86850; 86900; 94640; 97161; C1713; C1762; J0360; J1100; J1170; J1644; J1885; J2405; J2704; J3010; J3370; J3490; J7030; J7611; P9041

== ENCOUNTER → 2022-07-19 13:50 | Outpatient (BNVA) | payer MEDICARE, SELFPAY | PROVIDERS: PCP Internal Medicine; Visit Provider Orthopaedic Surgery | DX: Z47.89 Encounter for other orthopedic aftercare (principal); Z98.1 Arthrodesis status; M47.816 Spondylosis without myelopathy or radiculopathy, lumbar region; M41.9 Scoliosis, unspecified | CPT/HCPCS: 72100; 99024 ==

== ENCOUNTER → 2022-07-24 10:16 | Outpatient (BNVA) | payer MEDICARE, SELFPAY | PROVIDERS: PCP Internal Medicine; Visit Provider Orthopaedic Surgery | DX: Z47.89 Encounter for other orthopedic aftercare (principal); Z98.1 Arthrodesis status | CPT/HCPCS: 99024 ==

== ENCOUNTER → 2022-08-21 10:27 | Outpatient (BNVA) | payer MEDICARE, SELFPAY | PROVIDERS: PCP Internal Medicine; Visit Provider Orthopaedic Surgery | DX: Z47.89 Encounter for other orthopedic aftercare (principal); Z98.1 Arthrodesis status | CPT/HCPCS: 72100; 99024 ==

== ENCOUNTER → 2022-09-04 08:28 | Outpatient (BNVA) | payer MEDICARE, SELFPAY | PROVIDERS: PCP Internal Medicine; Visit Provider Physician Assistant | DX: Z98.1 Arthrodesis status (principal); Z98.890 Other specified postprocedural states | CPT/HCPCS: 72040; 72100; 99213 ==

== ENCOUNTER 2022-09-08 17:54 | Emergency (ER) | payer MEDICARE, SELFPAY ==
[2022-09-08 17:55] VITALS: BP 118/75; PULSE 77; O2SAT 94; BMI 29.8
--- NOTE | 2022-09-08 18:01 | XRR_ITS ---
PROCEDURE INFORMATION: Exam: XR Chest Exam date and time: 09/08/2022 6:05 PM Age: 56 years old Clinical indication: Pain; Chest pressure; Additional info: Chest pain TECHNIQUE: Imaging protocol: Radiologic exam of the chest. Views: 1 view. COMPARISON: CR XR chest 1V portable [id number] 11/21/2021 2:38 PM FINDINGS: Lungs: Unremarkable. No consolidation. Pleural spaces: Unremarkable. No pleural effusion. No pneumothorax. Heart/Mediastinum: Unremarkable. No cardiomegaly. Bones/joints: Unremarkable. XR/XR chest 1V portable [id number] IMPRESSION: No acute findings.
--- NOTE | 2022-09-08 18:02 | ECG_ITS ---
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
--- NOTE | 2022-09-08 18:02 | ECG_ITS ---
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
--- NOTE | 2022-09-08 18:02 | ED_ITS ---
HPI - Chest Pain General: Chief Complaint: Chest Pain Stated Complaint: CHEST PAIN Time Seen by Provider: 09/08/22 18:01 History of Present Illness: 56-year-old female comes in today with complaints of midsternal chest pain that started about an hour prior to arrival to the ER. Patient was picked up by EMS and was given aspirin. Patient has a history of hypertension, GERD, long-term opiate use, NSAID use, degenerative disc disease. Associated symptoms: Reports dyspnea; Deny fever(s) Review of Systems Const: Denies: fever(s) Card: Reports: chest pain Resp: Reports: dyspnea PFSH ED PFSH: Medical History (Updated 09/08/22 @ 21:24 by DAVIAN Martinez) Cervical post-laminectomy syndrome Chronic pain Colon polyps COPD (chronic obstructive pulmonary disease) Depression Diverticulosis GERD (gastroesophageal reflux disease) Hiatal hernia Hyperlipidemia [facility] (current) use of opiate analgesic Lumbar post-laminectomy syndrome Surgical History (Updated 09/04/22 @ 09:02 by Jose Eduardo Auguste PA-C) History of appendectomy History of x 4 History of carpal tunnel release R x 2 History of cervical spinal surgery (~2009) ACF x 3 History of cervical spinal surgery (09/04/12) Dr. Espinosa C3-C7 ACDFF History of decompression of median nerve (04/20/13) open release of the median nerve at the wrist on the right, reexploration. History of decompression of ulnar nerve (~2009) bilateral History of hysterectomy History of lumbar fusion (07/28/18) L4-L5 posterior lumbar interbody fusion with conversion of chronis L5-S1 fixation to an L4-L5-S1 pedicle screw alyse fixation construct. History of lumbar spinal fusion History of lumbar surgery (04/14/15) Dr. Espinosa, Right L5-S1 laminotomy/foraminotomy/partial facetectomy, reexploration. History of lumbar surgery (12/26/15) L5-S1 laminectomy/fusion/resection of recurrent epidural synovial cyst. History of tubal ligation Family History Mother Heart disease Hypertension Kidney disease Sister Hypertension Social History Smoking and tobacco status: former smoker Second hand smoke exposure: No Alcohol intake: never Household members: spouse Marital status: Current occupational status: disabled History of recent travel: No Physical Exam Const: COMMON NORMALS: alert HENMT: COMMON NORMALS: normocephalic HEAD & SCALP: normocephalic Neck/C-Spine: COMMON NORMALS: full ROM Chest: CHEST: Yes tenderness Resp: COMMON NORMALS: normal respiratory effort AUSCULTATION: diminished lung sounds Cardio: COMMON NORMALS: regular rate and regular rhythm RATE: regular rate RHYTHM: regular rhythm GI: COMMON NORMALS: Soft to palpation PALPATION: Yes Soft to palpation and Yes Tenderness to palpation present (GI) (Midepigastric) : COMMON NORMALS: Yes no CVA tenderness BLADDER/KIDNEY EXAM: Yes no CVA tenderness Back/Pelvis: COMMON NORMALS: no CVA tenderness Extremity: COMMON NORMALS: normal to inspection Neuro: SENSORIUM/ORIENTATION: Yes alert Skin: COMMON NORMALS: turgor normal GENERAL SKIN EXAM: turgor normal Course Vital Signs: Vital signs: Vital Signs Pulse Rate 65 09/08/22 21:36 Respiratory Rate 21 H 09/08/22 21:36 Blood Pressure 124/70 09/08/22 21:36 Pulse Oximetry 91 09/08/22 21:36 Oxygen Delivery Me thod 09/08/22 19:32 MDM - Chest Pain Medical Decision Making Patient comes in today for complaints of midsternal chest pain started about an hour prior to arrival to the ER. On exam patient has some chest wall tenderness to palpation on the right side, and some midepigastric abdominal discomfort. Heart rates regular. Skin is warm and dry. No edema is noted in extremities. Lungs are decreased in the bases. Vital signs are normal except for some hypoxia 88% on room air. Differential diagnosis includes not limited to ACS, pneumonia, exacerbation of COPD, GERD, costochondritis. Baseline and second high-sensitivity troponin were 8 and 8.11. EKG showed no changes at 2-hour lacie. D-dimer slightly elevated 0.8, CBC and CMP were unremarkable. CTA of the chest showed no sign of pulmonary embolism or other abnormality except chronic changes and emphysema. Chest x-ray noted no acute abnormalities. Patient was treated with fentanyl 50 mcg and Ativan 1 mg for pain and anxiety. Patient resolution of symptoms. Patient was recommended to follow-up with primary care for further evaluation. Suspect patient had some musculoskeletal pain versus reflux. Patient and male and so reported understanding agreed to plan. Lab Data 09/08/22 18:31 09/08/22 18:31 Radiology Impressions Chest X-Ray 09/08/22 18: IMPRESSION: No acute findings. Chest CTA 09/08/22 18:18 IMPRESSION: 1. Negative for pulmonary embolus. 2. Coronary artery atherosclerotic calcifications. 3. Right lower lobe atelectasis. 4. Emphysematous changes. Laboratory Results WBC 7.0 10^3/uL (4.0-10.0) 09/08/22 18:31 RBC 4.49 10^6/uL (4.1-5.3) 09/08/22 18:31 Hgb 12.5 g/dL (11.5-15.3) 09/08/22 18:31 Hct 39.6 % (37.0-47.0) 09/08/22 18:31 MCV 88.2 fl (81-99) 09/08/22 18:31 MCH 27.8 pg (28.0-34.0) L 09/08/22 18:31 MCHC 31.6 g/dL (30.0-36.0) 09/08/22 18:31 RDW 14.6 % (12.1-15.1) 09/08/22 18:31 Plt Count 323 10^3/cmm (130-400) 09/08/22 18:31 MPV 12.0 fL (7.4-10.4) H 09/08/22 18:31 Neut % (Auto) 70.0 % 09/08/22 18:31 Lymph % (Auto) 19.7 % 09/08/22 18:31 [place] % (Auto) 9.1 % 09/08/22 18:31 Eos % (Auto) 0.7 % 09/08/22 18:31 Baso % (Auto) 0.4 % 09/08/22 18:31 Neut # (Auto) 4.92 10^3/uL (1.8-7.7) 09/08/22 18:31 Lymph # (Auto) 1.4 10^3/uL (0.8-4.8) 09/08/22 18:31 [place] # (Auto) 0.6 10^3/uL (0.2-0.9) 09/08/22 18:31 Eos # (Auto) 0.1 10^3/uL (0.0-0.8) 09/08/22 18:31 Baso # (Auto) 0.0 10^3/uL (0.0-0.1) 09/08/22 18:31 Nucleated RBC % (auto) 0 % 09/08/22 18:31 Nucleated RBCs # 0.0 /100WBC 09/08/22 18:31 PT 13.20 SECONDS (12.1-14.9) 09/08/22 18:31 INR 0.97 (0.8-1.2) 09/08/22 18:31 APTT 33.1 SECONDS (23.9-36.7) 09/08/22 18:31 D-Dimer 0.84 ug/mIFEU (0-0.59) H 09/08/22 18:31 Sodium 136 mmol/L (136-145) 09/08/22 18:31 Potassium 3.8 mmol/L (3.5-5.1) 09/08/22 18:31 Chloride 101 mmol/L (98-107) 09/08/22 18:31 Carbon Dioxide 24 mmol/L (22-29) 09/08/22 18:31 Anion Gap 14.8 (5-19) 09/08/22 18:31 BUN 10 mg/dL (6-20) 09/08/22 18:31 Creatinine 0.6 mg/dL (0.5-0.9) 09/08/22 18:31 GFR Calculation 104.2 mL/min (90-130) 09/08/22 18:31 Glucose 141 mg/dL (65-115) H 09/08/22 18:31 Calculated Osmolality 283 mOsm/kg (285-295) L 09/08/22 18:31 Calcium 9.8 mg/dL (8.5-10.5) 09/08/22 18:31 Total Bilirubin 0.3 mg/dL (0.15-1.2) 09/08/22 18:31 AST 17 U/L (0-32) 09/08/22 18:31 ALT 11 U/L (0-33) 09/08/22 18:31 Alkaline Phosphatase 96 U/L (35-105) 09/08/22 18:31 Troponin T Baseline 8 ng/L (0-10) 09/08/22 18:31 Troponin T 120 Minute 8.11 ng/L (0-10) 09/08/22 20:36 Delta Troponin T 0.11 ABS# (0-10) 09/08/22 20:36 NT-Pro-B Natriuret Pep 90 pg/mL (0-125) 09/08/22 18:31 Total Protein 7.4 g/dL (6.6-8.7) 09/08/22 18:31 Albumin 3.9 g/dL (3.5-5.2) 09/08/22 18:31 Globulin 3.5 g/dL (1.3-4.6) 09/08/22 18:31 EKG Data EKG 1: EKG interpretation date: 09/08/22 EKG interpretation time: 18:05 Prior EKG tracings: not available for review Interpretation: EKG shows a 76 bpm sinus rhythm, artifact is present, no ST segment elevation is noted. No ectopy is noted. No prior exam was available for comparison. EKG 2: EKG interpretation date: 09/08/22 EKG interpretation time: 20:22 Prior EKG tracings: available for review Interpretation: EKG shows sinus rhythm with a regular rate at 66 bpm. No changes are noted from prior exam. No ST elevation or ectopy is noted at this time. Anteroseptal myocardial infarction of indeterminate age remains on the EKG. Discharge Plan Discharge Patient Disposition: Home Clinical Impression: Atypical chest pain Condition: Stable Prescriptions: No Action lisinopril 5 mg tablet 5 mg PO DAILY@0900 albuterol sulfate 90 mcg/actuation aerosol powdr breath activated 2 inh INHALATION Q6H PRN (Reason: Shortness Of Breath) citalopram [Celexa] 20 mg tablet 20 mg PO DAILY@0900 atorvastatin 20 mg tablet 20 mg PO DAILY@2200 cyclobenzaprine 10 mg tablet 10 mg PO TID PRN (Reason: muscle spasm) Qty: 30 0RF (DME) Bone Growth Stimulator E0748 See Rx Instructions .Route .MEDSUPPLY Qty: 1 0RF Rx Instructions: As directed hydrocodone-acetaminophen 5-325 mg tablet 1 - 2 tab PO Q4H PRN (Reason: Postop pain) 5 Days Qty: 40 0RF furosemide 40 mg Tablet 40 mg PO DAILY PRN (Reason: Weight Gain) potassium 99 mg Tablet 99 mg PO DAILY PRN (Reason: with Lasix) Qty: 0 ibuprofen 200 mg Tablet 200 - 400 mg PO Q6H PRN (Reason: Pain) budesonide-formoterol [Symbicort] 160-4.5 mcg/actuation Hfa Aerosol Inhaler 2 puff INHALATION BID Qty: 0 omeprazole 20 mg capsule,delayed release(DR/EC) 20 mg PO DAILY Qty: 30 1RF gabapentin 600 mg tablet 900 mg PO Q6H PRN (Reason: chronic pain) Discharge Orders: Discharge ED (Routine); Ordered 09/08/22 Ordered By: Sergio Ludwig Referrals: Matias Nunez DO [Primary Care Provider] - Discharge Diet: Usual diet Discharge Activity: Increase activity as tolerated Patient Instructions: Chest Pain (ED), Opioid Safety Activity Restrictions/Additional Instructions: Follow-up with primary care in 2 days for recheck and consideration for further testing and evaluation. Continue with routine medications as directed. Return to emergency department for worsening symptoms or new concerns. Coding Level of Care Code ED Airborne Operations for Barber Fwd Exam Comprehensive
[2022-09-08 18:13] VITALS: BP 122/81; PULSE 85; RESP 22; O2SAT 88
--- NOTE | 2022-09-08 18:18 | CTR_ITS ---
PROCEDURE INFORMATION: Exam: CTA Chest With Contrast Exam date and time: 09/08/2022 6:37 PM Age: 56 years old Clinical indication: Pain; Chest pressure; Patient HX: HX low back and neck surgery per patient; Additional info: Chest pain, hypoxia, recent surgery TECHNIQUE: Imaging protocol: Computed tomographic angiography of the chest with contrast. 3D rendering (Not supervised by radiologist): MIP and/or 3D reconstructed images were created by the technologist. Radiation optimization: All CT scans at this facility use at least one of these dose optimization techniques: automated exposure control; mA and/or kV adjustment per patient size (includes targeted exams where dose is matched to clinical indication); or iterative reconstruction. Contrast material: OMNI 350; Contrast volume: 100 ml; Contrast route: INTRAVENOUS (IV); COMPARISON: CT angio chest w abd pel w con 08/08/2018 6:10 AM RADIATION DOSE METRICS: Total DLP (mGy-cm): 363.74 FINDINGS: Pulmonary arteries: Normal. No pulmonary emboli. Aorta: Unremarkable. No aortic aneurysm. No aortic dissection. Lungs: Right lower lobe atelectasis. Emphysematous changes. Pleural spaces: Unremarkable. No pneumothorax. No pleural effusion. Heart: Unremarkable. No cardiomegaly. No pericardial effusion. Coronary arteries: Coronary artery atherosclerotic calcifications. Lymph nodes: Unremarkable. No enlarged lymph nodes. Bones/joints: Unremarkable. No acute fracture. Soft tissues: Unremarkable. CT/CT angio chest PE protcl [id number] IMPRESSION: 1. Negative for pulmonary embolus. 2. Coronary artery atherosclerotic calcifications. 3. Right lower lobe atelectasis. 4. Emphysematous changes.
[2022-09-08 18:39] LABS: Basophils % 0.4 %; Eosinophils # 0.1 10^3/uL (0.0-0.8); Eosinophils % 0.7 %; Hematocrit 39.6 % (37.0-47.0); Hemoglobin 12.5 g/dL (11.5-15.3); Lymphocytes # 1.4 10^3/uL (0.8-4.8); Lymphocytes % 19.7 %; Mean Corpuscular HGB Conc 31.6 g/dL (30.0-36.0); Mean Corpuscular Hemoglobin 27.8 pg (28.0-34.0); Mean Corpuscular Volume 88.2 fl (81-99); Monocytes # 0.6 10^3/uL (0.2-0.9); Monocytes % 9.1 %; Neutrophils # 4.92 10^3/uL (1.8-7.7); Nucleated Red Blood Cells % 0 %; Platelet Count 323 10^3/cmm (130-400); Red Blood Count 4.49 10^6/uL (4.1-5.3); Red Cell Distribution Width 14.6 % (12.1-15.1)
[2022-09-08] MEDS: iohexol 350 mg/mL 500 mL Btl (per mL) IV (18:42)
[2022-09-08 18:49] LABS: INR 0.97 (0.8-1.2)
[2022-09-08 18:50] LABS: Partial Thromboplastin Time 33.1 SECONDS (23.9-36.7)
[2022-09-08 18:53] LABS: D Dimer 0.84 ug/mIFEU (0-0.59)
[2022-09-08 19:03] LABS: Troponin(5th) Baseline 8 ng/L (0-10)
[2022-09-08 19:13] LABS: Alanine Aminotransferase 11 U/L (0-33); Albumin Level 3.9 g/dL (3.5-5.2); Alkaline Phosphatase 96 U/L (35-105); Anion Gap 14.8 (5-19); Aspartate Amino Transferase 17 U/L (0-32); Blood Urea Nitrogen 10 mg/dL (6-20); Calcium 9.8 mg/dL (8.5-10.5); Carbon Dioxide 24 mmol/L (22-29); Chloride 101 mmol/L (98-107); Globulin 3.5 g/dL (1.3-4.6); Glomerular Filtration Rate 104.2 mL/min (90-130); Glucose 141 mg/dL (65-115); NT Pro B Type Natriuretic Pept 90 pg/mL (0-125); Osmolality Calculated 283 mOsm/kg (285-295); Potassium 3.8 mmol/L (3.5-5.1); Sodium 136 mmol/L (136-145); Total Bilirubin 0.3 mg/dL (0.15-1.2); Total Protein 7.4 g/dL (6.6-8.7)
[2022-09-08] MEDS: fentaNYL 50 mcg/mL INJ 2mL IVP (19:28)
[2022-09-08 19:32] VITALS: BP 117/69; PULSE 62; RESP 14; O2SAT 99
[2022-09-08] MEDS: LORazepam 2 mg/mL INJ 1 mL 1 MG IVP (19:52)
--- NOTE | 2022-09-08 20:12 | PC.NURSE ---
Pt became short of breath and diaphoretic. Pt stated she was having chest pain and could not breathe . Vani notified. Ativan ordered and given. Pt removed O2 and spo2 dropped to 83%. NC O2 put back on patient and her spo2 returned to mid 90's. Pt is calm, but laying backwards in the bed.
--- NOTE | 2022-09-08 20:13 | ECG_ITS ---
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
[2022-09-08 21:19] LABS: Troponin 5 2HR 8.11 ng/L (0-10)
[2022-09-08 21:23] LABS: Troponin 5 2HR Delta 0.11 ABS# (0-10)
[2022-09-08 21:36] VITALS: BP 124/70; PULSE 65; RESP 21; O2SAT 91
== END 2022-09-08 21:35 | disposition home or self-care (01) ==
PROVIDERS: Emergency Provider Nurse Practitioner Family; PCP Internal Medicine
DX: R07.89 Other chest pain (principal); Z87.891 Personal history of nicotine dependence; J44.9 Chronic obstructive pulmonary disease, unspecified; E78.5 Hyperlipidemia, unspecified
CPT/HCPCS: 71045; 71275; 80053; 83880; 84484; 85025; 85378; 85610; 85730; 93005; 96374; 96375; 99285; J2060; J3010; Q9967

== ENCOUNTER 2022-09-09 09:24 | Emergency (ER) | payer MEDICARE, SELFPAY ==
--- NOTE | 2022-09-09 09:25 | XRR_ITS ---
PROCEDURE INFORMATION: Exam: XR Chest Exam date and time: 09/09/2022 9:41 AM Age: 56 years old Clinical indication: Sternal or substernal pain; Prior surgery; Surgery type: Spinal fusion; Additional info: Cp TECHNIQUE: Imaging protocol: Radiologic exam of the chest. Views: 1 view. Total images: 4 COMPARISON: CR (CHEST, ) 09/08/2022 6:05 PM FINDINGS: Lungs: Unremarkable. No consolidation. Pleural spaces: Unremarkable. No pleural effusion. No pneumothorax. Heart/Mediastinum: Unremarkable. No cardiomegaly. Bones/joints: Partially visualized spinal fusion hardware noted. XR/XR chest 1V portable [id number] IMPRESSION: No acute cardiopulmonary process.
--- NOTE | 2022-09-09 09:25 | ECG_ITS ---
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: : 1965 Requested By: Komal Lantigua Order Number: [id number] Reading MD: Marshall Beverly Measurements Intervals [place] Rate: 62 P: 80 [place]: 169 QRS: 88 QRSD: 79 T: 78 QT: 396 QTc: 405 Interpretive Statements SINUS RHYTHM ANTEROSEPTAL MYOCARDIAL INFARCTION , OF INDETERMINATE AGE [40+ ms Q WAVE IN V1-V4] Compared to ECG 09/08/2022 20:13:36 No significant changes Electronically Signed On 09-09-2022 15:06:07 ACCOUNT SERVICES REPRESENTATIVE by Marshall Beverly [id number]
[2022-09-09 09:28] VITALS: BP 162/91; PULSE 72; RESP 18; O2SAT 96
--- NOTE | 2022-09-09 09:30 | PC.NURSE ---
PT PLACED ON CONTINUOUS NIBP, SPO2, AND CM
--- NOTE | 2022-09-09 09:33 | W.ED.CHESTPA ---
HPI - Chest Pain General: Chief Complaint: Chest Pain Stated Complaint: chest pain Time Seen by Provider: 09/09/22 09:26 Source: patient Mode of arrival: ambulatory Limitations: no limitations History of Present Illness: 56-year-old female states she been having chest pain over the last 2 days she does have a history of anxiety states she been feeling extremely anxious and does appear anxious in the room seen here yesterday had normal work-up including a normal CT of her chest states that she became anxious again today and her pain is worsened its in the center of her chest that sharp in nature denies any fever she is short of breath with some tachypnea as well Associated symptoms: Deny abdominal pain, dyspnea, fever(s), nausea or vomiting Review of Systems Const: Denies: fever(s), chills, body aches or change in appetite Eyes: Denies: blurry vision or eye discomfort ENMT: Denies: throat pain or dental pain Card: Reports: chest pain Resp: Denies: dyspnea GI: Denies: abdominal pain, nausea, vomiting or diarrhea : Denies: dysuria Musc: Denies: neck pain or back pain Skin/Breast: Denies: rash Neuro: Denies: headache(s) Psych: Denies: depression Venkata/Lymph: Denies: easy bruising All/Imm: Denies: urticaria PFSH ED PFSH: Medical History Cervical post-laminectomy syndrome Chronic pain Colon polyps COPD (chronic obstructive pulmonary disease) Depression Diverticulosis GERD (gastroesophageal reflux disease) Hiatal hernia 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 Espinosa C3-C7 ACDFF History of decompression of median nerve (04/20/13) open release of the median nerve at the wrist on the right, reexploration. History of decompression of ulnar nerve (~2009) bilateral History of hysterectomy History of lumbar fusion (07/28/18) L4-L5 posterior lumbar interbody fusion with conversion of chronis L5-S1 fixation to an L4-L5-S1 pedicle screw alyse fixation construct. History of lumbar spinal fusion History of lumbar surgery (04/14/15) Dr. Espinosa, Right L5-S1 laminotomy/foraminotomy/partial facetectomy, reexploration. History of lumbar surgery (12/26/15) L5-S1 laminectomy/fusion/resection of recurrent epidural synovial cyst. History of tubal ligation Family History Mother Heart disease Hypertension Kidney disease Sister Hypertension Social History Smoking and tobacco status: former smoker Second hand smoke exposure: No Alcohol intake: never Household members: spouse Marital status: Current occupational status: disabled History of recent travel: No Course Vital Signs: Vital signs: Vital Signs Pulse Rate 65 09/09/22 09:34 Respiratory Rate 16 09/09/22 09:34 Blood Pressure 119/73 09/09/22 09:34 Pulse Oximetry 95 09/09/22 09:34 Oxygen Delivery Me thod 09/09/22 09:28 MDM - Chest Pain Medical Decision Making Patient presents here with chest pain and anxiety believe her chest pain likely from her anxiety she feels much improved here after Ativan she had a work-up yesterday including CT angio that was normal her troponin here is negative EKG is normal she is stable for discharge she is to follow-up with PCP and return if worsening she understands agrees to plan. Lab Data 09/09/22 09:37 09/09/22 09:37 Radiology Impressions Chest X-Ray 09/09/22 09:25 IMPRESSION: No acute cardiopulmonary process. Laboratory Results WBC 6.2 10^3/uL (4.0-10.0) 09/09/22 09:37 RBC 4.44 10^6/uL (4.1-5.3) 09/09/22 09:37 Hgb 12.2 g/dL (11.5-15.3) 09/09/22 09:37 Hct 39.8 % (37.0-47.0) 09/09/22 09:37 MCV 89.6 fl (81-99) 09/09/22 09:37 MCH 27.5 pg (28.0-34.0) L 09/09/22 09:37 MCHC 30.7 g/dL (30.0-36.0) 09/09/22 09:37 RDW 14.8 % (12.1-15.1) 09/09/22 09:37 Plt Count 307 10^3/cmm (130-400) 09/09/22 09:37 MPV 10.8 fL (7.4-10.4) H 09/09/22 09:37 Neut % (Auto) 72.7 % 09/09/22 09:37 Lymph % (Auto) 14.9 % 09/09/22 09:37 [place] % (Auto) 11.0 % 09/09/22 09:37 Eos % (Auto) 0.6 % 09/09/22 09:37 Baso % (Auto) 0.6 % 09/09/22 09:37 Neut # (Auto) 4.50 10^3/uL (1.8-7.7) 09/09/22 09:37 Lymph # (Auto) 0.9 10^3/uL (0.8-4.8) 09/09/22 09:37 [place] # (Auto) 0.7 10^3/uL (0.2-0.9) 09/09/22 09:37 Eos # (Auto) 0.0 10^3/uL (0.0-0.8) 09/09/22 09:37 Baso # (Auto) 0.0 10^3/uL (0.0-0.1) 09/09/22 09:37 Nucleated RBC % (auto) 0 % 09/09/22 09:37 Nucleated RBCs # 0.0 /100WBC 09/09/22 09:37 PT 13.40 SECONDS (12.1-14.9) 09/09/22 09:37 INR 0.99 (0.8-1.2) 09/09/22 09:37 Sodium 135 mmol/L (136-145) L 09/09/22 09:37 Potassium 4.2 mmol/L (3.5-5.1) 09/09/22 09:37 Chloride 99 mmol/L (98-107) 09/09/22 09:37 Carbon Dioxide 26 mmol/L (22-29) 09/09/22 09:37 Anion Gap 14.2 (5-19) 09/09/22 09:37 BUN 10 mg/dL (6-20) 09/09/22 09:37 Creatinine 0.6 mg/dL (0.5-0.9) 09/09/22 09:37 GFR Calculation 104.2 mL/min (90-130) 09/09/22 09:37 Glucose 111 mg/dL (65-115) 09/09/22 09:37 Calculated Osmolality 280 mOsm/kg (285-295) L 09/09/22 09:37 Calcium 9.4 mg/dL (8.5-10.5) 09/09/22 09:37 Total Bilirubin 0.3 mg/dL (0.15-1.2) 09/09/22 09:37 AST 18 U/L (0-32) 09/09/22 09:37 ALT 11 U/L (0-33) 09/09/22 09:37 Alkaline Phosphatase 98 U/L (35-105) 09/09/22 09:37 Troponin T Baseline 10 ng/L (0-10) 09/09/22 09:37 Total Protein 7.0 g/dL (6.6-8.7) 09/09/22 09:37 Albumin 4.2 g/dL (3.5-5.2) 09/09/22 09:37 Globulin 2.8 g/dL (1.3-4.6) 09/09/22 09:37 EKG Data EKG 1: I personally reviewed and interpreted this EKG as follows: EKG interpretation date: 09/09/22 EKG interpretation time: 09:39 Interpretation: nsr hr [address] or t wave abnormalities qrs 79 qtc 402 Discharge Plan Discharge Patient Disposition: Home Clinical Impression: Chest pain, Anxiety Condition: Stable Prescriptions: New Vistaril 50 mg capsule 50 mg PO Q8H PRN (Reason: anxiety) Qty: 14 0RF No Action lisinopril 5 mg tablet 5 mg PO DAILY@0900 albuterol sulfate 90 mcg/actuation aerosol powdr breath activated 2 inh INHALATION Q6H PRN (Reason: Shortness Of Breath) citalopram [Celexa] 20 mg tablet 20 mg PO DAILY@0900 atorvastatin 20 mg tablet 20 mg PO DAILY@2200 cyclobenzaprine 10 mg tablet 10 mg PO TID PRN (Reason: muscle spasm) Qty: 30 0RF (DME) Bone Growth Stimulator E0748 See Rx Instructions .Route .MEDSUPPLY Qty: 1 0RF Rx Instructions: As directed hydrocodone-acetaminophen 5-325 mg tablet 1 - 2 tab PO Q4H PRN (Reason: Postop pain) 5 Days Qty: 40 0RF furosemide 40 mg Tablet 40 mg PO DAILY PRN (Reason: Weight Gain) potassium 99 mg Tablet 99 mg PO DAILY PRN (Reason: with Lasix) Qty: 0 ibuprofen 200 mg Tablet 200 - 400 mg PO Q6H PRN (Reason: Pain) budesonide-formoterol [Symbicort] 160-4.5 mcg/actuation Hfa Aerosol Inhaler 2 puff INHALATION BID Qty: 0 omeprazole 20 mg capsule,delayed release(DR/EC) 20 mg PO DAILY Qty: 30 1RF gabapentin 600 mg tablet 900 mg PO Q6H PRN (Reason: chronic pain) Discharge Orders: Discharge ED (Routine); Ordered 09/09/22 Ordered By: Komal Lantigua Referrals: Matias Nunez DO [Primary Care Provider] - Discharge Diet: Advance as tolerated Discharge Activity: Resume usual activity Patient Instructions: Chest Pain (ED), Anxiety (ED) Coding Level of Care Code ED Cisco Network Engineer for Barber Henning
[2022-09-09 09:34] VITALS: BP 119/73; PULSE 65; RESP 16; O2SAT 95
[2022-09-09 09:47] LABS: Basophils % 0.6 %; Eosinophils % 0.6 %; Hematocrit 39.8 % (37.0-47.0); Hemoglobin 12.2 g/dL (11.5-15.3); Lymphocytes # 0.9 10^3/uL (0.8-4.8); Lymphocytes % 14.9 %; Mean Corpuscular HGB Conc 30.7 g/dL (30.0-36.0); Mean Corpuscular Hemoglobin 27.5 pg (28.0-34.0); Mean Corpuscular Volume 89.6 fl (81-99); Mean Platelet Volume 10.8 fL (7.4-10.4); Monocytes # 0.7 10^3/uL (0.2-0.9); Neutrophils % 72.7 %; Nucleated Red Blood Cells % 0 %; Platelet Count 307 10^3/cmm (130-400); Red Blood Count 4.44 10^6/uL (4.1-5.3); Red Cell Distribution Width 14.8 % (12.1-15.1); White Blood Count 6.2 10^3/uL (4.0-10.0)
[2022-09-09] MEDS: aspirin 81 mg Chew Tablet 324 MG PO (09:50)
[2022-09-09] MEDS: LORazepam 1 mg Tablet PO (09:50)
[2022-09-09 10:00] VITALS: BP 134/81; PULSE 69; RESP 16; O2SAT 95
[2022-09-09 10:12] LABS: INR 0.99 (0.8-1.2)
[2022-09-09 10:27] LABS: Troponin(5th) Baseline 10 ng/L (0-10)
[2022-09-09 10:31] LABS: Alanine Aminotransferase 11 U/L (0-33); Albumin Level 4.2 g/dL (3.5-5.2); Alkaline Phosphatase 98 U/L (35-105); Anion Gap 14.2 (5-19); Aspartate Amino Transferase 18 U/L (0-32); Blood Urea Nitrogen 10 mg/dL (6-20); Calcium 9.4 mg/dL (8.5-10.5); Carbon Dioxide 26 mmol/L (22-29); Chloride 99 mmol/L (98-107); Globulin 2.8 g/dL (1.3-4.6); Glomerular Filtration Rate 104.2 mL/min (90-130); Glucose 111 mg/dL (65-115); Osmolality Calculated 280 mOsm/kg (285-295); Potassium 4.2 mmol/L (3.5-5.1); Sodium 135 mmol/L (136-145); Total Bilirubin 0.3 mg/dL (0.15-1.2)
[2022-09-09 10:38] VITALS: BP 117/63; PULSE 61; RESP 16; O2SAT 98
[2022-09-09 10:52] VITALS: BP 117/63; PULSE 60; RESP 16; O2SAT 95
== END 2022-09-09 10:55 | disposition home or self-care (01) ==
PROVIDERS: Emergency Provider Emergency Medicine; PCP Internal Medicine
DX: R07.9 Chest pain, unspecified (principal); F41.9 Anxiety disorder, unspecified; Z87.891 Personal history of nicotine dependence; J44.9 Chronic obstructive pulmonary disease, unspecified; E78.5 Hyperlipidemia, unspecified
CPT/HCPCS: 71045; 80053; 84484; 85025; 85610; 93005; 99285

== ENCOUNTER → 2022-10-02 10:44 | Outpatient (BNVA) | payer MEDICARE, OTHER, SELFPAY | PROVIDERS: PCP Internal Medicine; Visit Provider Orthopaedic Surgery | DX: Z47.89 Encounter for other orthopedic aftercare (principal); Z98.1 Arthrodesis status | CPT/HCPCS: 72100; 99024 ==

== ENCOUNTER 2022-11-13 06:45 | Outpatient (CLI) | payer MEDICARE, OTHER, SELFPAY ==
--- NOTE | 2022-11-13 07:15 | MR_ITS ---
WS: [id number] MRI CERVICAL SPINE NONCONTRAST HISTORY: neck pain COMPARISON: 06/25/2016 Technique: Multiplanar, multisequence noncontrast imaging of the cervical spine. Straightening of the normal cervical lordosis. Fusion hardware extends from C3 through C7. Signal within the cord is normal. Craniocervical junction, C1 and C2 relationship, odontoid process and soft tissues are normal. C2-C3: Very tiny central disc protrusion. Minimal RIGHT foraminal stenosis. Mild facet joint arthriti s encroaching along the posterior thecal sac to abut the posterior cord. C3-C4: No stenosis. C4-C5: No stenosis or disc protrusions. C5-C6: Mild osteophytic ridging. No disc protrusions or stenosis. C6-C7: Mild osteophytic ridging with mild bilateral foraminal stenosis. Nerve roots are being displac ed which is probably related to osteophyte disease. C7-T1: Osteophytic ridging with mild bilateral foraminal stenosis, LEFT greater than RIGHT. Suspect a very small central disc protrusion also. Paraspinal soft tissue are normal. MR/MR cervical spin wo con* [id number] IMPRESSION: 1. Status post anterior cervical fusion extending from C3 to C7. No complicati ons are evident. 2. Mild central stenosis at C2-3. There is a small central disc protrusion an d facet joint arthritis encroaching into the posterior thecal sac. 3. Mild bilateral foraminal stenosis at C6-7 and C7-T1.
== END 2022-11-13 06:46 | disposition home or self-care (01) ==
LOC: RAD 06:46
PROVIDERS: PCP Internal Medicine; Visit Provider Orthopaedic Surgery
DX: M43.22 Fusion of spine, cervical region (principal); Z98.1 Arthrodesis status; M48.02 Spinal stenosis, cervical region; M50.21 Other cervical disc displacement, high cervical region; M47.812 Spondylosis without myelopathy or radiculopathy, cervical region
CPT/HCPCS: 72141

== ENCOUNTER → 2022-11-15 08:36 | Outpatient (BNVA) | payer OTHER, MEDICARE, SELFPAY | PROVIDERS: PCP Internal Medicine; Visit Provider Orthopaedic Surgery | DX: M47.22 Other spondylosis with radiculopathy, cervical region (principal) | CPT/HCPCS: 99214 ==

== ENCOUNTER → 2022-12-11 10:45 | Outpatient (BNVA) | payer MEDICARE, OTHER, SELFPAY | PROVIDERS: PCP Internal Medicine; Visit Provider Anesthesiology Pain Medicine | DX: M54.2 Cervicalgia (principal); M54.50 Low back pain, unspecified; M96.1 Postlaminectomy syndrome, not elsewhere classified; M19.90 Unspecified osteoarthritis, unspecified site; M25.561 Pain in right knee | CPT/HCPCS: 99214 ==

== ENCOUNTER → 2022-12-27 08:49 | Outpatient (BNVA) | payer MEDICARE, OTHER, SELFPAY | PROVIDERS: PCP Internal Medicine; Visit Provider Anesthesiology Pain Medicine | DX: M79.18 Myalgia, other site (principal); M54.2 Cervicalgia; M54.50 Low back pain, unspecified; M25.561 Pain in right knee; M96.1 Postlaminectomy syndrome, not elsewhere classified; M19.90 Unspecified osteoarthritis, unspecified site | CPT/HCPCS: 20553; 99213 ==

== ENCOUNTER → 2023-01-01 11:08 | Outpatient (BNVA) | payer MEDICARE, OTHER, SELFPAY | PROVIDERS: PCP Internal Medicine; Visit Provider Orthopaedic Surgery | DX: M47.22 Other spondylosis with radiculopathy, cervical region (principal); Z98.1 Arthrodesis status | CPT/HCPCS: 72100; 99214 ==

== ENCOUNTER → 2023-03-12 08:35 | Outpatient (BNVA) | payer MEDICARE, OTHER, SELFPAY | PROVIDERS: PCP Internal Medicine; Visit Provider Orthopaedic Surgery | DX: M48.062 Spinal stenosis, lumbar region with neurogenic claudication (principal) | CPT/HCPCS: 72100; 99214 ==

== ENCOUNTER 2023-05-09 08:44 | Outpatient (CLI) | payer MEDICARE, OTHER, SELFPAY ==
--- NOTE | 2023-05-09 08:45 | MR_ITS ---
WS: [id number] MRI LUMBAR SPINE NONCONTRAST TECHNIQUE: Sagittal T1, T2 and STIR imaging. Axial T1 and T2 imaging. CLINICAL INFORMATION: back pain COMPARISON: 2021 FINDINGS: Mild lumbar curve. No acute compression. Pedicle screw fixation L3-S2. Additional fusion has been per formed compared to 05/08/2022. Associated laminectomy defects. Disc space narrowing worse at L3-4. Sli ght anterolisthesis L5 on S1. L1-L2: Normal. L2-L3: Tiny bilateral foraminal protrusions with mild bilateral foraminal narrowing. Spinal canal is patent. Mild facet arthropathy. L3-L4: Disc space narrowing with endplate degenerative changes. Slight retrolisthesis. Mild left and no significant right foraminal narrowing. L4-L5: Pedicle screw fixation with interbody fusion. Spinal canal and foramen are patent. Mild facet arthropathy. L5-S1: Mild annular bulging. Mild facet arthropathy. Mild left foraminal narrowing. Prior postoperative changes cervical spine fusion. Visualized pelvic bony structures: Normal. Paravertebral soft tissues: Normal. IMPRESSION: 1. Mild lumbar curve. No acute compression 2. Pedicle screw fixation L3-S2 with interbody fusion grafts 3. Disc base narrowing worst at L3-4 with slight retrolisthesis. 4. Tiny bilateral foraminal protrusions L2-3 with mild bilateral foraminal narrowing. 5. Mild left L3-4 bony foraminal narrowing. 6. Spinal canal decompressed L3-L5. 7. No other acute findings.
== END 2023-05-09 08:45 | disposition home or self-care (01) ==
PROVIDERS: PCP Internal Medicine; Visit Provider Orthopaedic Surgery
DX: M48.062 Spinal stenosis, lumbar region with neurogenic claudication (principal)
CPT/HCPCS: 72148

== ENCOUNTER → 2023-05-23 08:55 | Outpatient (BNVA) | payer MEDICARE, OTHER, SELFPAY | PROVIDERS: PCP Internal Medicine; Visit Provider Orthopaedic Surgery | DX: M48.062 Spinal stenosis, lumbar region with neurogenic claudication (principal) | CPT/HCPCS: 99214 ==

== ENCOUNTER → 2023-07-10 09:28 | Outpatient (BNVA) | payer MEDICARE, OTHER, SELFPAY | PROVIDERS: PCP Internal Medicine; Visit Provider Orthopaedic Surgery | DX: M47.22 Other spondylosis with radiculopathy, cervical region (principal) | CPT/HCPCS: 72040; 99213 ==

== ENCOUNTER 2023-07-18 10:57 | Observation (INO) | payer MEDICARE, OTHER, SELFPAY ==
[2023-07-18] VITALS (13 sets, daily range): BP systolic 103–166; BP diastolic 60–93; PULSE 48–67; RESP 15–18; TEMP 36.4; O2SAT 97–100; BMI 25.7
--- NOTE | 2023-07-18 10:59 | CT_ITS ---
WS: [id number] CT HEAD NONCONTRAST HISTORY: Symptoms of acute stroke TECHNIQUE: Contiguous axial imaging performed through the brain in 3.0 mm imaging. Bone and soft tiss ue windows. Sagittal and coronal reformats reviewed. All CT scans at [facility] use at least one of these dose optimization techniques: automated exposure control; mA and/or kV adjustment per pa tient size (includes targeted exams where dose is matched to clinical indication); or iterative recon struction. DLP: 996.45 mGy COMPARISON: 08/08/2018 No acute intracranial hemorrhage, midline shift or mass effect. No atrophy or prior infarcts or herniation. Mild small vessel ischemic disease. Ventricles: Normal size with no hydrocephalus. No inferior displacement of the cerebellar tonsils. Paranasal sinuses: As visualized are clear. Mastoid air cells: Well pneumatized. Calvarium and scalp: Skull is intact with no soft tissue edema or swelling. IMPRESSION: 1. No acute intracranial hemorrhage or edema. 2. Mild small vessel ischemic disease. Notified Pelon Fulton MD at 07/18/2023 11:12 AM.
--- NOTE | 2023-07-18 10:59 | ECG_ITS ---
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 Measurements Intervals [place] Rate: 55 P: -38 [place]: 126 QRS: 79 QRSD: 85 T: 70 QT: 411 QTc: 396 Interpretive Statements SINUS BRADYCARDIA LOW QRS VOLTAGE IN PRECORDIAL LEADS [QRS DEFLECTION < 1.0 mV IN CHEST LEADS] SEPTAL MYOCARDIAL INFARCTION , PROBABLY OLD [40+ ms Q WAVE IN V1/V2] Compared to ECG 09/09/2022 09:39:39 Low QRS voltage now present Sinus rhythm no longer present Myocardial infarct finding still present Electronically Signed On 07-18-2023 11:30:45 CDT by Christine Bhatia M.D. [id number]
--- NOTE | 2023-07-18 10:59 | XR_ITS ---
WS: [id number] Exam: XR chest 1V portable [id number] Date/Time of Exam: 07/18/2023 10:59 AM Reason For Exam: dizzy, chest discomfort Comparison 09/09/2022 lungs are clear and fully inflated. Normal cardiomediastinal silhouette and reg ional bony elements. Hardware partially visualized in the lower C-spine. IMPRESSION: 1. Negative chest. No change.
--- NOTE | 2023-07-18 11:14 | PC.NURSE ---
Accucheck done in CT by RN was 82.
--- NOTE | 2023-07-18 11:20 | W.ED.NEUROSD ---
HPI - Neuro Symptoms/Deficit General: Chief Complaint: Neuro Symptoms/Deficit Stated Complaint: stroke alert Time Seen by Provider: 07/18/23 11:09 History of Present Illness: 57-year-old female presents to the emergency department by EMS. She was driving a car with her daughter around 10 AM. She became dizzy. She pulled the car over. She was lightheaded and reports that she does not remember specific details. Her daughter told her after she came to that she was staring and sort of slurring her words, and generally weak. EMS triggered this as a possible stroke alert. On arrival the patient's NIH is 0. Patient tells me she has been struggling with C. difficile since November 2022. She is on chronic Flagyl awaiting to go to a [facility] for more specialized treatment. She reports she has 10 or more episodes of diarrhea per day. She is unsure if this is related (e.g. dehydration). Currently she has no weakness, numbness, confusion, visual disturbance, or any other neurologic complaints. She feels a mild heartburn up around her suprasternal region and some discomfort going into her left shoulder blade. EKG was performed and does not show any active ST segment deviation. Associated symptoms: Deny headache(s), nausea, syncope or vomiting Review of Systems General: Reports: 10 or more systems reviewed and unremarkable except in HPI and below Const: Denies: fever(s), chills or body aches Eyes: Denies: change in vision ENMT: Denies: throat pain Card: Denies: edema or syncope Resp: Denies: dyspnea or productive cough GI: Denies: abdominal pain, nausea or vomiting : Denies: flank pain, dysuria or urinary frequency Musc: Denies: neck pain, extremity pain or extremity swelling Skin/Breast: Denies: rash or erythema Neuro: Denies: headache(s), numbness in extremities, weakness in extremities, lack of coordination or difficulty walking PFS ED PFSH: Medical History Cervical post-laminectomy syndrome Chronic pain Colon polyps COPD (chronic obstructive pulmonary disease) Depression Diverticulosis GERD (gastroesophageal reflux disease) Hiatal hernia Hyperlipidemia 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 Espinosa C3-C7 ACDFF History of decompression of median nerve (04/20/13) open release of the median nerve at the wrist on the right, reexploration. History of decompression of ulnar nerve (~2009) bilateral History of hysterectomy History of lumbar fusion (07/28/18) L4-L5 posterior lumbar interbody fusion with conversion of chronis L5-S1 fixation to an L4-L5-S1 pedicle screw alyse fixation construct. History of lumbar spinal fusion History of lumbar surgery (04/14/15) Dr. Espinosa, Right L5-S1 laminotomy/foraminotomy/partial facetectomy, reexploration. History of lumbar surgery (12/26/15) L5-S1 laminectomy/fusion/resection of recurrent epidural synovial cyst. History of tubal ligation Family History Mother Heart disease Hypertension Kidney disease Sister Hypertension Social History Smoking and tobacco/nicotine status: former use of tobacco/nicotine Second hand smoke exposure: No Alcohol intake: never Substance/Drug Use: never Household members: spouse Marital status: Current occupational status: disabled NIH stroke score NIHSS: Level Of Consciousness - 1a: 0 Level Of Consciousness Questions - 1b: Both Correct Level Of Consciousness Commands - 1c: Both Correct Best Gaze - 2: Normal Visual Kuhn - 3: No Visual Loss Facial Palsy - 4: Normal Motor Arm Right - 5: No Drift Motor Arm Left - 5: No Drift Motor Leg Right - 6: No Drift Motor Leg Left - 6: No Drift Limb Ataxia - 7: Absent Sensory - 8: Normal Best Language - 9: No Aphasia Dysarthia - 10: Normal Extinction And Inattention - 11: 0 Score: Total Score: 0 Physical Exam Const: COMMON NORMALS: patient oriented x3, no limitations, alert and well nourished EXAM LIMITATIONS: no altered mental status HENMT: COMMON NORMALS: normocephalic, atraumatic and external ears normal HEAD & SCALP: normocephalic and atraumatic EXTERNAL EAR: Yes external ears normal MOUTH: no muffled voice Eye: COMMON NORMALS: Equal, round and reactive pupils present, EOMs intact bilaterally, conjunctivae normal and no scleral icterus CONJUNCTIVA: Yes conjunctivae normal PUPIL: Yes Equal, round and reactive pupils present Neck/C-Spine: COMMON NORMALS: no JVD GENERAL: Yes normal visual inspection and Yes trachea midline Resp: COMMON NORMALS: normal respiratory effort, No use of accessory muscles and clear to auscultation bilaterally AUSCULTATION: clear to auscultation bilaterally Cardio: COMMON NORMALS: no JVD and regular rhythm RATE: bradycardic RHYTHM: regular rhythm GI: COMMON NORMALS: Soft to palpation and non-tender PALPATION: Yes Soft to palpation and No Guarding due to palpation present (GI) Extremity: COMMON NORMALS: normal to inspection Neuro: COMMON NORMALS: patient oriented x3, CN's II-XII intact bilaterally, moves all extremities, no focal motor deficits and no sensory deficits noted SENSORIUM/ORIENTATION: Yes alert COORDINATION/BALANCE: vasuly-no-acbc test normal and yzak-gp-palt test normal SPEECH: speech normal COORDINATION: vbtaof-fq-xunr test normal and bena-lx-uxdx test normal OTHER: Normal neurologic exam. NIH 0. Psych: COMMON NORMALS: mental status grossly normal, Normal thought process present, cooperative, normal affect and speech normal SPEECH: Yes normal speech THOUGHT PROCESS: Normal thought process present Skin: COMMON NORMALS: no rashes or lesions noted, turgor normal and no jaundice GENERAL SKIN EXAM: no rashes or lesions noted and turgor normal Course Vital Signs: Vital signs: Vital Signs Pulse Rate 48 L 07/18/23 11:33 Respiratory Rate 16 07/18/23 11:10 Blood Pressure 146/81 07/18/23 11:33 Pulse Oximetry 99 07/18/23 11:10 Oxygen Delivery Me thod Room Air 07/18/23 11:10 MDM - Neuro Symptoms/Deficit Medical Decision Making Patient presents with a near syncopal episode. This seems much less likely to be stroke. Causes of syncope are being considered higher on the differential diagnosis. Patient's history of chronic C. difficile with daily diarrhea often exceeding 10 episodes per day would be high on the list of causes. Electrolyte disturbances, dehydration, kidney injury, etc. may develop from chronic diarrhea. She had some burning in her chest radiating to her left shoulder. Other causes could include arrhythmia, hypoglycemia, seizure, acute coronary syndrome, GI bleed, other. CT head without contrast reported as negative by radiologist. EKG obtained at 11:04 AM shows a sinus bradycardia, rate 55, normal axis, normal intervals, no concerning ST segment elevations or depressions, no hyperacute T waves, no ectopy. 11:27 about 4 minutes ago, patient's nurse noted that while laying flat she had an episode of bradycardia down into the 30s. We are going to try and pull up the rhythm strip and printed. She currently has a rate of 49 which is showing sinus bradycardia on the monitor. Patient's orthostatic vital signs, labs all unremarkable. However she has remained bradycardic. Her baseline heart rate is now 50 and appears to be a sinus rhythm. It has dropped into the 40s multiple times and into the 30s once. Given the absence of other findings, this is likely what caused her to get dizzy and have a syncopal event. Therefore she will require admission to the hospital. At this time I have not been involved to identify any heart block. Considerations would include intermittent heart block, sick sinus syndrome. She does not take beta-blockers or calcium channel blockers. Discussed with Dr. Streeter for obs admission to [facility] floor. I explained all of this to the patient and 3 family members who are in agreement with the plan. Lab Data 07/18/23 11:21 07/18/23 11:21 Laboratory Results WBC 8.06 10^3/uL (3.29-11.43) 07/18/23 11:21 RBC 5.13 10^6/uL (3.85-5.65) 07/18/23 11:21 Hgb 14.80 g/dL (11.27-16.99) 07/18/23 11:21 Hct 46.0 % (36-47) 07/18/23 11:21 MCV 89.7 fl (85-98) 07/18/23 11:21 MCH 28.8 pg (27-33) 07/18/23 11:21 MCHC 32.2 g/dL (30-55) 07/18/23 11:21 RDW 15.9 % (12.1-15.1) H 07/18/23 11:21 Plt Count 241 10^3/cmm (157-399) 07/18/23 11:21 MPV 11.6 fL (7.4-10.4) H 07/18/23 11:21 Neut % (Auto) 75.2 % 07/18/23 11:21 Lymph % (Auto) 13.3 % 07/18/23 11:21 Polk % (Auto) 9.8 % 07/18/23 11:21 Eos % (Auto) 1.0 % 07/18/23 11:21 Baso % (Auto) 0.6 % 07/18/23 11:21 Neut # (Auto) 6.06 10^3/uL (1.8-7.7) 07/18/23 11:21 Lymph # (Auto) 1.1 10^3/uL (0.8-4.8) 07/18/23 11:21 Polk # (Auto) 0.8 10^3/uL (0.2-0.9) 07/18/23 11:21 Eos # (Auto) 0.1 10^3/uL (0.0-0.8) 07/18/23 11:21 Baso # (Auto) 0.1 10^3/uL (0.0-0.1) 07/18/23 11:21 Nucleated RBC % (auto) 0 % 07/18/23 11:21 Nucleated RBCs # 0.0 /100WBC 07/18/23 11:21 PT 13.20 SECONDS (12.1-14.9) 07/18/23 11:21 INR 0.98 (0.8-1.2) 07/18/23 11:21 APTT 34.0 SECONDS (23.9-36.7) 07/18/23 11:21 Sodium 136 mmol/L (136-145) 07/18/23 11:21 Potassium 4.5 mmol/L (3.5-5.1) 07/18/23 11:21 Chloride 101 mmol/L (98-107) 07/18/23 11:21 Carbon Dioxide 27 mmol/L (22-29) 07/18/23 11:21 Anion Gap 12.5 (5-19) 07/18/23 11:21 BUN 8 mg/dL (6-20) 07/18/23 11:21 Creatinine 0.7 mg/dL (0.5-0.9) 07/18/23 11:21 GFR Calculation 86.9 mL/min (90-130) L 07/18/23 11:21 Glucose 85 mg/dL (65-115) 07/18/23 11:21 Calculated Osmolality 280 mOsm/kg (285-295) L 07/18/23 11:21 Calcium 9.3 mg/dL (8.5-10.5) 07/18/23 11:21 Magnesium 2.2 mg/dL (1.7-2.3) 07/18/23 11:21 Total Bilirubin 0.3 mg/dL (0.15-1.2) 07/18/23 11:21 AST 15 U/L (0-32) 07/18/23 11:21 ALT 8 U/L (0-33) 07/18/23 11:21 Alkaline Phosphatase 69 U/L (35-105) 07/18/23 11:21 Troponin T Baseline < 6 ng/L (0-10) 07/18/23 11:21 Total Protein 6.6 g/dL (6.6-8.7) 07/18/23 11:21 Albumin 4.2 g/dL (3.5-5.2) 07/18/23 11:21 Globulin 2.4 g/dL (1.3-4.6) 07/18/23 11:21 XR interpretation done by ED provider, pending radiology final review Discharge Plan Discharge Patient Disposition: Placed in Observation Clinical Impression: Bradycardia, Syncope, History of Clostridium difficile infection Coding Level of Care Code ED 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
[2023-07-18 11:29] LABS: Basophils # 0.1 10^3/uL (0.0-0.1); Basophils % 0.6 %; Eosinophils # 0.1 10^3/uL (0.0-0.8); Lymphocytes # 1.1 10^3/uL (0.8-4.8); Lymphocytes % 13.3 %; Mean Corpuscular HGB Conc 32.2 g/dL (30-55); Mean Corpuscular Hemoglobin 28.8 pg (27-33); Mean Corpuscular Volume 89.7 fl (85-98); Mean Platelet Volume 11.6 fL (7.4-10.4); Monocytes # 0.8 10^3/uL (0.2-0.9); Monocytes % 9.8 %; Neutrophils # 6.06 10^3/uL (1.8-7.7); Neutrophils % 75.2 %; Nucleated Red Blood Cells % 0 %; Platelet Count 241 10^3/cmm (157-399); Red Blood Count 5.13 10^6/uL (3.85-5.65); Red Cell Distribution Width 15.9 % (12.1-15.1); White Blood Count 8.06 10^3/uL (3.29-11.43)
[2023-07-18 11:48] LABS: INR 0.98 (0.8-1.2)
[2023-07-18 11:54] LABS: Troponin(5th) Baseline < 6 ng/L (0-10)
[2023-07-18 11:55] LABS: Alanine Aminotransferase 8 U/L (0-33); Albumin Level 4.2 g/dL (3.5-5.2); Alkaline Phosphatase 69 U/L (35-105); Anion Gap 12.5 (5-19); Aspartate Amino Transferase 15 U/L (0-32); Blood Urea Nitrogen 8 mg/dL (6-20); Calcium 9.3 mg/dL (8.5-10.5); Carbon Dioxide 27 mmol/L (22-29); Chloride 101 mmol/L (98-107); Globulin 2.4 g/dL (1.3-4.6); Glomerular Filtration Rate 86.9 mL/min (90-130); Glucose 85 mg/dL (65-115); Magnesium 2.2 mg/dL (1.7-2.3); Osmolality Calculated 280 mOsm/kg (285-295); Potassium 4.5 mmol/L (3.5-5.1); Sodium 136 mmol/L (136-145); Total Bilirubin 0.3 mg/dL (0.15-1.2); Total Protein 6.6 g/dL (6.6-8.7)
[2023-07-18] MEDS: sodium chloride 0.9% 1,000 ML 999 ML IV (12:11)
--- NOTE | 2023-07-18 13:07 | ECG_ITS ---
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 Measurements Intervals [place] Rate: 53 P: 66 MO: 172 QRS: 73 QRSD: 85 T: 51 QT: 435 QTc: 409 Interpretive Statements SINUS BRADYCARDIA SEPTAL MYOCARDIAL INFARCTION , OF INDETERMINATE AGE [40+ ms Q WAVE IN V1/V2] Compared to ECG 07/18/2023 11:04:17 No significant changes Electronically Signed On 07-18-2023 16:44:52 CDT by Christine Bhatia M.D. [id number]
--- NOTE | 2023-07-18 13:54 | PM.HP ---
Providers/Chief Complaint Admitting Physician: Shawanda Streeter MD Primary Care Provider: Matias Nunez DO Chief Complaint: stroke alert History of Present Illness Janel Mesa is a 57 year old female with history of COPD, neuropathy, sinus bradycardia, CHF, presented today with chief complaint of presyncopal event. Patient stating that she was driving the car when she felt dizzy she pulled over and get out of the car and experienced presyncopal events. She was brought in code stroke was called NIH was 0, there was concern for bradycardia, previous event monitor Holter monitor reading was reviewed she has history of sinus bradycardia, she is currently on metronidazole for her C. difficile she is planning to go to [place] for possible fecal transplant, Review of Systems Const: Denies: fever(s) Eyes: Denies: change in vision ENMT: Denies: throat pain Card: Reports: pre-syncope Resp: Denies: dyspnea GI: Reports: diarrhea : Denies: flank pain Medications/Allergies Home Medications Medication Instructions Recorded Confirmed Last Taken Type albuterol sulfate 90 mcg/actuation 2 inh inhalation Q6H PRN Shortness 12/07/19 07/18/23 07/11/22 History breath activated powder inhaler Of Breath atorvastatin 20 mg tablet 20 mg PO BEDTIME 12/07/19 07/18/23 07/10/22 History lisinopril 5 mg tablet 5 mg PO DAILY@0900 12/07/19 07/18/23 07/10/22 History budesonide-formoterol HFA 160 2 puff inhalation BID ##0 02/17/21 07/18/23 07/11/22 History mcg-4.5 mcg/actuation aerosol inhaler (Symbicort) furosemide 40 mg tablet 40 mg PO DAILY PRN Weight Gain 02/17/21 07/18/23 02/16/21 History ibuprofen 200 mg tablet 200 - 400 mg PO Q6H PRN Pain 02/17/21 07/18/23 02/17/21 History gabapentin 600 mg tablet 300 mg PO Q6H PRN chronic pain 07/02/22 07/18/23 07/10/22 History Bone Growth Stimulator E0748 #1 ea 07/13/22 07/18/23 Unknown Rx gabapentin 300 mg capsule 300 mg PO QID 07/18/23 07/18/23 Unknown History hydrocodone 5 mg-acetaminophen 325 1 tab PO DAILY PRN Postop pain 07/18/23 07/18/23 Unknown History mg tablet metronidazole 500 mg tablet See Rx Instructions .Route .COMPLEX 07/18/23 07/18/23 Unknown History potassium citrate 99 mg capsule 99 mg PO DAILY PRN unknown 07/18/23 07/18/23 Unknown History trazodone 50 mg tablet 25 - 50 mg PO BEDTIME PRN Sleep 07/18/23 07/18/23 Unknown History Allergies Allergy/AdvReac Type Severity Reaction Status Date / Time No Known Allergies Allergy Verified 07/10/23 09:34 PFSH Acute PFSH: Medical History Cervical post-laminectomy syndrome Chronic pain Colon polyps COPD (chronic obstructive pulmonary disease) Depression Diverticulosis GERD (gastroesophageal reflux disease) Hiatal hernia 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 Espinosa C3-C7 ACDFF History of decompression of median nerve (04/20/13) open release of the median nerve at the wrist on the right, reexploration. History of decompression of ulnar nerve (~2009) bilateral History of hysterectomy History of lumbar fusion (07/28/18) L4-L5 posterior lumbar interbody fusion with conversion of chronis L5-S1 fixation to an L4-L5-S1 pedicle screw alyse fixation construct. History of lumbar spinal fusion History of lumbar surgery (04/14/15) Dr. Espinosa, Right L5-S1 laminotomy/foraminotomy/partial facetectomy, reexploration. History of lumbar surgery (12/26/15) L5-S1 laminectomy/fusion/resection of recurrent epidural synovial cyst. History of tubal ligation Family History Mother Heart disease Hypertension Kidney disease Sister Hypertension Social History Smoking and tobacco/nicotine status: former use of tobacco/nicotine Second hand smoke exposure: No Alcohol intake: never Substance/Drug Use: never Household members: spouse Marital status: Current occupational status: disabled Vitals/I&O/Wt Last Vital Signs Pulse 57 L 07/18/23 13:30 Resp 17 07/18/23 13:30 BP 146/73 07/18/23 13:30 Pulse Ox 99 07/18/23 13:30 O2 Del Method Room Air 07/18/23 13:30 Weight last 48 hrs Weight 63.957 kg Physical Exam Narrative: Pleasant cooperative GCS 15 NIH 0 Euvolemic No audible stridor or wheezing Good spirits Nonfocal neuro exam Pleasant and cooperative Dry skin Able to walk without any difficulty Data 07/18/23 11:21 07/18/23 11:21 A&P Assessment and plan (1) Bradycardia: (2) Syncope: (3) History of Clostridium difficile infection: (4) Cervical spondylosis with radiculopathy: Plan Presyncopal event Monitor overnight on telemetry Previous Holter monitor did show sinus bradycardia Avoid AV christine blocking agent Check carotid Doppler and echo Most likely patient will be able to go home tomorrow Seizure less likely Requested D-dimer Continue gabapentin for cervical radiculopathy Continue DuoNeb for her COPD No acute exacerbation For loose stools she has history of C. difficile continue metronidazole Full code Regular diet Attestations Medical Necessity Statement*: Planning to discharge patient within 24 hours, anticipating less than 2 midnights in the hospital Diagnoses Bradycardia R00.1 Syncope R55 History of Clostridium difficile infection Z86.19 Cervical spondylosis with radiculopathy M47.22
[2023-07-18 14:20] LABS: Troponin 5 2HR Delta 0.00001 ABS# (0-10)
--- NOTE | 2023-07-18 14:22 | USCV_ITS ---
Janel Mesa Age: 57 Gender: F : 1965 Exam Date: 07/18/2023 15:11 Ordering Phys: Shawanda Streeter MD Technologist: Quentin Braswell Exam Location: [facility] [place] Indication: cva BP: 132 / 73 HR: 52 Rhythm: Sinus Technical Quality: Adequate, Very technically difficult study MEASUREMENTS (Male / Female) Normal Values 2D ECHO LV Diastolic Diameter PLAX 3.0 cm 4.2 - 5.9 / 3.9 - 5.3 cm LV Systolic Diameter PLAX 2.0 cm IVS Diastolic Thickness 1.2 cm 0.6 - 1.0 / 0.6 - 0.9 cm IVS Systolic Thickness 1.3 cm LVPW Diastolic Thickness 1.1 cm 0.6 - 1.0 / 0.6 - 0.9 cm LVPW Systolic Thickness 1.2 cm LVOT Diameter 2.1 cm LV Ejection Fraction 2D Teich 62.6 % LA Diameter 3.6 cm M-MODE Aortic Annulus Diameter 2.9 cm LA Ao Ratio MM 1.4 MV E Point Septal Separation 1.2 cm DOPPLER AV Peak Velocity 137.0 cm/s LVOT Peak Velocity 116.0 cm/s AV Area Cont Eq vti 2.8 cm squared AV Area Cont Eq pk 3.0 cm squared MV Area PHT 3.6 cm squared Mitral E to A Ratio 0.8 MV E' Velocity 63.0 cm/s TR Peak Velocity 192.7 cm/s TR Peak Gradient 14.8 mmHg TV Peak E Velocity 78.0 cm/s Right Atrial Pressure 3.0 mmHg Pulmonary Artery Systolic Pressu 17.8 mmHg RV Acceleration Time 0.1 s FINDINGS Left Ventricle Normal left ventricular size, systolic function and wall thickness, with no regional wall motion abnormalities. Left ventricular ejection fraction is estimated at 65 %. Right Ventricle Normal right ventricular size and systolic function. RVSP could not be calculated due to incomplete tricuspid regurgitation velocity profile. Right Atrium Normal right atrial size. Left Atrium Normal left atrial size. Mitral Valve Structurally normal mitral valve. Aortic Valve Aortic valve not well visualized. No aortic valve stenosis. No aortic valve regurgitation. Tricuspid Valve Structurally normal tricuspid valve. Trace tricuspid valve regurgitation. Pulmonic Valve Pulmonic valve not well visualized. Pericardium No pericardial effusion. Aorta Normal sized aortic root. IVC Inferior vena cava not visualized. CONCLUSIONS 1. This is a technically difficult study with limited windows. 2. Normal left ventricular size, systolic function and wall thickness, with no regional wall motion abnormalities. Left ventricular ejection fraction is estimated at 65 %. 3. No significant change when compared to study dated 06/05/2018. Christine Bhatia MD (Electronically Signed) Final Date: 18 July 2023 17:26 S
--- NOTE | 2023-07-18 14:22 | USCV_ITS ---
Janel Mesa Age: 57 Gender: F : 1965 Exam Date: 07/18/2023 15:25 Ordering Phys: Shawanda Streeter MD Technologist: Quentin Braswell Exam Location: [facility] [place] Indication: cva Risk Factors: Previous Vascular Surgery: Right Brachial BP: / Left Brachial BP: / Right Left Velocity (cm/s) Spectral Plaque Velocity (cm/s) Spectral Plaque Syst/Diast Broadening Syst/Diast Broadening 87.10/ 26.50 Prox CCA 77.70 / 23.30 61.70/ 23.20 Mid CCA 63.90 / 18.70 77.20/ 18.70 Distal CCA 75.00 / 20.90 72.00/ 20.00 Prox ICA 70.60 / 16.50 71.10/ 22.90 Mid ICA 80.50 / 26.50 124.30/49.70 Distal ICA 104.70/ 30.90 76.10 ECA 80.50 1.43 ICA/CCA 1.35 Antegrade Vertebral Antegrade 79.20/ 18.60 cm/s 35.00/ 10.90 cm/s Tri Subclavian Tri 91.70 FINDINGS Comparison: none available. No significant elevation of systolic or diastolic velocities. Waveforms are normal. Mild carotid atherosclerosis. Antegrade vertebral arteries. CONCLUSIONS Bilateral ICA stenosis less than 50%. Mild carotid atherosclerosis. Dr. Tia Gonzalez DO (Electronically Signed) Final Date: 18 July 2023 16:00 S
[2023-07-18] MEDS: sodium chloride 0.9% 1,000 ML 75 ML IV (14:45)
[2023-07-18 14:48] LABS: D Dimer 0.53 ug/mLFEU (0-0.59)
[2023-07-18 15:09] LABS: Estmated Average Glucose 120; Hemoglobin A1C 5.8 % (4.0-6.0)
[2023-07-18 15:13] LABS: Thyroid Stimulating Hormone 1.36 uIU/mL (0.27-4.20); Vitamin B12 317 pg/mL (232-1245)
[2023-07-18] MEDS: HYDROcodone-acetaminophen 5-325 mg Tablet 1 TAB PO (16:00)
[2023-07-18 16:16] LABS: Add Urine Microscopic? NO; Charge for UA Resulting for Rev
[2023-07-18 16:30] LABS: Bilirubin Urine Neg (Negative); Blood Urine Neg (Negative); Glucose Urine UA 4+ (Normal); Ketones Urine Negative (Negative); Leukocyte Esterase Urine Negative (Negative); Nitrate Urine Negative (Negative); Protein Urine Neg (Negative); Specific Gravity, Urine 1.015 (1.005-1.030); Urine Appearance Clear (CLEAR); Urine Color Dark Yellow (Yellow); Urobilinogen Urine Norm (Negative); pH Urine 5 (5-7)
[2023-07-18 18:46] LABS: Troponin 5 6HR 6.81 ng/L (0-10)
[2023-07-18] MEDS: metroNIDAZOLE 500 MG Tablet PO (20:03)
[2023-07-18] MEDS: gabapentin 300 mg Capsule PO (20:03)
[2023-07-18] MEDS: budesonide 0.5 mg/2 mL Neb INHALATION (20:40)
[2023-07-18] MEDS: albuterol 2.5 mg/3 mL Neb INHALATION (20:40)
[2023-07-19] MEDS: sodium chloride 0.9% 1,000 ML 75 ML IV (01:41)
[2023-07-19 03:57] VITALS: BP 111/64; PULSE 65; RESP 17; TEMP 36.8; O2SAT 95
[2023-07-19 05:50] VITALS: PULSE 60
[2023-07-19 06:37] LABS: Basophils % 0.9 %; Eosinophils # 0.1 10^3/uL (0.0-0.8); Eosinophils % 2.7 %; Hematocrit 38.8 % (36-47); Mean Corpuscular Hemoglobin 28.6 pg (27-33); Mean Corpuscular Volume 89.6 fl (85-98); Mean Platelet Volume 11.4 fL (7.4-10.4); Monocytes # 0.6 10^3/uL (0.2-0.9); Monocytes % 16.7 %; Neutrophils % 50.7 %; Nucleated Red Blood Cells % 0 %; Platelet Count 192 10^3/cmm (157-399); Red Blood Count 4.33 10^6/uL (3.85-5.65); White Blood Count 3.35 10^3/uL (3.29-11.43)
[2023-07-19 06:48] LABS: Anion Gap 9.4 (5-19); Blood Urea Nitrogen 6 mg/dL (6-20); Calcium 8.4 mg/dL (8.5-10.5); Carbon Dioxide 24 mmol/L (22-29); Chloride 107 mmol/L (98-107); Glomerular Filtration Rate 103.8 mL/min (90-130); Glucose 97 mg/dL (65-115); Magnesium 1.9 mg/dL (1.7-2.3); Osmolality Calculated 280 mOsm/kg (285-295); Potassium 4.4 mmol/L (3.5-5.1); Sodium 136 mmol/L (136-145)
[2023-07-19] MEDS: budesonide 0.5 mg/2 mL Neb INHALATION (07:19)
[2023-07-19] MEDS: albuterol 2.5 mg/3 mL Neb INHALATION (07:19)
[2023-07-19 07:20] VITALS: PULSE 62; RESP 18; O2SAT 97
[2023-07-19 07:28] VITALS: PULSE 59
[2023-07-19] MEDS: HYDROcodone-acetaminophen 5-325 mg Tablet 1 TAB PO (07:34)
[2023-07-19 08:00] VITALS: BP 139/74; PULSE 60; RESP 15; O2SAT 100
[2023-07-19] MEDS: gabapentin 300 mg Capsule 900 MG PO (08:23)
[2023-07-19] MEDS: metroNIDAZOLE 500 MG Tablet PO (08:24)
[2023-07-19] MEDS: lisinopril 5 mg Tablet PO (08:24)
--- NOTE | 2023-07-19 08:50 | PC.CHAP ---
Pastoral Care Encounter/Spiritual Assessment Type of Contact [] Declined circulation clerk visit [] Patient/Family/Request visit [] Outpatient visit [] Follow-up visit [] Physician referral [] Code/Alert [] Routine visit [] Staff referral [] Actively dying [] Patient sleeping [] Family support [] [] Out of room [] Palliative care [] [] Receiving care in room [] Pre-surgical visit [] Trauma [] Long length of stay [] ICU visit [x] Other:Contact precautions. Did not visit. Relational/Emotional Strength [] Patient feels connected with others/family/visitors/staff [] Distress [] Loneliness/isolation [] Abandonment Spirituality of Patient [] Person of Sofy [] Attends Druze of their Sofy [] Believes in Prayer [] Reads Bible or Denominational materials [] There are Spiritual issues to be addressed Education Director Interventions [] Prayer [] Active listening [] Non-anxious presence [] Spiritual/emotional support [] Crisis/trauma care [] Spiritual counseling [] Bereavement support [] Provided bereavement packet [] Provided Bible/devotional materials [] Provided toy/stuffed animal, coloring book to patient or family member [] Provided Communion [] Anointing/Kellogg [] Salvation [] Completed spiritual assessment [] Other: Impact on Illness or Injury [] Angry [] Fearful [] Anxious [] Often cries [] Exhaustion [] Unable to work [] Unable to attend samaritan [] Unable to walk/stand [] Unable to read [] Unable to drive [] Unable to eat/drink [] Unable to sleep [] Unable to be with family [] Patient intubated [] Other: Summary Time spent with patient
--- NOTE | 2023-07-19 09:43 | PM.DCS ---
Discharge Providers Date of Admission: 07/18/23 11:59 Date of Discharge: July 19, 2023 Attending Provider at Admission: Shawanda Streeter MD Attending Provider at Discharge: Shawanda Streeter MD Primary Care Provider: Matias Nunez DO Diagnoses at Discharge Discharge Diagnosis (1) Bradycardia: Status: Acute (2) Syncope: Status: Acute (3) History of Clostridium difficile infection: Status: Acute (4) Cervical spondylosis with radiculopathy: Status: Acute Reason for Visit Reason for Visit: stroke alert Hospital Course Hospital Course 57-year female who was admitted for management evaluation of presyncopal event, there was concern for bradycardia please note she had a Holter monitor or event monitor done in the past in 2020 which showed sinus bradycardia she never required any pacemaker, in the hospital telemetry showed sinus rhythm lowest heart rate was 57 she remained hemodynamic stable, patient is experiencing diarrhea for her C. 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 Echo unremarkable carotid Doppler unremarkable. Hemodynamically stable. She is being discharged with stable hemodynamics. Physical Exam Narrative: Awake and alert GCS 15 S1, S2 Abdomen soft Pleasant cooperative Discharge Data Studies Completed and Pending Completed Studies During Hospitalization Category Date Time Status CT head thrombolytic [id number] Stat Cat Scan 07/18/23 10:59 Completed XR chest 1V portable [id number] Stat Exams 07/18/23 10:59 Completed CV carotid duplex BI* [id number] Routine Ultrasound 07/18/23 14:22 Completed CV. echo complete* [id number] Routine Ultrasound 07/18/23 14:22 Completed Laboratory Results WBC 3.35 10^3/uL (3.29-11.43) 07/19/23 06:19 RBC 4.33 10^6/uL (3.85-5.65) 07/19/23 06:19 Hgb 12.40 g/dL (11.27-16.99) 07/19/23 06:19 Hct 38.8 % (36-47) 07/19/23 06:19 MCV 89.6 fl (85-98) 07/19/23 06:19 MCH 28.6 pg (27-33) 07/19/23 06:19 MCHC 32.0 g/dL (30-55) 07/19/23 06:19 RDW 16.0 % (12.1-15.1) H 07/19/23 06:19 Plt Count 192 10^3/cmm (157-399) 07/19/23 06:19 MPV 11.4 fL (7.4-10.4) H 07/19/23 06:19 Neut % (Auto) 50.7 % 07/19/23 06:19 Lymph % (Auto) 29.0 % 07/19/23 06:19 [place] % (Auto) 16.7 % 07/19/23 06:19 Eos % (Auto) 2.7 % 07/19/23 06:19 Baso % (Auto) 0.9 % 07/19/23 06:19 Neut # (Auto) 1.70 10^3/uL (1.8-7.7) L 07/19/23 06:19 Lymph # (Auto) 1.0 10^3/uL (0.8-4.8) 07/19/23 06:19 [place] # (Auto) 0.6 10^3/uL (0.2-0.9) 07/19/23 06:19 Eos # (Auto) 0.1 10^3/uL (0.0-0.8) 07/19/23 06:19 Baso # (Auto) 0.0 10^3/uL (0.0-0.1) 07/19/23 06:19 Nucleated RBC % (auto) 0 % 07/19/23 06:19 Nucleated RBCs # 0.0 /100WBC 07/19/23 06:19 PT 13.20 SECONDS (12.1-14.9) 07/18/23 11:21 INR 0.98 (0.8-1.2) 07/18/23 11:21 APTT 34.0 SECONDS (23.9-36.7) 07/18/23 11:21 D-Dimer 0.53 ug/mLFEU (0-0.59) 07/18/23 11:21 Sodium 136 mmol/L (136-145) 07/19/23 06:19 Potassium 4.4 mmol/L (3.5-5.1) 07/19/23 06:19 Chloride 107 mmol/L (98-107) 07/19/23 06:19 Carbon Dioxide 24 mmol/L (22-29) 07/19/23 06:19 Anion Gap 9.4 (5-19) 07/19/23 06:19 BUN 6 mg/dL (6-20) 07/19/23 06:19 Creatinine 0.6 mg/dL (0.5-0.9) 07/19/23 06:19 GFR Calculation 103.8 mL/min (90-130) 07/19/23 06:19 Glucose 97 mg/dL (65-115) 07/19/23 06:19 Estimat Average Glucose 120 07/18/23 11:21 Hemoglobin A1c 5.8 % (4.0-6.0) 07/18/23 11:21 Calculated Osmolality 280 mOsm/kg (285-295) L 07/19/23 06:19 Calcium 8.4 mg/dL (8.5-10.5) L 07/19/23 06:19 Magnesium 1.9 mg/dL (1.7-2.3) 07/19/23 06:19 Total Bilirubin 0.3 mg/dL (0.15-1.2) 07/18/23 11:21 AST 15 U/L (0-32) 07/18/23 11:21 ALT 8 U/L (0-33) 07/18/23 11:21 Alkaline Phosphatase 69 U/L (35-105) 07/18/23 11:21 Troponin T Baseline < 6 ng/L (0-10) 07/18/23 11:21 Troponin T 120 Minute 6.0 ng/L (0-10) 07/18/23 13:32 Delta Troponin T 0.22731 ABS# (0-10) 07/18/23 13:32 Troponin T Hi Sens 6Hr 6.81 ng/L (0-10) 07/18/23 17:26 Troponin T Hi Sens 6Hr Delta 0.57327 ng/L (0-12) 07/18/23 17:26 Total Protein 6.6 g/dL (6.6-8.7) 07/18/23 11:21 Albumin 4.2 g/dL (3.5-5.2) 07/18/23 11:21 Globulin 2.4 g/dL (1.3-4.6) 07/18/23 11:21 Vitamin B12 317 pg/mL (232-1245) 07/18/23 11:21 TSH 1.36 uIU/mL (0.27-4.20) 07/18/23 11:21 Urine Color Dark yellow (Yellow) 07/18/23 13:20 Urine Appearance Clear (CLEAR) 07/18/23 13:20 Urine pH 5 (5-7) 07/18/23 13:20 Ur Specific [place] 1.015 (1.005-1.030) 07/18/23 13:20 Urine Protein Neg (Negative) 07/18/23 13:20 Urine Glucose (UA) 4+ (Normal) H 07/18/23 13:20 Urine Ketones Negative (Negative) 07/18/23 13:20 Urine Blood Neg (Negative) 07/18/23 13:20 Urine Nitrate Negative (Negative) 07/18/23 13:20 Urine Bilirubin Neg (Negative) 07/18/23 13:20 Urine Urobilinogen Norm mg/dL (Negative) 07/18/23 13:20 Ur Leukocyte Esterase Negative (Negative) 07/18/23 13:20 Vitals Last Vital Signs Temp 98.2 F 07/19/23 03:57 Pulse 60 07/19/23 08:00 Resp 15 07/19/23 08:00 BP 139/74 07/19/23 08:00 Pulse Ox 100 07/19/23 08:00 O2 Del Method Room Air 07/19/23 08:00 Discharge Plan Discharge Patient Disposition: Home Condition: Stable Prescriptions: Continued lisinopril 5 mg tablet 5 mg PO DAILY@0900 albuterol sulfate 90 mcg/actuation aerosol powdr breath activated 2 inh INHALATION Q6H PRN (Reason: Shortness Of Breath) atorvastatin 20 mg tablet 20 mg PO BEDTIME (DME) Bone Growth Stimulator E0748 See Rx Instructions .Route .MEDSUPPLY Qty: 1 0RF Rx Instructions: As directed furosemide 40 mg Tablet 40 mg PO DAILY PRN (Reason: Weight Gain) ibuprofen 200 mg Tablet 200 - 400 mg PO Q6H PRN (Reason: Pain) budesonide-formoterol [Symbicort] 160-4.5 mcg/actuation Hfa Aerosol Inhaler 2 puff INHALATION BID Qty: 0 gabapentin 600 mg tablet 300 mg PO Q6H PRN (Reason: chronic pain) Rx Instructions: take with 300 mg trazodone 50 mg tablet 25 - 50 mg PO BEDTIME PRN (Reason: Sleep) metronidazole 500 mg tablet See Rx Instructions .ROUTE .COMPLEX Rx Instructions: Take 1 tablet three times daily for 2 weeks, then 1 tablet twice daily for 2 weeks, then once daily for 2 weeks, then 1 tablet every other day for 2 weeks. gabapentin 300 mg capsule 300 mg PO QID Rx Instructions: take with 600 mg potassium citrate 99 mg Capsule 99 mg PO DAILY PRN (Reason: unknown) hydrocodone-acetaminophen 5-325 mg tablet 1 tab PO DAILY PRN (Reason: Postop pain) Discharge Orders: Discharge Order (Routine); Ordered 07/19/23 Ordered By: Shawanda Streeter Referrals: Matias Nunez DO [Primary Care Provider] - 07/31/23 8:20 am Patient Instructions: Opioid Safety Discharge Attestations Time Spent in Discharge Care*: greater than 30 min Quality Metrics Clinical Quality Measures [ No reported AMI, CVA or VTE this stay] Coding Level of Care Code Acute Code for Chg Fwd Diagnoses Bradycardia R00.1 Syncope R55 History of Clostridium difficile infection Z86.19 Cervical spondylosis with radiculopathy M47.22
[2023-07-19 10:34] VITALS: BP 139/74; PULSE 60; RESP 15; O2SAT 100
== END 2023-07-19 10:35 | disposition home or self-care (01) ==
LOC: ER 13:00 → MEDSURG 13:17
PROVIDERS: Admitting Provider Internal Medicine; Emergency Provider Emergency Medicine; PCP Internal Medicine; Visit Provider Internal Medicine
DX: R00.1 Bradycardia, unspecified (principal); R55 Syncope and collapse; Z86.19 Personal history of other infectious and parasitic diseases; M47.22 Other spondylosis with radiculopathy, cervical region; I65.23 Occlusion and stenosis of bilateral carotid arteries; E78.5 Hyperlipidemia, unspecified; Z87.891 Personal history of nicotine dependence
CPT/HCPCS: 36415; 70450; 71045; 80048; 80053; 81003; 82607; 83036; 83735; 84443; 84484; 85025; 85378; 85610; 85730; 93005; 93306; 93880; 94640; 96360; 96361; 99285; G0378; J7030; J7613; J7626

== ENCOUNTER → 2023-12-19 08:12 | Outpatient (BNVA) | payer MEDICARE, OTHER, SELFPAY | PROVIDERS: PCP Internal Medicine; Visit Provider Orthopaedic Surgery | DX: Z98.1 Arthrodesis status (principal) | CPT/HCPCS: 72100; 99214 ==

== ENCOUNTER 2024-01-07 08:25 | Outpatient (CLI) | payer MEDICARE, OTHER, SELFPAY ==
--- NOTE | 2024-01-07 08:30 | CT_ITS ---
WS: [id number] CT ABDOMEN AND PELVIS WITH CONTRAST HISTORY: back pain, left-sided. TECHNIQUE: Imaging performed of the abdomen and pelvis with IV contrast. Single phase imaging of the abdomen. Coronal and sagittal reformats are submitted. All CT scans at [facility] use at [address] one of these dose optimization techniques: automated exposure control; mA and/or kV adjustment per patient size (includes targeted exams where dose is matched to clinical indication); or iterative re construction. IV CONTRAST: Omnipaque 350; 100 mL IV. Oral contrast: No DLP: 517.65 mGy.cm COMPARISON: 11/21/2021 Lower thorax: Lung bases are clear. Heart is normal size. Very small hiatal hernia. Liver/biliary system: Normal size with no intrahepatic dilatation. Gallbladder: Normal. No gallstones or wall thickening. No pericholecystic fluid. Pancreas: Normal size pancreas and pancreatic duct. No adjacent inflammation. Spleen: Normal size spleen. No mass or infarct. Adrenal glands: Normal. Right kidney: Normal. Left kidney: Normal. Aorta: Mild atherosclerosis with no aneurysm. Lymphadenopathy: None. Free fluid: None. GI tract: Nondistended stomach. No small bowel obstruction. Moderate to severe constipation. No obstr uction of the GI tract. Greatest fecal burden is in the cecum in the RIGHT lower quadrant. No evidenc e for acute diverticulitis. There are a few scattered diverticula in the descending and sigmoid colon . Prior appendectomy. Abdominal wall: Unremarkable abdominal wall. No hernia. Pelvis: No free fluid or adenopathy within the pelvis. Previously described cyst in the LEFT pelvis i s no longer present. Extensive calcification in the iliac arteries. Component of stenosis is likely. Bones: Prior posterior lumbosacral fusion extending from L3-S2. Posterior laminectomy defects through the surgical site. Fractures of the LEFT bone LEFT S1 pedicle screw. IMPRESSION: 1. Marked diffuse constipation. No obstruction. 2. No renal calcification or obstruction. 3. Prior appendectomy. 4. Atherosclerosis abdominal aorta and iliac arteries.
[2024-01-07] MEDS: iohexol 350 mg/mL 500 mL Btl (per mL) IV (08:50)
--- NOTE | 2024-01-07 09:00 | CT_ITS ---
WS: [id number] CT LUMBAR SPINE TECHNIQUE: Noncontrast CT of the lumbar spine with coronal and sagittal reformatted images. CLINICAL INFORMATION: back pain COMPARISON: MRI 05/09/[address] 05/01/2021 DLP: 517.[address] scans at [facility] use at least one of these dose optimization techniques: automated e xposure control; mA and/or kV adjustment per patient size (includes targeted exams where dose is matc hed to clinical indication); or iterative reconstruction. FINDINGS: Pedicle screw fixation L3-S1 with interconnecting rods. No evidence of hardware loosening. Bilatera l sacroiliac screw fixation. Mild lumbar curve. Abandoned LEFT S1 pedicle screw. Sacroiliac fusion is new compared to previous. Interbody fusion grafts 4 5 L1-L2: Normal L2-L3: Mild LEFT foraminal narrowing with a small LEFT foraminal protrusion. L3-L4: Spinal canal and foramina are patent. Laminectomy defects. L4-L5: Interbody fusion. Laminectomy defects. Spinal canal and foramen are patent. L5-S1: Mild disc bulging eccentric to the LEFT. Mild LEFT and no significant RIGHT foraminal narrowin g. Laminectomy defects. Visualized pelvic bony structures: Normal. Paravertebral soft tissues: Normal. IMPRESSION: 1. Postoperative changes as described above. 2. Interbody fusion graft L4-5 without significant bony bridging beyond the confines of the graft. 3. Abandoned LEFT S1 pedicle screw. 4. Sacroiliac fusion is new compared to previous. 5. Disc bulging L5-S1 eccentric to the LEFT with mild LEFT foraminal narrowing 6. Mild LEFT foraminal narrowing L2-3 with a small LEFT foraminal protrusion
== END 2024-01-07 08:26 | disposition home or self-care (01) ==
LOC: RAD 08:25
PROVIDERS: PCP Internal Medicine; Visit Provider Orthopaedic Surgery
DX: M54.9 Dorsalgia, unspecified (principal); I70.0 Atherosclerosis of aorta; I70.8 Atherosclerosis of other arteries; Z98.1 Arthrodesis status; M51.37 Other intervertebral disc degeneration, lumbosacral region
CPT/HCPCS: 72131; 74177; Q9967

== ENCOUNTER → 2024-01-21 07:56 | Outpatient (BNVA) | payer MEDICARE, OTHER, SELFPAY | PROVIDERS: PCP Internal Medicine; Visit Provider Orthopaedic Surgery | DX: M54.50 Low back pain, unspecified (principal); M79.605 Pain in left leg | CPT/HCPCS: 99213 ==

== ENCOUNTER 2024-02-03 11:49 | Outpatient (RCR) | payer MEDICARE, OTHER, SELFPAY | END 2024-02-21 23:59 | disposition home or self-care (01) | LOC: SPT 11:49 | PROVIDERS: Visit Provider Orthopaedic Surgery | DX: M48.062 Spinal stenosis, lumbar region with neurogenic claudication (principal) | CPT/HCPCS: 97110; 97161 ==

== ENCOUNTER 2024-02-22 06:00 | Outpatient (RCR) | payer MEDICARE, OTHER, SELFPAY | END 2024-03-11 23:59 | disposition home or self-care (01) | LOC: SPT 06:00 | PROVIDERS: Visit Provider Orthopaedic Surgery | DX: M48.062 Spinal stenosis, lumbar region with neurogenic claudication (principal) | CPT/HCPCS: 97110; 97140 ==

== ENCOUNTER → 2024-03-03 08:48 | Outpatient (BNVA) | payer MEDICARE, OTHER, SELFPAY | PROVIDERS: PCP Internal Medicine; Visit Provider Orthopaedic Surgery | DX: Z98.1 Arthrodesis status (principal) | CPT/HCPCS: 99214 ==

== ENCOUNTER → 2024-10-29 15:26 | Outpatient (BNVA) | payer MEDICARE, OTHER, SELFPAY | PROVIDERS: PCP Internal Medicine; Visit Provider Orthopaedic Surgery | DX: M48.062 Spinal stenosis, lumbar region with neurogenic claudication (principal) | CPT/HCPCS: 72110; 99214 ==

== ENCOUNTER 2024-11-30 08:43 | Outpatient (CLI) | payer MEDICARE, OTHER, SELFPAY ==
--- NOTE | 2024-11-30 08:48 | CT_ITS ---
WS: [id number] CT MYELOGRAM LUMBAR SPINE HISTORY: M54.9 - Dorsalgia, unspecified TECHNIQUE: Contiguous 2.5 mm axial imaging performed from T12 through the mid sacral level. Bone and soft tissue windows reviewed. Sagittal and coronal reformats are submitted and reviewed. DLP: 319.[address] scans at [facility] use at least one of these dose optimization techniques: automated exposure control; mA and/or kV adjustment per patient size (includes targeted exams where dose is matched to clinical indication); or iterative reconstruction. COMPARISON: 01/07/2024 Prior lumbosacral fusion. Fusion extends from L3-S2. S2 screws extend through the sacrum and SI joints. LEFT S1 pedicle screw is fractured at the base. Gap at 3.3 mm. No additional fracture is identified within the hardware. No change in the lucency surrounding the very distal tip of the LEFT S1 screw. No additional lucencies identified surrounding the screws or hardware. L1-L2: No stenosis. L2-L3: Annular disc bulging. Reidentified is the LEFT foraminal disc protrusion contacting the LEFT exiting L2 nerve root. Smaller RIGHT foraminal disc protrusion. Mild bilateral foraminal stenosis. L3-L4: Large posterior laminectomy defect. Patulous thecal sac. L4-L5: Patulous thecal sac. Mild disc bulging and osteophytosis. Mild foraminal stenosis. Progression of stenosis on the RIGHT at L4-5. Increasing effacement of fat. L5-S1: Patulous thecal sac with a large laminectomy defect. Shallow central disc protrusion. Mild foraminal stenosis. Scattered calcifications within the aorta. Nonobstructing LEFT renal calcifications. CT/CT lumbar spine w con [id number] IMPRESSION: 1. Status post lumbosacral fusion from L3-S2. 2. LEFT S1 pedicle screw is fractured at the base with a gap of 3.3 mm at the fracture site. 3. L2-3: LEFT foraminal disc protrusion contacts the exiting LEFT L2 nerve saray t. Smaller RIGHT foraminal disc protrusion. Mild bilateral foraminal stenosis. 4. Large laminectomy defects from L3-4 to L5-S1. 5. Progression of RIGHT foraminal stenosis at L4-5 with increasing effacement of fat in the foramen. 6. Mild foraminal stenosis at L5-S1.
--- NOTE | 2024-11-30 09:00 | IR_ITS ---
WS: [id number] LUMBAR MYELOGRAM HISTORY: Back Pain COMPARISON: 05/01/2021 FLUOROSCOPY TIME: 0min [id number] # of spot films: 1 Procedure, risks and complications were explained to the patient. Risks including bleeding, infection, headaches, allergic reaction and seizures. Consent has been obtained. With the patient in prone position the skin over the lumbar region is cleansed with ChloraPrep and anesthetized with lidocaine. 22-gauge spinal needle is inserted into the thecal sac at the appropriate level determined by fluoroscopy. Omnipaque 240; 12 ml is injected slowly under fluoroscopy with no complications. Needle bevel is perpendicular to the longitudinal fibers of the dura. Stylet is reinserted prior to removal of the needle. Patient tolerated the procedure well. Patient will proceed to CT for further evaluation. Status post posterior lumbosacral fusion from L3-S2. Good opacification of the thecal sac. IR/IR myelogram sp lumbar [id number] IMPRESSION: Uncomplicated lumbar myelogram. Patient to proceed for CT lumbar myelogram.
[2024-11-30] MEDS: iohexol 240 mg/mL 50 mL Btl 20 ML INTRATHECA (10:01)
== END 2024-11-30 08:44 | disposition home or self-care (01) ==
LOC: RAD 08:46
PROVIDERS: PCP Family Medicine; Visit Provider Orthopaedic Surgery
DX: M51.26 Other intervertebral disc displacement, lumbar region (principal); Z98.1 Arthrodesis status; M96.89 Other intraoperative and postprocedural complications and disorders of the musculoskeletal system; R93.7 Abnormal findings on diagnostic imaging of other parts of musculoskeletal system; M48.061 Spinal stenosis, lumbar region without neurogenic claudication; T84.226A Displacement of internal fixation device of vertebrae, initial encounter; X58.XXXA Exposure to other specified factors, initial encounter; M48.07 Spinal stenosis, lumbosacral region; M51.369 Other intervertebral disc degeneration, lumbar region without mention of lumbar back pain or lower extremity pain; G95.89 Other specified diseases of spinal cord; M25.78 Osteophyte, vertebrae; I70.0 Atherosclerosis of aorta; N28.1 Cyst of kidney, acquired
CPT/HCPCS: 62304; 72132

== ENCOUNTER → 2024-12-15 08:46 | Outpatient (BNVA) | payer MEDICARE, OTHER, SELFPAY | PROVIDERS: PCP Family Medicine; Visit Provider Orthopaedic Surgery | DX: Z98.1 Arthrodesis status (principal) | CPT/HCPCS: 99213 ==

== ENCOUNTER 2024-12-31 11:40 | Outpatient (RCR) | payer MEDICARE, OTHER, SELFPAY | END 2025-01-20 23:59 | disposition home or self-care (01) | LOC: SPT 11:40 | PROVIDERS: Visit Provider Orthopaedic Surgery | DX: G57.00 Lesion of sciatic nerve, unspecified lower limb (principal) | CPT/HCPCS: 97110; 97161 ==

== ENCOUNTER → 2025-01-07 08:01 | Outpatient (BNVA) | payer MEDICARE, OTHER, SELFPAY | PROVIDERS: PCP Family Medicine; Referring Provider Orthopaedic Surgery; Visit Provider Psychiatry & Neurology Neurology | DX: M48.062 Spinal stenosis, lumbar region with neurogenic claudication (principal); M54.50 Low back pain, unspecified; M79.605 Pain in left leg; Z98.1 Arthrodesis status; R10.32 Left lower quadrant pain; M96.1 Postlaminectomy syndrome, not elsewhere classified | CPT/HCPCS: 95885; 95910 ==

== ENCOUNTER → 2025-01-11 08:58 | Outpatient (BNVA) | payer MEDICARE, OTHER, SELFPAY | PROVIDERS: PCP Family Medicine; Visit Provider Anesthesiology Pain Medicine | DX: M48.062 Spinal stenosis, lumbar region with neurogenic claudication (principal); M54.2 Cervicalgia; M54.9 Dorsalgia, unspecified; M25.561 Pain in right knee; M96.1 Postlaminectomy syndrome, not elsewhere classified; Z79.891 Long term (current) use of opiate analgesic | CPT/HCPCS: 99214 ==

== ENCOUNTER 2025-01-13 15:31 | Outpatient (CLI) | payer MEDICARE, SELFPAY | END 2025-01-13 15:32 | disposition home or self-care (01) | LOC: SPT 15:31 | PROVIDERS: PCP Family Medicine; Visit Provider Podiatrist Foot & Ankle Surgery | DX: Z46.89 Encounter for fitting and adjustment of other specified devices (principal); S92.252D Displaced fracture of navicular [scaphoid] of left foot, subsequent encounter for fracture with routine healing; X58.XXXD Exposure to other specified factors, subsequent encounter | CPT/HCPCS: L4361 ==

== ENCOUNTER 2025-01-21 05:00 | Outpatient (RCR) | payer MEDICARE, OTHER, SELFPAY | END 2025-02-20 05:00 | disposition home or self-care (01) | LOC: SPT 05:00 | PROVIDERS: PCP Family Medicine; Visit Provider Orthopaedic Surgery | DX: G57.00 Lesion of sciatic nerve, unspecified lower limb (principal) | CPT/HCPCS: 97110; 97164 ==

== ENCOUNTER → 2025-02-01 14:36 | Outpatient (BNVA) | payer MEDICARE, SELFPAY | PROVIDERS: PCP Family Medicine; Visit Provider Podiatrist Foot & Ankle Surgery | DX: S92.252D Displaced fracture of navicular [scaphoid] of left foot, subsequent encounter for fracture with routine healing (principal); W22.8XXD Striking against or struck by other objects, subsequent encounter | CPT/HCPCS: 73630; 99213 ==

== ENCOUNTER → 2025-02-09 15:04 | Outpatient (BNVA) | payer MEDICARE, OTHER, SELFPAY | PROVIDERS: PCP Family Medicine; Visit Provider Orthopaedic Surgery | DX: M54.9 Dorsalgia, unspecified (principal); M48.062 Spinal stenosis, lumbar region with neurogenic claudication | CPT/HCPCS: 72110; 99213 ==

== ENCOUNTER 2025-02-21 06:00 | Outpatient (RCR) | payer MEDICARE, OTHER, SELFPAY | END 2025-03-12 07:40 | disposition home or self-care (01) | LOC: SPT 06:00 | PROVIDERS: PCP Family Medicine; Visit Provider Orthopaedic Surgery | DX: G57.00 Lesion of sciatic nerve, unspecified lower limb (principal) | CPT/HCPCS: 97110 ==

== ENCOUNTER → 2025-08-06 18:32 | Outpatient (BNVA) | payer MEDICARE, SELFPAY | PROVIDERS: PCP Family Medicine; Visit Provider Emergency Medicine | DX: R30.0 Dysuria (principal); N12 Tubulo-interstitial nephritis, not specified as acute or chronic | CPT/HCPCS: 81000; 87086 ==